=== PATIENT | male | born 1945 | race Caucasian/White ===

== ENCOUNTER 2016-11-05 07:56 | Day surgery (SDC) | payer MEDICARE ==
[2016-11-05] VITALS (7 sets, daily range): BP systolic 91–148; BP diastolic 51–68; PULSE 62–74; RESP 16–20; TEMP 98.4; O2SAT 93–96
[~2016-11-05] VITALS: Ht 172.7 cm; Wt 94.0 kg
[~2016-11-05 07:56] MED LIST: ASPI1TAB7; ATOR40TA49 PO; BUME1TAB PO; CLEAPOW6 PO; CLOP75 PO; METR0.7533 TOP; NITR.4 SL; POTA1TAB17 PO; SOTA120T17 PO; SPIRCAP INH; TAB-TAB PO; TAMS0.4C67 PO; TRIA.1%T TOP
[2016-11-05] MEDS ORDERED: PLAV75TA29 PO (08:36)
[2016-11-05] MEDS ORDERED: SOTA120T PO (08:36)
[2016-11-05] MEDS ORDERED: BUME1TAB26 PO (08:36)
[2016-11-05] MEDS ORDERED: EQUALIQ7 (08:36)
[2016-11-05] MEDS ORDERED: ASPI81TA81 (08:36)
[2016-11-05] MEDS ORDERED: TRIA0.022 TOPICAL (08:36)
[2016-11-05] MEDS ORDERED: POTA-163 PO (08:36)
[2016-11-05] MEDS ORDERED: NITR0.4S SL (08:36)
[2016-11-05] MEDS ORDERED: MULT1TAB78 (08:36)
[2016-11-05] MEDS ORDERED: TAMS0.4C4 PO (08:36)
[2016-11-05] MEDS ORDERED: METR0.756 TOPICAL (08:36)
[2016-11-05] MEDS ORDERED: ATOR40TA16 PO (08:36)
[2016-11-05 08:39] LABS: AUTOMATED NEUTROPHIL # 4.7 TH/MM3 (1.8-7.7); BASOPHIL # 0.1 TH/MM3 (0-0.2); BASOPHIL % 1.1 % (0.0-2.0); EOSINOPHIL # 0.2 TH/MM3 (0-0.4); HEMATOCRIT 39.8 % (39.0-51.0); HEMO FLAGS DIFF FINAL; LYMPH % 23.1 % (9.0-44.0); LYMPHOCYTE # 1.7 TH/MM3 (1.0-4.8); MEAN CELL VOLUME 94.2 FL (80.0-100.0); MEAN CORPUSCULAR HEMOGLOBIN 32.7 PG (27.0-34.0); MEAN CORPUSCULAR HGB CONC 34.7 % (32.0-36.0); MONO % 8.7 % (0.0-8.0); NEUT % 64.1 % (16.0-70.0); PLATELET COUNT 194 TH/MM3 (150-450); RED BLOOD COUNT 4.22 MIL/MM3 (4.50-5.90); RED CELL DISTRIBUTION WIDTH 14.2 % (11.6-17.2); WHITE BLOOD COUNT 7.3 TH/MM3 (4.0-11.0)
[2016-11-05 08:51] LABS: APTT (PATIENT) 26.4 SEC (24.3-30.1); PROTHROMBIN TIME - PATIENT 10.8 SEC (9.8-11.6)
[2016-11-05] MEDS ORDERED: SODIUM CHLOR 0.9% 1000 ML IV SCH (09:00)
[2016-11-05] MEDS ORDERED: LIDOCAINE 1%/EPINEPHrine 1:100,000 SOLN 20 ML VIAL ONE (11:45)
[2016-11-05] MEDS ORDERED: fentaNYL CITRATE 250 MCG/5 ML AMP ONE (12:01)
[2016-11-05] MEDS ORDERED: MIDAZOLAM HCL 5 MG/5 ML VIAL ONE (12:01)
[2016-11-05] MEDS ORDERED: oxyCODONE/ACETAMINOPHEN 5 MG/325 MG TAB PO PRN (13:15)
--- NOTE | 2016-11-05 14:23 | RADRPT ---
EXAM DATE/TIME: 11/05/2016 12:11 [facility] COMPARISON: No previous studies available for comparison. INDICATIONS : Right lung mass. SEDATION TIME: 30 minutes BIOPSY SITE: Right MEDICATION(S): 1.) 2 mg midazolam (Versed) IV 2.) 100 mcg fentanyl (Sublimaze) IV DEVICE(S): 1.) 20 gauge Temno core biopsy needle MEDICAL HISTORY : Cardiovascular disease. SURGICAL HISTORY : Pacemaker. ENCOUNTER: Initial ACUITY: 1 day PAIN SCORE: 0/10 LOCATION: Right chest A total of two core specimen(s) were obtained and sent to the laboratory for pathologic evaluation. PROCEDURE: 1. CT guided lung biopsy. 2. Conscious sedation with continuous EKG and oximetry monitoring. 3. EKG and oximetry remained stable throughout the procedure. Prior to the procedure informed consent was obtained. Any appropriate prior imaging studies were rev iewed. The site was prepped in a sterile fashion. Full sterile technique was used, including cap, mask, patricia rile gloves and gown and a large sterile sheet. Hand hygiene and 2% chlorhexidine and/or betadine/al cohol prep was utilized per protocol for cutaneous antisepsis. The skin and subcutaneous tissues wer e infiltrated with local anesthetic solution. Patient was placed prone. An 18 gauge bradycardia was placed down to the subcarinal region from righ t paravertebral approach. 2 cores were obtained. Follow-up CT scan reveals no pneumothorax. Conscious sedation was performed with the prescribed dosages and duration as above. The patient tracey ated the procedure well and there were no complications. EKG and oximetry remained stable throughout the procedure. The patient was sent to Radiology Outpatient Unit in stable condition. CONCLUSION: Uncomplicated CT guided biopsy. Preliminary pathology is markedly atypical cells. Dayton Ladd MD FACR on November 05, 2016 at 14:21 Board Certified Radiologist. This report was verified electronically.
--- NOTE | 2016-11-05 15:12 | RADRPT ---
EXAM DATE/TIME: 11/05/2016 14:23 [facility] COMPARISON: CHEST SINGLE AP, March 15, 2016, 9:59. CT NEEDLE BIOPSY LUNG, RIGHT, November 05, 2016, 12:11. INDICATIONS : Post lung biopsy MEDICAL HISTORY : None. SURGICAL HISTORY : Pacemaker. ENCOUNTER: Subsequent ACUITY: 1 day PAIN SCORE: 0/10 LOCATION: Bilateral chest FINDINGS: A single frontal expiratory view of the chest was performed. The right lung remains well inflated fo llowing percutaneous lung biopsy. Slight increased density is identified in the right infrahilar ranjan on. Lungs are hypoaerated. Pacemaker is in stable position. CONCLUSION: No evidence of pneumothorax following lung biopsy. Crow Bowman MD on November 05, 2016 at 15:02 Board Certified Radiologist. This report was verified electronically.
[2017-01-25] MEDS ORDERED: TAMS5CAP PO (14:50)
[2017-01-25] MEDS ORDERED: LEVA750T PO (14:57)
[2017-01-25] MEDS ORDERED: AZIT500T2 PO (16:52)
[2017-03-06] MEDS ORDERED: SOTA80 PO (07:18)
[2017-03-26] MEDS ORDERED: PLAV75TA29 PO (14:52)
== END 2016-11-05 15:30 | disposition home or self-care (01) ==
LOC: HRAD 07:56 → HRIP 07:57 → EDSTATUS 08:00 → HRAD 15:30
PROVIDERS: ATTEND Internal Medicine
DX: C34.91 Malignant neoplasm of unspecified part of right bronchus or lung (principal); I50.9 Heart failure, unspecified; I25.10 Atherosclerotic heart disease of native coronary artery without angina pectoris; Z95.0 Presence of cardiac pacemaker; Z79.01 Long term (current) use of anticoagulants; Z87.891 Personal history of nicotine dependence
CPT/HCPCS: 32405; 71010; 77012; 85025; 85610; 85730; 88305; 88333; J2250; J3010

== ENCOUNTER 2016-11-22 06:07 | Day surgery (SDC) | payer MEDICARE ==
[~2016-11-22] VITALS: Ht 172.7 cm; Wt 95.0 kg
[~2016-11-22 06:07] MED LIST changes: +ASPI81TA81; +ATOR40TA16 PO; +BUME1TAB26 PO; +EQUALIQ7; +METR0.756 TOPICAL; +MULT1TAB78; +NITR0.4S SL; +PLAV75TA29 PO; +POTA-163 PO; +SOTA120T PO; +TAMS0.4C4 PO; +TRIA0.022 TOPICAL
[2016-11-22 06:44] VITALS: BP 150/68; PULSE 65; RESP 20; TEMP 98.4; O2SAT 95
[2016-11-22] MEDS ORDERED: SODIUM CHLORIDE 0.9% 1000 ML IV SCH (06:45)
[2016-11-22] MEDS ORDERED: VANCOMYCIN 1000 MG/NS 250 ML - implanted port/tunneled catheter IV SCH ×2 (06:45)
[2016-11-22] MEDS ORDERED: POVIDONE IODINE 5% (ANTISEPSIS KIT) 4 APPLICATIONS EACH NARE SCH (06:45)
[2016-11-22] MEDS ORDERED: CHLORHEXIDINE GLUCONATE 2 % 1 PACK (2 CLOTHS) TOPICAL SCH (06:45)
[2016-11-22] MEDS ORDERED: STOO100C PO (06:48)
[2016-11-22] MEDS ORDERED: SPIRCAP INH (06:48)
[2016-11-22] MEDS ORDERED: PERC5TAB12 PO (06:48)
[2016-11-22 07:23] LABS: APTT (PATIENT) 26.6 SEC (24.3-30.1); PROTHROMBIN TIME - PATIENT 10.7 SEC (9.8-11.6)
[2016-11-22] MEDS ORDERED: diphenhydrAMINE HCL 50 MG/ML VIAL ONE (08:42)
[2016-11-22] MEDS ORDERED: MIDAZOLAM HCL 5 MG/5 ML VIAL ONE (09:07)
[2016-11-22] MEDS ORDERED: LEVOFLOXACIN 500 MG PREMIX INJ 100 ML IV ONE ×2 (09:07→09:30)
[2016-11-22] MEDS ORDERED: fentaNYL CITRATE 250 MCG/5 ML AMP ONE (09:07)
[2016-11-22] MEDS ORDERED: LIDOCAINE 1%/EPINEPHrine 1:100,000 SOLN 20 ML VIAL ONE (09:20)
--- NOTE | 2016-11-22 09:54 | PD.RAD ---
Post Procedure Progress Note Pre Procedure Diagnosis: (1) COPD (chronic obstructive pulmonary disease) (2) Lung cancer Post Procedure Diagnosis: (1) COPD (chronic obstructive pulmonary disease) (2) Lung cancer Procedure Date: Nov 22, 2016 Supervising Radiologist: Oz Pulido Proceduralist/Assist: Noelle Gayle, RT(R)(), Nikki Mahmood RT(R)(CV) Anesthesia: Local, Analgesia, Conscious Sedation Plan of Activity Patient to Unit: ROPU Patient Condition: Good See PACS Report for procedural detail/treatment Central Venous Access Device Procedure 1 Right Internal Jugular Infusaport Placement single lumen Maltese: 8 Oz Pulido MD Nov 22, 2016 09:54
[2016-11-22 10:00] VITALS: BP 143/83; PULSE 64; RESP 16; TEMP 97.6; O2SAT 94
[2016-11-22] MEDS ORDERED: SODIUM CHLORIDE 0.9% FLUSH 5 ML FLUSH IVF PRN (10:00)
[2016-11-22 10:15] VITALS: BP 114/80; PULSE 60; RESP 20; O2SAT 94
[2016-11-22 10:45] VITALS: BP 97/57; PULSE 60; RESP 20; O2SAT 94
[2016-11-22 11:15] VITALS: BP 108/84; PULSE 60; RESP 20; O2SAT 92
--- NOTE | 2016-11-27 14:59 | RADRPT ---
EXAM DATE/TIME: 11/22/2016 09:13 [facility] COMPARISON: No previous studies available for comparison. INDICATIONS : Lung cancer. MEDICAL HISTORY : 1. Lung cancer 2.CHF 3.A fib 4.CAD 5.Kidney stones SURGICAL HISTORY : 1. Pacemaker 2. coronary stents 3. Fem pop graft 4.CEA 5. Iliac bypass 6. TURP ENCOUNTER: Initial ACUITY: 2 months PAIN SCORE: FLUORO TIME: 0.9 minutes SEDATION TIME: 30 minutes ACCESS: Right internal jugular vein SEDATION: 1.) 1.5 mg midazolam (Versed) IV 2.) 100 mcg fentanyl (Sublimaze) IV 3.) 500mg levofloxacin (Levaquin) IV Intra-procedural antibiotics were given as prescribed above. DEVICE: 1. 8 [place]e single lumen Bard Power Port PROCEDURE : 1. Continuous pulse oximetry and EKG monitoring. 2. Intravenous conscious sedation. 3. Ultrasound guidance for venous access. 4. Fluoroscopic guided implantable central venous port placement. The patient was placed supine. The neck was prepped in sterile fashion. Full sterile technique was u sed, including cap, mask, sterile gloves and gown, and a large sterile sheet. Hand hygiene and 2% ch lorhexidine Betadine was utilized per protocol for cutaneous antisepsis with appropriate dry time for site. The skin and subcutaneous tissues were infiltrated with local anesthetic solution. Under direct ultrasound guidance, central venous access was accomplished in the targeted vessel. The ultrasound images depicting access guidance were stored and saved to PACS for permanent record. A s ubcutaneous pocket was created using blunt dissection. The port was introduced to the pocket. The c atheter tubing was fed through a subcutaneous tunnel to the venotomy site. The catheter tubing was c ut to a suitable length and then was introduced through a valved Peel-Away sheath and positioned with catheter tubing tip at the cavo-atrial junction level. The pocket incision was closed with subcutic ular Vicryl suture. Steri-Strips were applied. The port was flushed and locked with heparin solutio n per protocol. Sterile dressing was applied to the site. The patient tolerated the procedure well. Conscious sedation was performed with the prescribed dosages and duration as above. The patient tracey ated the procedure well and there were no complications. EKG and oximetry remained stable throughout the procedure. The patient was sent to post anesthesia recovery in stable condition. CONCLUSION: Uncomplicated ultrasound and fluoroscopic guided implanted central venous port catheter placement as described in detail above. An 8 Surinamese Power port was placed. Oz Pulido MD on November 27, 2016 at 14:57 Board Certified Radiologist. This report was verified electronically.
[2017-01-25] MEDS ORDERED: TAMS5CAP PO (14:50)
[2017-01-25] MEDS ORDERED: LEVA750T PO (14:57)
[2017-01-25] MEDS ORDERED: AZIT500T2 PO (16:52)
[2017-03-06] MEDS ORDERED: SOTA80 PO (07:18)
[2017-03-26] MEDS ORDERED: PLAV75TA29 PO (14:52)
== END 2016-11-22 12:05 | disposition home or self-care (01) ==
LOC: HROP 06:07 → HRIP 06:07 → HROP 12:05
PROVIDERS: ATTEND Internal Medicine
DX: Z45.2 Encounter for adjustment and management of vascular access device (principal); C34.90 Malignant neoplasm of unspecified part of unspecified bronchus or lung
CPT/HCPCS: 36561; 76937; 77001; 85610; 85730; 99152; 99153; C1788; J1200; J1642; J2250; J3010; J3370; J7030; J7050; J1956

== ENCOUNTER 2017-01-31 05:25 | Inpatient (IN) | payer MEDICARE ==
[~2017-01-31] VITALS: Ht 172.7 cm; Wt 91.0 kg
[2017-01-31] VITALS (15 sets, daily range): BP systolic 98–151; BP diastolic 50–67; PULSE 80–95; RESP 16–25; TEMP 96.8–99.7; O2SAT 93–99
[~2017-01-31 05:25] MED LIST changes: +AZIT500T2 PO; -CLEAPOW6 PO; +PERC5TAB12 PO; -SOTA120T17 PO; +STOO100C PO; -TAMS0.4C4 PO; -TAMS0.4C67 PO; +TAMS5CAP PO
[2017-01-31] MEDS ORDERED: ONDANSETRON HCL 4 MG/2 ML VIAL IV PUSH ONE (06:00)
[2017-01-31] MEDS ORDERED: SODIUM CHLORID 0.9% 500 ML INJ 500 ML IV ONE (06:00)
--- NOTE | 2017-01-31 06:16 | PD ---
HPI Chief Complaint: GI Complaint Time Seen by Provider: 05:49 Travel History International Travel<30 days: No Contact w/Intl Traveler<30days: No Traveled to known affect area: No History of Present Illness HPI Patient is a 71-year-old male with history of lung cancer currently receiving chemotherapy, who comes in by EMS after he passed out tonight. She had 3 rounds of chemotherapy that finished Saturday, and says he has been feeling unwell since then. He generally has nausea and vomiting after chemotherapy, and says that that is the same. However tonight he passed out and hit his head on the wall. He is currently on doxycycline for congestion. He has not had any fever or chills. He says he has pain in his esophagus from the chemotherapy. He is on blood thinners. PFSH Past Medical History Hx Anticoagulant Therapy: Yes (PLAVIX) Atrial Fibrillation: Yes Heart Rhythm Problems: Yes (AFIB) Cancer: Yes (LUNG CANCER) Cardiac Catheterization: Yes (STENT) Cardiovascular Problems: Yes (STENT) High Cholesterol: No Chemotherapy: Yes Congestive Heart Failure: Yes Diabetes: No Diminished Hearing: No Hepatitis: No Respiratory: Yes (SLEEP APNEA,COPD) Immunizations Current: Yes Past Surgical History Cardiac Surgery: Yes (PACEMAKER) Coronary Artery Bypass Graft: No Pacemaker: Yes Other Surgery: Yes (LUNG BIOPSY, FEMPOP BYPASS) Social History Alcohol Use: No Tobacco Use: No Substance Use: No Allergies-Medications (Allergen,Severity, Reaction): Coded Allergies: Adhesives (Verified Allergy, Severe, Irritation, 01/31/17) pt. sts from the adhesive in cardiac pads and to use pediatric pads only Morphine (Verified Allergy, Intermediate, Bradycardia, 01/31/17) Penicillin (Verified Allergy, Intermediate, respiratory , 01/31/17) Reported Meds & Prescriptions Reported Meds & Active Scripts Active Azithromycin 500 Mg Tab 500 Mg PO DAILY Flomax (Tamsulosin HCl) 0.4 Mg Cap 0.8 Mg PO HS Plavix (Clopidogrel Bisulfate) 75 Mg Tab 75 Mg PO DAILY Spiriva Handihaler (Tiotropium [place]) 18 Mcg Cap 1 Puff INH DAILY DO NOT SWALLOW CAPSULES Aristocort (Triamcinolone Acetonide) 0.1 % Cre 1 Applic TOP ONCE APPLY TO: [place] (Metronidazole) 0.75 % Gel 1 Applic TOP DAILY APPLY TO: Lipitor 40 Mg Tab (Atorvastatin Calcium) 40 Mg Tab 40 Mg PO DAILY Reported Spiriva Handihaler (Tiotropium Inh) 18 Mcg Cap 18 Mcg INH DAILY 1 capsule = 18 mcg Percocet (Oxycodone-Acetaminophen) 5-325 mg Tab 1 Tab PO Q4H PRN Stool Softener (Docusate Sodium) 100 Mg Cap 1 Cap PO DAILY Equate (Nutritional Supplements) 1 Liq Liq Multivitamin Adults 50+ (Multiple Vitamins W/ Minerals) 1 Tab Tab Aspir-81 (Aspirin) 81 Mg Tabdr Nitrostat SL (Nitroglycerin) 0.4 Mg Subl 0.4 Mg SL DIRECTED PRN 1 tablet under the tongue as needed for chest pain. Repeat every 5 minutes for a total of 3 DOSES or call 911 if NO relief. Triamcinolone Topical 0.025 % Oint 1 Applic TOPICAL BID Metrocream Topical (Metronidazole Topical) 0.75 % Cream 1 Applic TOPICAL BID Sotalol (Sotalol HCl) 120 Mg Tab 120 Mg PO BID Plavix (Clopidogrel Bisulfate) 75 Mg Tab 75 Mg PO DAILY Bumex (Bumetanide) 1 Mg Tab 1 Mg PO DAILY Potassium Chloride ER (Potassium Chloride) 20 Meq Tab 20 Meq PO DAILY Atorvastatin (Atorvastatin Calcium) 40 Mg Tab 40 Mg PO HS Multivitamin (Multivitamins) 1 Tab Tab 1 Tab PO DAILY Potassium Chloride Er (Potassium Chloride) 20 Meq Tab 20 Meq PO DAILY Aspirin 81 mg Tab (Aspirin) 81 Mg Tab 81 Mg DAILY Nitroglycerin Tab 0.4 Mg Sl (Nitroglycerin) 0.4 Mg Subl 0.4 Mg SL DIRECTED to be used as needed for chest pain every 15 minutes x 3 or until chest pain resolved Bumex (Bumetanide) 1 Mg Tab 1 Mg PO DAILY Review of Systems Except as stated in HPI: all other systems reviewed are Neg General / Constitutional: No: Fever, Chills Eyes: No: Blurred Vision HENT: Positive: Headaches Cardiovascular: No: Chest Pain or Discomfort Respiratory: No: Shortness of Breath Gastrointestinal: Positive: Nausea, Vomiting, Diarrhea Musculoskeletal: No: Edema Skin: No Change in Pigmentation Neurologic: Positive: Weakness Physical Exam Narrative GENERAL: Awake and alert, in mild distress. SKIN: Focused skin assessment warm/dry. HEAD: Atraumatic. Normocephalic. No obvious hematoma EYES: Pupils equal and round. No scleral icterus. Extraocular movements intact. ENT: Mucous membranes pink and moist. NECK: Trachea midline. No JVD. No cervical spine tenderness. CARDIOVASCULAR: Regular rate and rhythm. No murmur appreciated. RESPIRATORY: No accessory muscle use. Clear to auscultation. Breath sounds equal bilaterally. GASTROINTESTINAL: Abdomen soft, non-tender, nondistended. MUSCULOSKELETAL: No obvious deformities. No clubbing. No cyanosis. No edema. Large hematoma to the left hand. NEUROLOGICAL: Awake and alert. No obvious cranial nerve deficits. Motor grossly within normal limits. Normal speech. PSYCHIATRIC: Appropriate mood and affect; insight and judgment normal. Data Data Last Documented VS Vital Signs Date Time Temp Pulse Resp B/P Pulse Ox O2 Delivery O2 Flow Rate FiO2 01/31/17 07:01 84 16 120/56 96 Room Air 01/31/17 05:43 98.6 Orders Complete Blood Count With Diff (01/31/17 05:49) Basic Metabolic Panel (Bmp) (01/31/17 05:49) Act Partial Throm Time (Ptt) (01/31/17 05:49) Prothrombin Time / Inr (Pt) (01/31/17 05:49) Ct Brain W/O Iv Contrast(Rout) (01/31/17 ) Chest, Single Ap (01/31/17 ) Ondansetron Inj (Zofran Inj) (01/31/17 06:00) Sodium Chlorid 0.9% 500 Ml Inj (Ns 500 M (01/31/17 06:00) Hand, Complete (Xeh2heb) (01/31/17 ) Electrocardiogram (01/31/17 ) Troponin I (01/31/17 06:16) Cefepime Inj (Maxipime Inj) (01/31/17 06:45) Vancomycin Inj (Vancomycin Inj) (01/31/17 06:45) Blood Culture (01/31/17 06:40) Type And Screen (01/31/17 06:40) Red Blood Cells (Rbc) (01/31/17 06:40) Platelet Pheresis (01/31/17 06:40) Blood Product Administration .UPON TRANSFUSION (01/31/17 06:40) Sodium Chlor 0.9% 250 Ml Inj (Ns 250 Ml (01/31/17 06:45) Labs Laboratory Tests Test 01/31/17 06:00 White Blood Count 0.5 TH/MM3 Red Blood Count 2.39 MIL/MM3 Hemoglobin 7.7 GM/DL Hematocrit 21.5 % Mean Corpuscular Volume 89.9 FL Mean Corpuscular Hemoglobin 32.3 PG Mean Corpuscular Hemoglobin 36.0 % Concent Red Cell Distribution Width 19.6 % Platelet Count 5 TH/MM3 Mean Platelet Volume 10.5 FL Neutrophils (%) (Auto) % Lymphocytes (%) (Auto) % Monocytes (%) (Auto) % Eosinophils (%) (Auto) % Basophils (%) (Auto) % Neutrophils # (Auto) TH/MM3 Lymphocytes # (Auto) TH/MM3 Monocytes # (Auto) TH/MM3 Eosinophils # (Auto) TH/MM3 Basophils # (Auto) TH/MM3 CBC Comment AUTO DIFF Differential Total Cells 50 Counted Lymphocytes % 88 % Monocytes % 2 % Eosinophils % 8 % Basophils % 2 % Differential Comment FINAL DIFF MANUAL Atypical Lymphocytes % Platelet Estimate RARE Platelet Morphology Comment NORMAL Ovalocytes 1+ Keratocytes OCC Prothrombin Time 11.4 SEC Prothromb Time International 1.0 RATIO Ratio Activated Partial 24.4 SEC Thromboplast Time Sodium Level 137 MEQ/L Potassium Level 3.0 MEQ/L Chloride Level 104 MEQ/L Carbon Dioxide Level 21.7 MEQ/L Anion Gap 11 MEQ/L Blood Urea Nitrogen 20 MG/DL Creatinine 0.92 MG/DL Estimat Glomerular Filtration 81 ML/MIN Rate Random Glucose 139 MG/DL Calcium Level 8.4 MG/DL [facility] Medical Decision Making Medical Screen Exam Complete: Yes Emergency Medical Condition: Yes Medical Record Reviewed: Yes Interpretation(s) ECG is paced Differential Diagnosis Nausea and vomiting secondary to chemotherapy versus neutropenia versus ICH versus arrhythmia Narrative Course Patient is a 71-year-old male with history of lung cancer, on chemotherapy who comes in after syncopal episode tonight. Patient is a large hematoma to his left hand. IV established, labs sent. Labs show a white blood cell count of 0.5. Platelets are 5. Hemoglobin is 7.7. CT head performed shows no acute abnormalities. X-ray of his hand just shows soft tissue swelling. I spoke with Dr. Hays from oncology who suggests transfusion of red blood cells as well as platelets. This was ordered. Blood culture sent. Given cefepime and vancomycin. Will be admitted for further management. Given Zofran and fluids with improvement of his symptoms. Diagnosis Primary Impression: Pancytopenia Additional Impressions: Neutropenia Qualified Code: D70.1 - Chemotherapy-induced neutropenia Syncope Qualified Code: R55 - Syncope, unspecified syncope type Admitting Information Admitting Physician Requests: it Jennifer Cruz MD Jan 31, 2017 06:16
[2017-01-31 06:18] LABS: APTT (PATIENT) 24.4 SEC (24.3-30.1); PROTHROMBIN TIME - PATIENT 11.4 SEC (9.8-11.6)
--- NOTE | 2017-01-31 06:18 | RADRPT ---
EXAM DATE/TIME: 01/31/2017 05:47 [facility] COMPARISON: CHEST SINGLE AP, March 15, 2016, 9:59. INDICATIONS : Cough. MEDICAL HISTORY : Carcinoma, lung. Congestive heart failure. Renal calculi. A-Fib CAD SURGICAL HISTORY : Pacemaker. Coronary artery stent. ENCOUNTER: Initial ACUITY: 1 day PAIN SCORE: 0/10 LOCATION: Bilateral chest FINDINGS: A single view of the chest demonstrates the lungs to be symmetrically aerated without evidence of mas s, infiltrate or effusion. The cardiomediastinal contours are unremarkable. Osseous structures are intact. Chronic elevation of the left hemidiaphragm. Dual-lead pacing device on the left side. Power port on the right side. CONCLUSION: No acute disease. Thomas Díaz Jr., MD on January 31, 2017 at 6:16 Board Certified Radiologist. This report was verified electronically.
[2017-01-31 06:19] LABS: HEMATOCRIT 21.5 % (39.0-51.0); MEAN CELL VOLUME 89.9 FL (80.0-100.0); MEAN CORPUSCULAR HEMOGLOBIN 32.3 PG (27.0-34.0); RED BLOOD COUNT 2.39 MIL/MM3 (4.50-5.90); RED CELL DISTRIBUTION WIDTH 19.6 % (11.6-17.2); WHITE BLOOD COUNT 0.5 TH/MM3 (4.0-11.0)
[2017-01-31 06:24] LABS: BICARBONATE 21.7 MEQ/L (21.0-32.0)
--- NOTE | 2017-01-31 06:26 | RADRPT ---
EXAM DATE/TIME: 01/31/2017 06:07 [facility] COMPARISON: No previous studies available for comparison. INDICATIONS : Fell forward and hit head on wall. Patient on chemotherapy and Plavix. RADIATION DOSE: 49.85 CTDIvol (mGy) MEDICAL HISTORY : Carcinoma, lung. Cardiovascular disease SURGICAL HISTORY : Cardiac stent, pacemaker ENCOUNTER: Initial ACUITY: 1 day PAIN SCALE: 3/10 LOCATION: Bilateral cranial TECHNIQUE: Multiple contiguous axial images were obtained of the head. Using automated exposure control and adj ustment of the mA and/or kV according to patient size, radiation dose was kept as low as reasonably a chievable to obtain optimal diagnostic quality images. FINDINGS: CEREBRUM: The ventricles are normal for age. No evidence of midline shift, mass lesion, hemorrhage or acute in farction. No extra-axial fluid collections are seen. POSTERIOR FOSSA: The cerebellum and brainstem are intact. The 4th ventricle is midline. The cerebellopontine angle i s unremarkable. EXTRACRANIAL: The visualized portion of the orbits is intact. Complete opacification of the ethmoid air cells bilat erally. Minimal mucosal thickening of the maxillary sinuses bilaterally. SKULL: The calvaria is intact. No evidence of skull fracture. CONCLUSION: 1. No acute intracranial abnormality. 2. 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 Thomas Díaz Jr., MD on January 31, 2017 at 6:23 Board Certified Radiologist. This report was verified electronically.
[2017-01-31 06:30] LABS: HEMO FLAGS AUTO DIFF
[2017-01-31 06:31] LABS: PLATELET COUNT 5 TH/MM3 (150-450)
[2017-01-31] MEDS ORDERED: VANCOMYCIN INJ 1,000 MG in SODIUM CHLOR 0.9% 250 ML INJ 250 ML IV ONE (06:45)
[2017-01-31] MEDS ORDERED: SODIUM CHLOR 0.9% 250 ML INJ 250 ML IV ONE (06:45)
[2017-01-31] MEDS ORDERED: CEFEPIME INJ 2,000 MG in SODIUM CHLORIDE 0.9% INJ 100 ML IV ONE (06:45)
--- NOTE | 2017-01-31 06:54 | RADRPT ---
EXAM DATE/TIME: 01/31/2017 06:18 [facility] COMPARISON: No previous studies available for comparison. INDICATIONS : Left hand hematoma post fall. MEDICAL HISTORY : Carcinoma, lung. Congestive heart failure. Renal calculi. A-fib CAD SURGICAL HISTORY : Pacemaker. Coronary artery stent. ENCOUNTER: Subsequent ACUITY: 1 day PAIN SCORE: 5/10 LOCATION: Left hand FINDINGS: Three view examination of the left hand demonstrates no dislocation or fracture. Dorsal soft tissue s welling. The carpal bones appear intact. The interphalangeal and metacarpophalangeal joints are int act. Bony mineralization is normal. CONCLUSION: 1. Dorsal soft tissue swelling. Thomas Díaz Jr., MD on January 31, 2017 at 6:51 Board Certified Radiologist. This report was verified electronically.
[2017-01-31 07:13] LABS: BASOPHILS 2 % (0-2); EOSINOPHILS 8 % (0-4); WBC DIFF SAMPLE 50
[2017-01-31 07:14] LABS: KERATOCYTES OCC (NORMAL); OVALOCYTES 1+ (NORMAL); PLATELET ESTIMATE SMEAR RARE (NORMAL); PLATELET MORPHOLOGY NORMAL (NORMAL); SCAN/DIFF FINAL DIFF MANUAL
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
[2017-01-31] MEDS ORDERED: SODIUM CHLORIDE 0.9% FLUSH 10 ML FLUSH IV FLUSH PRN (08:15)
[2017-01-31] MEDS ORDERED: MORPHINE SULFATE 4 MG/ML INJ IV PRN (08:15)
[2017-01-31] MEDS ORDERED: oxyCODONE/ACETAMINOPHEN 5 MG/325 MG TAB PO PRN (08:15)
[2017-01-31] MEDS ORDERED: oxyCODONE/ACETAMINOPHEN 10 MG/325 MG TAB PO PRN (08:15)
[2017-01-31] MEDS ORDERED: ZOLPIDEM TARTRATE 5 MG TAB PO PRN (08:15)
[2017-01-31] MEDS ORDERED: NITROGLYCERIN 0.4 MG SL 25 TABS/BTL SL PRN (08:15)
[2017-01-31] MEDS: BUMETANIDE 1 MG TAB PO SCH (09:00)
[2017-01-31] MEDS: DOCUSATE SODIUM 100 MG CAP PO SCH (09:00)
[2017-01-31] MEDS: SODIUM CHLORIDE 0.9% FLUSH 10 ML FLUSH IV FLUSH SCH ×2 (09:00→19:50)
[2017-01-31] MEDS ORDERED: PILL SPLITTER OTHER PRN (09:30)
[2017-01-31] MEDS: FLUOCINOLONE ACETONIDE 0.01% CR 15 GM TUBE TOPICAL SCH ×2 (10:00→19:56)
[2017-01-31] MEDS ORDERED: POTASSIUM CHLORIDE 20 MEQ CONTROLLED RELEASE TAB PO SCH (10:00)
[2017-01-31] MEDS: TIOTROPIUM BROMIDE 18 MCG INH INH SCH (11:35)
[2017-01-31] MEDS: SOTALOL HCL 80 MG TAB PO SCH ×2 (11:35→19:55)
--- NOTE | 2017-01-31 12:48 | EKG ---
Date Performed: 01/31/2017 Time Performed: 07:07:12 PTAGE: 71 years EKG: ELECTRONIC ATRIAL PACEMAKER ABNORMAL RHYTHM ECG PREVIOUS TRACING : 03/16/2016 08.04 Compared to prior tracing no significant change DOCTOR: Cesar Bhat Interpretating Date/Time 01/31/2017 12:46:55
[2017-01-31] MEDS: SODIUM CHLOR 0.9% 1000 ML INJ 1,000 ML IV SCH (17:29)
[2017-01-31 17:41] LABS: MEAN CELL VOLUME 85.1 FL (80.0-100.0); MEAN CORPUSCULAR HEMOGLOBIN 29.9 PG (27.0-34.0); MEAN CORPUSCULAR HGB CONC 35.2 % (32.0-36.0); RED BLOOD COUNT 2.39 MIL/MM3 (4.50-5.90); RED CELL DISTRIBUTION WIDTH 22.6 % (11.6-17.2); WHITE BLOOD COUNT 0.3 TH/MM3 (4.0-11.0)
[2017-01-31 18:11] LABS: HEMO FLAGS AUTO DIFF
[2017-01-31 18:15] LABS: HEMATOCRIT 20.3 % (39.0-51.0); PLATELET COUNT 18 TH/MM3 (150-450)
[2017-01-31 19:23] LABS: BASOPHILS 1 % (0-2); EOSINOPHILS 8 % (0-4); WBC DIFF SAMPLE 100
[2017-01-31 19:24] LABS: OVALOCYTES 1+ (NORMAL)
[2017-01-31 19:25] LABS: PLATELET ESTIMATE SMEAR RARE (NORMAL); PLATELET MORPHOLOGY NORMAL (NORMAL); SCAN/DIFF FINAL DIFF MANUAL; TEARDROP RBCS 1+ (NORMAL)
[2017-01-31] MEDS: TAMSULOSIN HCL 0.4 MG CAP PO SCH (19:54)
[2017-01-31] MEDS: ATORVASTATIN 40 MG TAB PO SCH (19:54)
[2017-01-31] MEDS ORDERED: POTASSIUM CHLORIDE 20 MEQ CONTROLLED RELEASE TAB PO ONE (20:00)
[2017-01-31 21:03] LABS: MEAN CORPUSCULAR HGB CONC 36.1 % (32.0-36.0)
--- NOTE | 2017-01-31 23:15 | PD.ONC.PN ---
Subjective Subjective Remarks Patient seen earlier in AM Full consult dictated patient with Limited stage small cell carcinoma--presents with Pancytopenia and syncopal episode due to severe anemia Transfuse 1 unit of pRBC and platelets Keep Hb > [address] > 10 Start IV cefepime follow blood cultures Will follow patient along Objective Data Date Time Temp Pulse Resp B/P Pulse Ox O2 Delivery O2 Flow Rate FiO2 01/31/17 20:00 96.8 80 17 111/56 93 01/31/17 16:00 99.7 85 18 98/50 95 01/31/17 14:50 95 01/31/17 12:40 97.3 80 18 108/50 95 01/31/17 11:50 88 17 122/59 96 Nasal Cannula 01/31/17 11:00 86 17 113/52 97 Nasal Cannula 2 01/31/17 10:37 98.2 82 25 99/53 95 Room Air 01/31/17 10:09 98.6 90 19 112/56 96 Room Air 01/31/17 09:17 98.2 89 21 116/58 98 Room Air 01/31/17 08:43 98.1 90 24 115/55 97 Room Air 01/31/17 08:20 98.6 80 21 111/57 95 Room Air 01/31/17 07:01 84 16 120/56 96 Room Air 01/31/17 05:43 98.6 82 20 151/67 99 Room Air 01/31/17 05:42 20 01/31/17 05:39 98.6 82 20 151/67 99 01/31/17 01/31/17 01/31/17 07:00 15:00 23:00 Intake Total 480 ml 240 ml Output Total 400 ml 400 ml Balance 80 ml -160 ml Result Diagram: 01/31/17 1729 01/31/17 0600 Laboratory Results Laboratory Tests Test 01/31/17 01/31/17 01/31/17 01/31/17 06:00 07:10 17:29 19:27 White Blood Count 0.5 TH/MM3 0.3 TH/MM3 Red Blood Count 2.39 MIL/MM3 2.39 MIL/MM3 Hemoglobin 7.7 GM/DL 7.1 GM/DL Hematocrit 21.5 % 20.3 % Mean Corpuscular Volume 89.9 FL 85.1 FL Mean Corpuscular Hemoglobin 32.3 PG 29.9 PG Mean Corpuscular Hemoglobin 36.0 % 35.2 % Concent Red Cell Distribution Width 19.6 % 22.6 % Platelet Count 5 TH/MM3 18 TH/MM3 Mean Platelet Volume 10.5 FL 7.3 FL Neutrophils (%) (Auto) % % Lymphocytes (%) (Auto) % % Monocytes (%) (Auto) % % Eosinophils (%) (Auto) % % Basophils (%) (Auto) % % Neutrophils # (Auto) TH/MM3 TH/MM3 Lymphocytes # (Auto) TH/MM3 TH/MM3 Monocytes # (Auto) TH/MM3 TH/MM3 Eosinophils # (Auto) TH/MM3 TH/MM3 Basophils # (Auto) TH/MM3 TH/MM3 CBC Comment AUTO DIFF AUTO DIFF Differential Total Cells 50 100 Counted Lymphocytes % 88 % 82 % Monocytes % 2 % 9 % Eosinophils % 8 % 8 % Basophils % 2 % 1 % Differential Comment FINAL DIFF FINAL DIFF MANUAL MANUAL Atypical Lymphocytes % Platelet Estimate RARE RARE Platelet Morphology Comment NORMAL NORMAL Ovalocytes 1+ 1+ Keratocytes OCC Prothrombin Time 11.4 SEC Prothromb Time International 1.0 RATIO Ratio Activated Partial 24.4 SEC Thromboplast Time Sodium Level 137 MEQ/L Potassium Level 3.0 MEQ/L Chloride Level 104 MEQ/L Carbon Dioxide Level 21.7 MEQ/L Anion Gap 11 MEQ/L Blood Urea Nitrogen 20 MG/DL Creatinine 0.92 MG/DL Estimat Glomerular Filtration 81 ML/MIN Rate Random Glucose 139 MG/DL Calcium Level 8.4 MG/DL Troponin I LESS THAN 0.02 NG/ML Blood Type A POSITIVE A POSITIVE Antibody Screen NEGATIVE Crossmatch Leukocyte-Reduced Leukocyte-Reduced Red Blood Red Blood Cells Cells Blood Bank Comment Neutrophils # (Manual) 0.0 TH/MM3 Tear Drop Cells 1+ Culture Results Microbiology Date/Time Procedure Status Source Growth 01/31/17 07:05 Aerobic Blood Culture Received Blood Peripheral Pending 01/31/17 07:05 Anaerobic Blood Culture Received Blood Peripheral Pending 01/31/17 07:10 Aerobic Blood Culture Received Blood Peripheral Pending 01/31/17 07:10 Anaerobic Blood Culture Received Blood Peripheral Pending Imaging Studies Last [address] 01/31/17 0000 Signed Impressions: Service Date/Time: January 06:07 - CONCLUSION: 1. No acute intracranial abnormality. 2. 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 Thomas Díaz Jr., MD Hand X-Ray 01/31/17 0000 Signed Impressions: Service Date/Time: January 06:18 - CONCLUSION: 1. Dorsal soft tissue swelling. Thomas Díaz Jr., MD Chest X-Ray 01/31/17 0000 Signed Impressions: Service Date/Time: January 05:47 - CONCLUSION: No acute disease. Thomas Díaz Jr., MD Administered Medications Medications (Trade) Dose Ordered Sig/Arron Route PRN Reason Start Time Stop Time Status Last Admin Dose Admin Sodium Chloride (NS 250 ml Inj) 250 ml @ 15 mls/hr ONCE ONCE IV 01/31/17 06:45 01/31/17 23:24 01/31/17 10:40 Atorvastatin Calcium (Lipitor) 40 mg HS PO 01/31/17 21:00 01/31/17 19:54 Tamsulosin HCl (Flomax) 0.8 mg HS PO 01/31/17 21:00 01/31/17 19:54 Tiotropium [place] (Spiriva Inh) 18 mcg DAILY INH 01/31/17 10:00 01/31/17 11:35 Sotalol HCl 120 mg 120 mg BID PO 01/31/17 10:00 01/31/17 19:55 Sodium Chloride (NS 1000 ml Inj) 1,000 ml @ 70 mls/hr [id number] IV 01/31/17 17:00 01/31/17 17:29 Danilo Michelle MD Jan 31, 2017 23:15
[2017-01-31] MEDS ORDERED: POTASSIUM CHLORIDE 25 MEQ EFFERVESCENT TAB PO ONE (23:45)
[2017-01-31] MEDS: CEFEPIME INJ 2,000 MG in SODIUM CHLORIDE 0.9% INJ 100 ML IV SCH (23:48)
[2017-02-01] VITALS (9 sets, daily range): BP systolic 102–118; BP diastolic 53–57; PULSE 71–82; RESP 16–18; TEMP 96.7–98.2; O2SAT 94–100
[2017-02-01] MEDS ORDERED: POTASSIUM CHLORIDE 10 MEQ CONTROLLED RELEASE TAB PO ONE (00:15)
[2017-02-01 05:22] LABS: HEMATOCRIT 23.5 % (39.0-51.0); MEAN CELL VOLUME 83.1 FL (80.0-100.0); RED BLOOD COUNT 2.82 MIL/MM3 (4.50-5.90); RED CELL DISTRIBUTION WIDTH 22.4 % (11.6-17.2); WHITE BLOOD COUNT 0.4 TH/MM3 (4.0-11.0)
[2017-02-01 05:32] LABS: HEMO FLAGS AUTO DIFF
[2017-02-01 05:33] LABS: PLATELET COUNT 13 TH/MM3 (150-450)
[2017-02-01 05:46] LABS: BICARBONATE 24.4 MEQ/L (21.0-32.0); POTASSIUM 3.4 MEQ/L (3.5-5.1)
[2017-02-01 06:42] LABS: BASOPHILS 2 % (0-2); EOSINOPHILS 4 % (0-4); WBC DIFF SAMPLE 50
[2017-02-01 06:43] LABS: OVALOCYTES 1+ (NORMAL); PLATELET ESTIMATE SMEAR RARE (NORMAL); PLATELET MORPHOLOGY NORMAL (NORMAL); SCAN/DIFF FINAL DIFF MANUAL
[2017-02-01] MEDS: TIOTROPIUM BROMIDE 18 MCG INH INH SCH (08:09)
[2017-02-01] MEDS: SODIUM CHLOR 0.9% 1000 ML INJ 1,000 ML IV SCH ×2 (08:10→19:29)
[2017-02-01] MEDS: SOTALOL HCL 80 MG TAB PO SCH ×2 (08:10→20:17)
[2017-02-01] MEDS: CEFEPIME INJ 2,000 MG in SODIUM CHLORIDE 0.9% INJ 100 ML IV SCH ×4 (08:10→23:39)
[2017-02-01] MEDS: FLUOCINOLONE ACETONIDE 0.01% CR 15 GM TUBE TOPICAL SCH ×2 (08:11→20:11)
[2017-02-01] MEDS: SODIUM CHLORIDE 0.9% FLUSH 10 ML FLUSH IV FLUSH SCH ×2 (08:11→20:17)
[2017-02-01] MEDS: POTASSIUM CHLORIDE 10 MEQ CONTROLLED RELEASE TAB PO SCH (08:11)
[2017-02-01] MEDS: BUMETANIDE 1 MG TAB PO SCH (08:11)
[2017-02-01] MEDS: DOCUSATE SODIUM 100 MG CAP PO SCH (08:11)
[2017-02-01] MEDS ORDERED: POTASSIUM CHLORIDE 25 MEQ EFFERVESCENT TAB PO SCH (09:00)
--- NOTE | 2017-02-01 09:01 | MB ---
cc: KYREE WARREN DATE OF CONSULTATION 01/31/2017 DATE OF 1945 REASON FOR CONSULTATION Patient with a history of stage III small-cell lung cancer who presents with an episode of syncope. CHIEF COMPLAINT Lightheadedness, weakness. HISTORY OF PRESENT ILLNESS Mr. Charles Venegas is a 71-year-old male who has a diagnosis of stage III, T2, N2, M0 limited stage small-cell lung cancer who is currently getting concurrent chemotherapy and radiation treatments. He is being treated with cisplatin and Etoposide. He recently completed cycle #3 of his treatments. His last treatment was completed on January 24. The patient presented to the emergency department after he experienced an episode of syncope. He states that he was sitting on the toilet when he felt lightheaded and he fell down. He was unresponsive for two to three minutes, but then he became awake and alert and responded to conversations. He was brought to the emergency department. The patient was found to have a white blood cell count of 0.5 with undetectable neutrophils, a hemoglobin of 7.7 and platelet count of 5. Serum chemistries show potassium of 3, chloride of 104, CO2 of 21.7, creatinine was 0.92, GFR was 81, calcium was 8.4. Hematology was called and the patient is being given one unit of packed red blood cells and one unit of platelets. At the time of the this encounter, the patient was awake and alert. He felt cold. He has not had any fevers. He denies any headaches, no blurry vision. No cough or congestion. No chest pain or abdominal pain. He does not have any lower extremity edema. His ECOG performance status is zero. REVIEW OF SYSTEMS A comprehensive 14-point review of system was completed which is negative except as described in the HPI. PAST MEDICAL HISTORY 1. Stage III small-cell lung cancer and currently getting concurrent chemotherapy and radiation. 2. History of BPH status post TURP. 3. History of carotid artery stenosis status post CEA. 4. Peripheral artery disease status post multiple stents and Bypasses. 5. Bilateral subclavian stenosis. 6. Hypertension 7. Paroxysmal a. fib status post ablation. PAST SURGICAL HISTORY 1. History of lung biopsy. 2. Right carotid artery endarterectomy 3. Aortoiliac bypass bilateral 4. Bilateral femoropopliteal bypass with grafts 5. Pacemaker in 2010 6. Ablation for A. Fib in 2011 7. Tonsillectomy and adenoidectomy as a child 8. Cataracts 9. Cardiac cath with stent placement in 2016. ALLERGIES HE IS ALLERGIC TO ADHESIVES, MORPHINE AND PENICILLIN. FAMILY HISTORY A family history significant for stroke, congestive heart failure and liver cancer. SOCIAL HISTORY He is . He drinks two glass of wine per week. He has a 150 pack-year smoking history, quit in 2006. No history of illicit drug use. PHYSICAL EXAMINATION VITAL SIGNS: Blood pressure is 108/50, pulse is 80, temperature is 97.3, O2 sats are 95% on room air. GENERAL: Acutely ill patient appears weak, pale having shivers. HEENT: Pupils are equal, round, reactive to light. EOMI. No oral thrush. No oral lesions. NECK: Supple. No JVD, no bruits or lymphadenopathy. CHESTS: Clear to auscultation bilaterally. CARDIAC: S1-S2, soft systolic murmur. ABDOMEN: Soft, nontender, nondistended. EXTREMITIES: No edema, erythema or cyanosis. SKIN: Without any petechiae, lesion or bruises. NEUROLOGIC: No focal deficits. PSYCHIATRIC: Mood and affect is appropriate. LABORATORY DATA WBC 0.5, hemoglobin 7.7, MCV 89.9. Sodium is 137, potassium 3, chloride 104, CO2 21.7, BUN 20, creatinine 0.92, GFR is 81, calcium 8.4. Coags show an INR of one. PT of 11.4, PTT 24.4. IMAGING STUDIES Chest x-ray was reviewed. No acute pulmonary disease. Hand x-ray, dorsal soft tissue swelling. CT of the head does not show any acute intracranial abnormality, chronic ethmoid and maxillary sinus disease. ASSESSMENT/PLAN This is a 71-year-old male with a diagnosis of stage III small-cell lung cancer. He has limited stage disease. He is being treated with concurrent chemotherapy and radiation. He just received cycle #3 of cisplatin and Etoposide. He presents to the emergency department with an episode of syncope and a fall. 1. Syncope. This is secondary to acute anemia and intravascular volume loss. His hemoglobin was 7.7, I agree with transfusing him one unit of packed red blood cells. We may have to transfuse him additional units of packed red blood cells. CT of the head was negative for any acute abnormalities. Troponins are negative. I do not believe The syncope is related to any cardiac or neurologic abnormality. 2. Acute anemia due to chemotherapy. Packed red blood cell transfusion as stated above. 3. Severe neutropenia 2/2 to chemotherapy. He has not had any fever. He does have chills. I would start him on IV cefepime. Blood cultures are pending. The patient has received Neulasta injection at this point there will not be any benefit of placing this patient on Neupogen injections. 4. Acute thrombocytopenia. This is severe, platelet count of five. We will transfuse him one unit of platelets, monitor daily CBC and CMP. 5. Hypokalemia. Replace potassium. 6. Intravascular volume loss and dehydration, IV fluids. 7. Limited stage small-cell lung cancer. Further treatment will be given outpatient. Thank you for allowing me to participate in the care of this patient. I will continue to follow this patient along. MD GONZALEZ Sexton/RADHA /5:12 PM /8:33 AM JOHN
--- NOTE | 2017-02-01 13:04 | PD.ONC.PN ---
Subjective Subjective Remarks Afebrile overnight. Patient still feeling weak, but better than yesterday. Had nosebleed last night. at bedside. Objective Data Date Time Temp Pulse Resp B/P Pulse Ox O2 Delivery O2 Flow Rate FiO2 02/01/17 08:07 97.2 73 16 113/57 95 02/01/17 08:03 71 02/01/17 04:00 98.2 75 16 111/56 94 02/01/17 00:53 96.7 75 17 107/53 96 02/01/17 00:00 97.9 75 16 104/55 95 01/31/17 21:04 82 18 102/51 96 01/31/17 20:00 96.8 80 17 111/56 93 01/31/17 16:00 99.7 85 18 98/50 95 01/31/17 14:50 95 Result Diagram: 02/01/17 0430 02/01/17 0430 Laboratory Results Laboratory Tests Test 01/31/17 01/31/17 02/01/17 17:29 19:27 04:30 White Blood Count 0.3 TH/MM3 0.4 TH/MM3 Red Blood Count 2.39 MIL/MM3 2.82 MIL/MM3 Hemoglobin 7.1 GM/DL 8.5 GM/DL Hematocrit 20.3 % 23.5 % Mean Corpuscular Volume 85.1 FL 83.1 FL Mean Corpuscular Hemoglobin 29.9 PG 30.0 PG Mean Corpuscular Hemoglobin 35.2 % 36.1 % Concent Red Cell Distribution Width 22.6 % 22.4 % Platelet Count 18 TH/MM3 13 TH/MM3 Mean Platelet Volume 7.3 FL 8.6 FL Neutrophils (%) (Auto) % % Lymphocytes (%) (Auto) % % Monocytes (%) (Auto) % % Eosinophils (%) (Auto) % % Basophils (%) (Auto) % % Neutrophils # (Auto) TH/MM3 TH/MM3 Lymphocytes # (Auto) TH/MM3 TH/MM3 Monocytes # (Auto) TH/MM3 TH/MM3 Eosinophils # (Auto) TH/MM3 TH/MM3 Basophils # (Auto) TH/MM3 TH/MM3 CBC Comment AUTO DIFF AUTO DIFF Differential Total Cells 100 50 Counted Lymphocytes % 82 % 92 % Monocytes % 9 % 2 % Eosinophils % 8 % 4 % Basophils % 1 % 2 % Neutrophils # (Manual) 0.0 TH/MM3 0.0 TH/MM3 Differential Comment FINAL DIFF FINAL DIFF MANUAL MANUAL Platelet Estimate RARE RARE Platelet Morphology Comment NORMAL NORMAL Tear Drop Cells 1+ Ovalocytes 1+ 1+ Blood Type A POSITIVE Crossmatch Leukocyte-Reduced Red Blood Cells Blood Bank Comment Sodium Level 141 MEQ/L Potassium Level 3.4 MEQ/L Chloride Level 107 MEQ/L Carbon Dioxide Level 24.4 MEQ/L Anion Gap 10 MEQ/L Blood Urea Nitrogen 15 MG/DL Creatinine 0.68 MG/DL Estimat Glomerular Filtration 115 ML/MIN Rate Random Glucose 101 MG/DL Calcium Level 8.2 MG/DL Culture Results Microbiology Date/Time Procedure Status Source Growth 01/31/17 07:05 Aerobic Blood Culture - Preliminary Resulted Blood Peripheral NO GROWTH IN 1 DAY 01/31/17 07:05 Anaerobic Blood Culture - Preliminary Resulted Blood Peripheral NO GROWTH IN 1 DAY 01/31/17 07:10 Aerobic Blood Culture - Preliminary Resulted Blood Peripheral NO GROWTH IN 1 DAY 01/31/17 07:10 Anaerobic Blood Culture - Preliminary Resulted Blood Peripheral NO GROWTH IN 1 DAY Imaging Studies Last Impressions Head CT 01/31/17 0000 Signed Impressions: Service Date/Time: January 06:07 - CONCLUSION: 1. No acute intracranial abnormality. 2. 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 Thomas Díaz Jr., MD Hand X-Ray 01/31/17 0000 Signed Impressions: Service Date/Time: January 06:18 - CONCLUSION: 1. Dorsal soft tissue swelling. Thomas Díaz Jr., MD Chest X-Ray 01/31/17 0000 Signed Impressions: Service Date/Time: January 05:47 - CONCLUSION: No acute disease. Thomas Díaz Jr., MD Administered Medications Medications (Trade) Dose Ordered Sig/Arron Route PRN Reason Start Time Stop Time Status Last Admin Dose Admin Atorvastatin Calcium (Lipitor) 40 mg HS PO 01/31/17 21:00 01/31/17 19:54 Tamsulosin HCl (Flomax) 0.8 mg HS PO 01/31/17 21:00 01/31/17 19:54 Tiotropium [place] (Spiriva Inh) 18 mcg DAILY INH 01/31/17 10:00 02/01/17 08:09 Sotalol HCl 120 mg 120 mg BID PO 01/31/17 10:00 02/01/17 08:10 Sodium Chloride 1,000 ml @ 70 mls/hr [id number] IV 01/31/17 17:00 02/01/17 08:10 Cefepime HCl/ Sodium Chloride (Maxipime Inj/NS Inj) 100 ml @ 200 mls/hr Q8H IV 02/01/17 00:00 02/01/17 08:10 Potassium Chloride (KCl) 20 meq DAILY PO 02/01/17 09:00 02/01/17 08:11 Objective Remarks GENERAL: Elderly male, sitting upright in bed, weak appearing. SKIN: Warm and dry. HEAD: Normocephalic. EYES: No scleral icterus. No injection or drainage. NECK: Supple, trachea midline. CARDIOVASCULAR: Regular rate and rhythm RESPIRATORY: Breath sounds equal bilaterally. No accessory muscle use. GASTROINTESTINAL: Abdomen soft, non-tender, nondistended. EXTREMITIES: No cyanosis, or edema. NEUROLOGICAL: No obvious focal deficit. Awake, alert, and oriented x3. Assessment/Plan Problem List: (1) Lung cancer Status: Acute Plan: --further treatment will be outpatient -- currently getting concurrent chemotherapy (cisplatin and Etoposide) and radiation treatments. --01/24-->completed cycle #3 (2) Pancytopenia Status: Acute Plan: --transfuse pRBC as needed to keep hgb>7 --transfuse platelets as needed to keep platelets>10 --Severe neutropenia: no fever. -->started on IV cefepime b/c of chills --Blood cultures show no growth --s/p Neulasta so no benefit of Neupogen (3) Syncope Status: Acute Plan: --receiving IVF-->on NS @70cc/hr, monitor electrolytes --secondary to acute anemia and intravascular volume loss. --s/p transfusion pRBC --CT brain negative --troponins negative --do not believe the syncope is related to any cardiac or neurologic abnormality. Assessment 71y/o male with history of stage III small-cell lung cancer who presented with an episode of syncope. --presented to the emergency department after he experienced an episode of syncope-->was sitting on the toilet when he felt lightheaded and he fell down. unresponsive for two to three minutes, but then he became awake and alert and responded to conversations. History of BPH status post TURP. History of carotid artery stenosis status post CEA. Peripheral artery disease status post multiple stents and Bypasses. Bilateral subclavian stenosis. Hypertension Paroxysmal a. fib status post ablation Plan 1. continue IVF 2. monitor CBC, CMP 3. transfuse as needed 4. continue Cefepime until counts recover Attending Statement The exam, history, and the medical decision-making described in the above note were completed with the assistance of the mid-level provider. I reviewed and agree with the findings presented. I attest that I had a [id number] encounter with the patient on the same day, and personally performed and documented my assessment and findings in the medical record. Feels more lethargic today. Light headed and dizzy when stands up Transfuse 1 unit of pRBC since symptomatic continue cefepime until ANC > 500. Blood cultures no growth no benefit of giving Neupogen since already received Neulasta check LFTs/bili in am. Check Mag and Phosph in am and replete as necessary check LDH and Haptoglobin d/w patient and his d/w rn time spent with patient 30 minutes Problem Qualifiers (1) Syncope: Qualified Code: R55 - Syncope, unspecified syncope type Shamika May Feb 01, 2017 13:04 Danilo Michelle MD Feb 01, 2017 22:13
--- NOTE | 2017-02-01 13:53 | HHI.FPPN ---
Subjective Remarks Overnight repeat Hgb was 7.1, down from 7.7 after 1 unit. Received transfusion of 2 more units PRBC, Hgb now 8.5. Tolerated transfusion well. Still feels weak but overall better than yesterday. Still somewhat lightheaded when he first stands up. No CP/SOB, abdominal pain. Swelling of left hand improved from yesterday. (Bandar Treadwell MD R1) Objective Vitals Vital Signs Date Time Temp Pulse Resp B/P Pulse Ox O2 Delivery O2 Flow Rate FiO2 02/01/17 08:07 97.2 73 16 113/57 95 02/01/17 08:03 71 02/01/17 04:00 98.2 75 16 111/56 94 02/01/17 00:53 96.7 75 17 107/53 96 02/01/17 00:00 97.9 75 16 104/55 95 01/31/17 21:04 82 18 102/51 96 01/31/17 20:00 96.8 80 17 111/56 93 01/31/17 16:00 99.7 85 18 98/50 95 01/31/17 14:50 95 I/O 01/31/17 01/31/17 01/31/17 02/01/17 02/01/17 02/01/17 07:00 15:00 23:00 07:00 15:00 23:00 Intake Total 480 ml 240 ml 540 ml Output Total 400 ml 400 ml 750 ml Balance 80 ml -160 ml -210 ml Intake Oral 480 ml 240 ml 240 ml Packed Cells 300 ml Output Urine Total 400 ml 400 ml 750 ml # Bowel Movements 1 (Bandar Treadwell MD R1) Result Diagram: 02/01/17 0430 02/01/17 0430 Imaging Last Impressions Head CT 01/31/17 0000 Signed Impressions: Service Date/Time: January 06:07 - CONCLUSION: 1. No acute intracranial abnormality. 2. 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 Thomas Díaz Jr., MD Hand X-Ray 01/31/17 0000 Signed Impressions: Service Date/Time: January 06:18 - CONCLUSION: 1. Dorsal soft tissue swelling. Thomas Díaz Jr., MD Chest X-Ray 01/31/17 0000 Signed Impressions: Service Date/Time: January 05:47 - CONCLUSION: No acute disease. Thomas Díaz Jr., MD Objective Remarks GEN: WDWN adult white male sitting up in chair in NAD SKIN: Edema of left hand dorsal aspect improved from previously, less purple discoloration. RESP: CTAB, no crackles or wheezes CV: NRRR, no murmur Extremity: Left hand as above. No other peripheral edema. No cyanosis or clubbing. Medications and IVs Current Medications Medications (Trade) Dose Ordered Sig/Arron Route Start Time Stop Time Status Last Admin (NS Flush) 2 ml UNSCH PRN IV FLUSH 01/31/17 08:15 (NS Flush) 2 ml BID IV FLUSH 01/31/17 09:00 (Zofran Inj) 4 mg Q6H PRN IVP 01/31/17 08:15 (Ambien) 5 mg HS PRN PO 01/31/17 08:15 (Tylenol) 650 mg Q6H PRN PO 01/31/17 08:15 (Percocet 5-325 Mg) 1 tab Q6H PRN PO 01/31/17 08:15 (Percocet 10-325 Mg) 1 tab Q6H PRN PO 01/31/17 08:15 (Morphine Inj) 4 mg Q3H PRN IV 01/31/17 08:15 (Lipitor) 40 mg HS PO 01/31/17 21:00 01/31/17 19:54 (Bumetanide) 1 mg DAILY PO 01/31/17 09:00 (Nitrostat Sl) 0.4 mg Q4H PRN SL 01/31/17 08:15 (Flomax) 0.8 mg HS PO 01/31/17 21:00 01/31/17 19:54 (Spiriva Inh) 18 mcg DAILY INH 01/31/17 10:00 02/01/17 08:09 (Synalar 0.01% Cream) 1 applic BID TOPICAL 01/31/17 10:00 (Betapace) 120 mg BID PO 01/31/17 10:00 02/01/17 08:10 (Colace) 100 mg DAILY PO 01/31/17 09:00 Miscellaneous 1 ea 1 ea UNSCH PRN OTHER 01/31/17 09:30 (NS 1000 ml Inj) 1,000 ml @ 70 mls/hr [id number] IV 01/31/17 17:00 02/01/17 08:10 (KCl) 20 meq DAILY PO 02/01/17 09:00 02/01/17 08:11 (Bandar Treadwell MD R1) A/P Assessment and Plan 71-year-old male with past medical history of stage III small cell lung cancer currently receiving chemotherapy, extensive vascular disease presenting with: ( Bandar Treadwell MD R1) Attending Attestation Patient seen, examined, and discussed with resident team. I agree with assessment and management as documented and discussed with me. Pt ambulated with 's assistance to void in restroom. He feels better, but still feels weak. Check PM CBC and transfuse if needed per hem recs. (Lia Gamez MD) Problem List: (1) Syncope Status: Acute Plan: By history unlikely to be cardiogenic, could be orthostatic given lightheadedness on attempting to stand, could be related solely to pancytopenia (see below). As mentioned, cardiogenic causes less likely given un-suggestive history, exam, and EKG with normal Echo < 1 year ago. Unlikely to be psychogenic. May be vasovagal given he was bearing down to pass BM when event occurred. Single troponin negative * Telemetry to monitor for arrhythmia; can be discontinued if no abnormalities at 24 hours after admission * Manage pancytopenia as below (2) Pancytopenia Status: Acute Plan: All cell lines depressed (WBC including neutrophils, Hgb/Hct, Plt). Likely this is due to cisplatin therapy Hgb 7.7 --> 7.1 --> 8.5 Plt 5 --> 18 --> 13 - Heme/onc consulted, appreciate recommendations - S/p 3 unit PRBC and 1 unit Plt - Added cefepime for antibiotic prophylaxis - Keep Hgb > 7, Plt > 10 - Monitor CBC twice daily - Had been receiving Neulasta outpatient, continue if recommended by Heme/onc - Neutropenic precautions (3) Traumatic hematoma of left wrist Status: Acute Plan: Due to fall, low platelets; XR negative for Fx * Hold antiplatelet therapy * Manage pancytopenia as noted (4) Lung cancer Status: Acute Plan: Currently managed with chemotherapy and radiation * Management per Heme/onc (5) Peripheral artery disease Status: Chronic Plan: Symptoms stable - Hold ASA/Plavix given active hematoma L hand - Continue home statin (6) COPD (chronic obstructive pulmonary disease) Status: Chronic Plan: Continue home tiotropium Albuterol PRN (7) Hypertension Status: Chronic Plan: Continue home sotalol (8) Atrial fibrillation, currently in sinus rhythm Status: Acute Plan: AFib unlikely to have contributed to syncope given NSR at time of admission - Telemetry as above - Continue home sotalol (9) Coronary artery disease Status: Acute Plan: Stable - Hold ASA/Plavix - Continue home statin (10) FEN/PPX Status: Acute Plan: Fluids: PO at this time Elecs: Monitor and replete as needed Diet: Regular basic DVT: Pharmacologic ppx contraindicated; SCDs sdw Dr. Gamez (Bandar Treadwell MD R1) Problem Qualifiers (1) Syncope: Qualified Code: R55 - Syncope, unspecified syncope type (2) Traumatic hematoma of left wrist: Qualified Code: S60.212A - Traumatic hematoma of left wrist, initial encounter (3) COPD (chronic obstructive pulmonary disease): Qualified Code: J44.9 - Chronic obstructive pulmonary disease, unspecified COPD type (4) Hypertension: Qualified Code: I10 - Essential hypertension (5) Coronary artery disease: Qualified Code: I25.118 - Coronary artery disease of [place] artery of [place] heart with stable angina pectoris Bandar Treadwell MD R1 Feb 01, 2017 13:53 Lia Gamez MD Feb 01, 2017 20:30
[2017-02-01 14:50] LABS: HEMATOCRIT 23.6 % (39.0-51.0); MEAN CELL VOLUME 82.7 FL (80.0-100.0); MEAN CORPUSCULAR HEMOGLOBIN 29.6 PG (27.0-34.0); MEAN CORPUSCULAR HGB CONC 35.8 % (32.0-36.0); RED BLOOD COUNT 2.86 MIL/MM3 (4.50-5.90); RED CELL DISTRIBUTION WIDTH 21.6 % (11.6-17.2); WHITE BLOOD COUNT 0.4 TH/MM3 (4.0-11.0)
[2017-02-01 15:32] LABS: BASOPHILS 1 % (0-2); EOSINOPHILS 1 % (0-4); POLYS (SEG NEUTROPHILS) 1 % (16-70); WBC DIFF SAMPLE 100
[2017-02-01 15:33] LABS: OVALOCYTES 1+ (NORMAL); PLATELET ESTIMATE SMEAR RARE (NORMAL)
[2017-02-01 15:34] LABS: SCAN/DIFF FINAL DIFF MANUAL
[2017-02-01 15:35] LABS: HEMO FLAGS AUTO DIFF
[2017-02-01 15:44] LABS: PLATELET COUNT 12 TH/MM3 (150-450)
[2017-02-01] MEDS: ATORVASTATIN 40 MG TAB PO SCH (20:15)
[2017-02-01] MEDS: TAMSULOSIN HCL 0.4 MG CAP PO SCH (20:16)
[2017-02-01] MEDS: ONDANSETRON HCL 4 MG/2 ML VIAL IVP PRN (22:18)
[2017-02-01] MEDS ORDERED: diphenhydrAMINE HCL 25 MG CAP PO ONE (23:45)
[2017-02-01] MEDS ORDERED: ACETAMINOPHEN 325 MG TAB PO ONE (23:45)
[2017-02-02] VITALS (13 sets, daily range): BP systolic 87–127; BP diastolic 46–60; PULSE 66–80; RESP 15–20; TEMP 96.7–99.2; O2SAT 91–97
[2017-02-02] MEDS: BUMETANIDE 1 MG TAB PO SCH (09:27)
[2017-02-02] MEDS: DOCUSATE SODIUM 100 MG CAP PO SCH (09:27)
[2017-02-02] MEDS: SOTALOL HCL 80 MG TAB PO SCH ×2 (09:27→21:00)
[2017-02-02] MEDS: CEFEPIME INJ 2,000 MG in SODIUM CHLORIDE 0.9% INJ 100 ML IV SCH ×2 (09:27→17:47)
[2017-02-02] MEDS: POTASSIUM CHLORIDE 10 MEQ CONTROLLED RELEASE TAB PO SCH (09:27)
[2017-02-02] MEDS: FLUOCINOLONE ACETONIDE 0.01% CR 15 GM TUBE TOPICAL SCH ×2 (09:28→20:10)
[2017-02-02] MEDS: TIOTROPIUM BROMIDE 18 MCG INH INH SCH (09:28)
[2017-02-02 09:30] LABS: HEMATOCRIT 26.5 % (39.0-51.0); MEAN CORPUSCULAR HEMOGLOBIN 29.7 PG (27.0-34.0); MEAN CORPUSCULAR HGB CONC 35.4 % (32.0-36.0); RED BLOOD COUNT 3.15 MIL/MM3 (4.50-5.90); RED CELL DISTRIBUTION WIDTH 20.7 % (11.6-17.2); WHITE BLOOD COUNT 0.5 TH/MM3 (4.0-11.0)
[2017-02-02] MEDS: SODIUM CHLORIDE 0.9% FLUSH 10 ML FLUSH IV FLUSH SCH ×2 (09:31→20:09)
[2017-02-02 09:40] LABS: PLATELET COUNT 11 TH/MM3 (150-450)
[2017-02-02 09:41] LABS: REVIEW FLAG FINAL
[2017-02-02 09:58] LABS: INDIRECT BILIRUBIN 3.5 MG/DL (0.0-0.8); MAGNESIUM 1.2 MG/DL (1.5-2.5); POTASSIUM 3.1 MEQ/L (3.5-5.1); TOTAL BILIRUBIN ADULT 3.8 MG/DL (0.2-1.0)
[2017-02-02] MEDS ORDERED: SODIUM CHLOR 0.9% 250 ML INJ 250 ML IV ONE (10:00)
--- NOTE | 2017-02-02 10:16 | PD.ONC.PN ---
Subjective Subjective Remarks Afebrile overnight. Pt sitting up in chair at bedside. He tells me he feels much better today. No nausea. No SOB. He is asking about his blood counts. Objective Data Date Time Temp Pulse Resp B/P Pulse Ox O2 Delivery O2 Flow Rate FiO2 02/02/17 07:50 96.7 73 20 127/60 94 02/02/17 05:00 107/49 96/52 101/55 02/02/17 04:11 97.1 66 17 107/49 91 02/02/17 04:00 96.9 67 15 109/51 94 02/02/17 00:27 98.2 74 18 108/50 95 02/02/17 00:05 97.5 72 16 99/55 97 02/02/17 00:00 97.5 72 16 99/55 97 02/01/17 20:01 80 02/01/17 20:00 97.0 80 17 118/55 96 02/01/17 16:00 96.8 76 18 110/57 100 02/01/17 12:00 96.7 82 18 102/55 100 Result Diagram: 02/02/1718 02/02/17617 Laboratory Results Laboratory Tests Test 02/01/17 02/01/17 02/02/17 14:20 22:15 06:18 White Blood Count 0.4 TH/MM3 0.5 TH/MM3 Red Blood Count 2.86 MIL/MM3 3.15 MIL/MM3 Hemoglobin 8.4 GM/DL 9.4 GM/DL Hematocrit 23.6 % 26.5 % Mean Corpuscular Volume 82.7 FL 84.0 FL Mean Corpuscular Hemoglobin 29.6 PG 29.7 PG Mean Corpuscular Hemoglobin 35.8 % 35.4 % Concent Red Cell Distribution Width 21.6 % 20.7 % Platelet Count 12 TH/MM3 11 TH/MM3 Mean Platelet Volume 8.5 FL 9.1 FL Neutrophils (%) (Auto) % Lymphocytes (%) (Auto) % Monocytes (%) (Auto) % Eosinophils (%) (Auto) % Basophils (%) (Auto) % Neutrophils # (Auto) TH/MM3 Lymphocytes # (Auto) TH/MM3 Monocytes # (Auto) TH/MM3 Eosinophils # (Auto) TH/MM3 Basophils # (Auto) TH/MM3 CBC Comment AUTO DIFF Differential Total Cells 100 Counted Neutrophils % (Manual) 1 % Lymphocytes % 94 % Monocytes % 3 % Eosinophils % 1 % Basophils % 1 % Neutrophils # (Manual) 0.0 TH/MM3 Differential Comment FINAL DIFF MANUAL Platelet Estimate RARE Ovalocytes 1+ Blood Type A POSITIVE Crossmatch Leukocyte-Reduced Red Blood Cells Blood Bank Comment Potassium Level 3.1 MEQ/L Phosphorus Level 3.3 MG/DL Magnesium Level 1.2 MG/DL Total Bilirubin 3.8 MG/DL Direct Bilirubin 0.3 MG/DL Indirect Bilirubin 3.5 MG/DL Aspartate Amino Transf 11 U/L (AST/SGOT) Alanine Aminotransferase 16 U/L (ALT/SGPT) Alkaline Phosphatase 56 U/L Lactate Dehydrogenase 175 U/L Total Protein 5.4 GM/DL Albumin 3.0 GM/DL Culture Results Microbiology Date/Time Procedure Status Source Growth 01/31/17 07:05 Aerobic Blood Culture - Preliminary Resulted Blood Peripheral NO GROWTH IN 1 DAY 01/31/17 07:05 Anaerobic Blood Culture - Preliminary Resulted Blood Peripheral NO GROWTH IN 1 DAY 01/31/17 07:10 Aerobic Blood Culture - Preliminary Resulted Blood Peripheral NO GROWTH IN 1 DAY 01/31/17 07:10 Anaerobic Blood Culture - Preliminary Resulted Blood Peripheral NO GROWTH IN 1 DAY Administered Medications Medications (Trade) Dose Ordered Sig/Arron Route PRN Reason Start Time Stop Time Status Last Admin Dose Admin Sodium Chloride (NS Flush) 2 ml BID IV FLUSH 01/31/17 09:00 02/02/17 09:31 Ondansetron HCl (Zofran Inj) 4 mg Q6H PRN IVP NAUSEA OR VOMITING 01/31/17 08:15 02/01/17 22:18 Oxycodone/ Acetaminophen (Percocet 5-325 Mg) 1 tab Q6H PRN PO PAIN SCALE 6 TO 8 01/31/17 08:15 02/01/17 20:20 Atorvastatin Calcium (Lipitor) 40 mg HS PO 01/31/17 21:00 02/01/17 20:15 Bumetanide (Bumetanide) 1 mg DAILY PO 01/31/17 09:00 02/02/17 09:27 Tamsulosin HCl (Flomax) 0.8 mg HS PO 01/31/17 21:00 02/01/17 20:16 Tiotropium [place] (Spiriva Inh) 18 mcg DAILY INH 01/31/17 10:00 02/02/17 09:28 Sotalol HCl (Betapace) 120 mg BID PO 01/31/17 10:00 02/02/17 09:27 Docusate Sodium 100 mg 100 mg DAILY PO 01/31/17 09:00 02/02/17 09:27 Sodium Chloride (NS 1000 ml Inj) 1,000 ml @ 70 mls/hr [id number] IV 01/31/17 17:00 02/01/17 19:29 Potassium Chloride 20 meq 20 meq DAILY PO 02/01/17 09:00 02/02/17 09:27 Cefepime HCl/ Sodium Chloride (Maxipime Inj/NS Inj) 100 ml @ 200 mls/hr Q8H IV 02/01/17 17:00 02/02/17 09:27 Objective Remarks GENERAL: Elderly male, sitting up in chair at bedside. SKIN: Warm and dry. HEAD: Normocephalic. EYES: No scleral icterus. No injection or drainage. NECK: Supple, trachea midline. CARDIOVASCULAR: Regular rate and rhythm. RESPIRATORY: Lungs clear posteriorly. GASTROINTESTINAL: Abdomen soft, non-tender, nondistended. EXTREMITIES: No cyanosis, or edema. NEUROLOGICAL: No obvious focal deficit. Awake, alert, and oriented x3. Assessment/Plan Problem List: (1) Lung cancer Status: Acute Plan: --further treatment will be outpatient -- currently getting concurrent chemotherapy (cisplatin and Etoposide) and radiation treatments. --01/24-->completed cycle #3 (2) Pancytopenia Status: Acute Plan: --transfuse pRBC as needed to keep hgb>7 --transfuse platelets as needed to keep platelets>10 --Severe neutropenia: no fever. -->started on IV cefepime b/c of chills --Blood cultures show no growth --s/p Neulasta so no benefit of Neupogen (3) Syncope Status: Acute Plan: --receiving IVF-->on NS @70cc/hr, monitor electrolytes --secondary to acute anemia and intravascular volume loss. --s/p transfusion pRBC --CT brain negative --troponins negative --do not believe the syncope is related to any cardiac or neurologic abnormality. Assessment 71y/o male with history of stage III small-cell lung cancer who presented with an episode of syncope. --presented to the emergency department after he experienced an episode of syncope-->was sitting on the toilet when he felt lightheaded and he fell down. unresponsive for two to three minutes, but then he became awake and alert and responded to conversations. History of BPH status post TURP. History of carotid artery stenosis status post CEA. Peripheral artery disease status post multiple stents and Bypasses. Bilateral subclavian stenosis. Hypertension Paroxysmal a. fib status post ablation Plan 1. Will transfuse 1 unit platelets today for count of 11K. 2. Replace electrolytes today 3. Continue IV Cefepime until ANC is greater than 500. 4. Supportive care. Attending Statement The exam, history, and the medical decision-making described in the above note were completed with the assistance of the mid-level provider. I reviewed and agree with the findings presented. I attest that I had a [id number] encounter with the patient on the same day, and personally performed and documented my assessment and findings in the medical record. Pt seen and examined. Pancytopenia after last chemo w/ cis/etoposide. Pt feeling better still neutropenic and thrombocytopenic. Anemia persist. Continue supportive transfusion. Monitor for fever. Problem Qualifiers (1) Syncope: Qualified Code: R55 - Syncope, unspecified syncope type Marielos Hull Feb 02, 2017 10:16 Angela Ren MD Feb 02, 2017 13:31
[2017-02-02] MEDS ORDERED: POTASSIUM CHLOR 40 MEQ PREMIX 100 ML IV ONE (10:30)
[2017-02-02] MEDS ORDERED: MAGNESIUM OXIDE 400 MG TAB PO ONE (11:00)
--- NOTE | 2017-02-02 11:54 | HHI.FPPN ---
Subjective Remarks Patient is sitting up in chair. He looks a lot better than before. He reports feeling much better. No lightheadedness at this point. No further syncopal episodes. He reports no bowel movement but does not feel constipated. Hand swelling is improving on the left hand from his fall. No complaints about breathing, chest pain, abdominal pain, calf tenderness. (Adithya Reina MD R2) Objective Vitals Vital Signs Date Time Temp Pulse Resp B/P Pulse Ox O2 Delivery O2 Flow Rate FiO2 02/02/17 07:50 96.7 73 20 127/60 94 02/02/17 05:00 107/49 96/52 101/55 02/02/17 04:11 97.1 66 17 107/49 91 02/02/17 04:00 96.9 67 15 109/51 94 02/02/17 00:27 98.2 74 18 108/50 95 02/02/17 00:05 97.5 72 16 99/55 97 02/02/17 00:00 97.5 72 16 99/55 97 02/01/17 20:01 80 02/01/17 20:00 97.0 80 17 118/55 96 02/01/17 16:00 96.8 76 18 110/57 100 02/01/17 12:00 96.7 82 18 102/55 100 I/O 02/01/17 02/01/17 02/01/17 02/02/17 02/02/17 02/02/17 07:00 15:00 23:00 07:00 15:00 23:00 Intake Total 540 ml 600 ml 4020 ml 750 ml Output Total 750 ml 550 ml 850 ml Balance -210 ml 50 ml 3170 ml 750 ml Intake Oral 240 ml 600 ml 120 ml IV Total 3900 ml 750 ml Packed Cells 300 ml Output Urine Total 750 ml 550 ml 850 ml (Adithya Reina MD R2) Result Diagram: 02/02/1718 02/02/1718 Imaging Last [address] 01/31/17 0000 Signed Impressions: Service Date/Time: January 06:07 - CONCLUSION: 1. No acute intracranial abnormality. 2. 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 Thomas Díaz Jr., MD Hand X-Ray 01/31/17 0000 Signed Impressions: Service Date/Time: January 06:18 - CONCLUSION: 1. Dorsal soft tissue swelling. Thomas Díaz Jr., MD Chest X-Ray 01/31/17 0000 Signed Impressions: Service Date/Time: January 05:47 - CONCLUSION: No acute disease. Thomas Díaz Jr., MD Objective Remarks GEN: Sitting up in chair, appears comfortable SKIN: Edema of left hand dorsal aspect improved from previously HEENT: hair loss from chemo, no conjunctivitis, normal pharynx, no nasal discharge. Neck: No trauma RESP: CTAB, no crackles or wheezes CV: NRRR, no murmur Extremity: Left hand as above. No other peripheral edema. No cyanosis or clubbing. (Adithya Reina MD R2) A/P Assessment and Plan 71-year-old male with past medical history of stage III small cell lung cancer currently receiving chemotherapy, presented to emergency department after syncope, found to have severe pancytopenia Discharge Planning Pending improvement in blood counts (Adithya Reina MD R2) Attending Attestation Patient seen and examined, discussed with resident team. I agree with assessment and management as documented and discussed with me. Pt reports he is feeling stronger. He is able to ambulate to restroom without any lightheadedness/imbalance. (Lia Gamez MD) Problem List: (1) Pancytopenia Status: Acute Plan: On chemotherapy and presenting with severe pancytopenia with severe neutropenia. - Neutropenic precautions. - Cefepime for prophylactic management, also had some chills but no fevers or other evidence of infection. - Received 4 units PRBC - Received 1 unit platelets, receiving another today - Threshold per oncology: keep hemoglobin above 7, platelets above 10 - Watch for active bleeding, none currently - Heme-onc is on board. (2) Lung cancer Status: Acute Plan: Currently managed with chemotherapy and radiation - Management per Heme/onc as an outpatient (3) Traumatic hematoma of left wrist Status: Acute Plan: Improving, no acute fracture on x-ray (4) Peripheral artery disease Status: Chronic Plan: Symptoms stable - Hold ASA/Plavix given active hematoma L hand and low platelets and hgb - Continue home statin (5) COPD (chronic obstructive pulmonary disease) Status: Chronic Plan: Continue home tiotropium Albuterol PRN (6) Hypertension Status: Chronic Plan: Continue home sotalol (7) Atrial fibrillation, currently in sinus rhythm Status: Chronic Plan: History of atrial fibrillation - Continue home sotalol (8) Coronary artery disease Status: Chronic Plan: Stable - Hold ASA/Plavix for low platelets/hemoglobin and hematoma of wrist - Continue home statin (9) FEN/PPX Status: Acute Plan: Fluids: PO at this time Elecs: Replacing potassium and magnesium Diet: Regular basic DVT: Pharmacologic ppx contraindicated; SCDs dw Dr. Gamez (Adithya Reina MD R2) Problem Qualifiers (1) Traumatic hematoma of left wrist: Qualified Code: S60.212A - Traumatic hematoma of left wrist, initial encounter (2) COPD (chronic obstructive pulmonary disease): Qualified Code: J44.9 - Chronic obstructive pulmonary disease, unspecified COPD type (3) Hypertension: Qualified Code: I10 - Essential hypertension (4) Coronary artery disease: Qualified Code: I25.118 - Coronary artery disease of [place] artery of [place] heart with stable angina pectoris Adithya Reina MD R2 Feb 02, 2017 11:54 Lia Gamez MD Feb 02, 2017 19:28
[2017-02-02] MEDS ORDERED: MAGNESIUM SULFATE 1 GM PREMIX 100 ML IV ONE (13:00)
[2017-02-02] MEDS ORDERED: ACETAMINOPHEN 325 MG TAB PO PRN (15:00)
[2017-02-02] MEDS ORDERED: diphenhydrAMINE HCL 25 MG CAP PO PRN (15:00)
[2017-02-02] MEDS: TAMSULOSIN HCL 0.4 MG CAP PO SCH (20:08)
[2017-02-02] MEDS: ATORVASTATIN 40 MG TAB PO SCH (20:08)
[2017-02-02] MEDS: SODIUM CHLOR 0.9% 1000 ML INJ 1,000 ML IV SCH (20:09)
[2017-02-02 21:02] LABS: MEAN CORPUSCULAR HGB CONC 36.4 % (32.0-36.0)
[2017-02-03] VITALS: BP 115/54; PULSE 74; RESP 19; TEMP 96.7; O2SAT 95
[2017-02-03] MEDS: CEFEPIME INJ 2,000 MG in SODIUM CHLORIDE 0.9% INJ 100 ML IV SCH ×3 (00:29→16:36)
[2017-02-03] MEDS: ONDANSETRON HCL 4 MG/2 ML VIAL IVP PRN (00:33)
[2017-02-03 04:00] VITALS: BP 107/63; PULSE 76; RESP 19; TEMP 97.6; O2SAT 93
[2017-02-03 05:17] LABS: EOSINOPHIL % 3.5 % (0.0-4.0); LYMPHOCYTE # 0.4 TH/MM3 (1.0-4.8); MEAN CELL VOLUME 82.7 FL (80.0-100.0); MEAN CORPUSCULAR HEMOGLOBIN 30.1 PG (27.0-34.0); MONO % 3.3 % (0.0-8.0); NEUT % 3.2 % (16.0-70.0); PLATELET COUNT 29 TH/MM3 (150-450); RED BLOOD COUNT 2.91 MIL/MM3 (4.50-5.90); RED CELL DISTRIBUTION WIDTH 19.7 % (11.6-17.2); WHITE BLOOD COUNT 0.4 TH/MM3 (4.0-11.0)
[2017-02-03 05:18] LABS: BICARBONATE 27.5 MEQ/L (21.0-32.0); MAGNESIUM 1.1 MG/DL (1.5-2.5); POTASSIUM 3.3 MEQ/L (3.5-5.1)
[2017-02-03 05:48] LABS: HEMO FLAGS AUTO DIFF
[2017-02-03] MEDS ORDERED: POTASSIUM CHLORIDE 10 MEQ CONTROLLED RELEASE TAB PO ONE (06:15)
[2017-02-03] MEDS ORDERED: MAGNESIUM OXIDE 400 MG TAB PO ONE (06:15)
[2017-02-03] MEDS: NS + KCL 20 MEQ INJ 1,000 ML IV SCH ×2 (07:04→16:38)
[2017-02-03 07:50] VITALS: BP 101/58; PULSE 73; RESP 20; TEMP 97.7; O2SAT 97
[2017-02-03 08:56] LABS: BANDS 3 % (0-6); EOSINOPHILS 7 % (0-4); PLATELET ESTIMATE SMEAR LOW (NORMAL); PLATELET MORPHOLOGY NORMAL (NORMAL); POLYS (SEG NEUTROPHILS) 1 % (16-70); SCAN/DIFF FINAL DIFF MANUAL; WBC DIFF SAMPLE 100
[2017-02-03 08:57] LABS: OVALOCYTES 1+ (NORMAL); ROULEAUX PRESENT (NORMAL)
[2017-02-03] MEDS: FLUOCINOLONE ACETONIDE 0.01% CR 15 GM TUBE TOPICAL SCH ×2 (09:36→21:00)
[2017-02-03] MEDS: POTASSIUM CHLORIDE 10 MEQ CONTROLLED RELEASE TAB PO SCH (09:36)
[2017-02-03] MEDS: TIOTROPIUM BROMIDE 18 MCG INH INH SCH (09:36)
[2017-02-03] MEDS: SODIUM CHLORIDE 0.9% FLUSH 10 ML FLUSH IV FLUSH SCH ×2 (09:36→22:23)
[2017-02-03] MEDS: DOCUSATE SODIUM 100 MG CAP PO SCH (09:36)
[2017-02-03] MEDS: BUMETANIDE 1 MG TAB PO SCH (09:38)
--- NOTE | 2017-02-03 10:04 | HHI.FPPN ---
Subjective Remarks No acute events overnight. Required potassium and magnesium supplementation, had high urine output after Bumex. States he has not been taking bumex at home lately due to fluid losses from vomiting/diarrhea due to chemotherapy. No CP/ SOB. Some runny nose today. (Bandar Treadwell MD R1) Objective Vitals Vital Signs Date Time Temp Pulse Resp B/P Pulse Ox O2 Delivery O2 Flow Rate FiO2 02/03/17 07:50 97.7 73 20 101/58 97 02/03/17 04:00 97.6 76 19 107/63 93 02/03/17 00:00 96.7 74 19 115/54 95 02/02/17 20:29 98.6 80 16 103/55 96 02/02/17 17:05 99.2 80 20 95/47 96 Automatic Cuff 02/02/17 16:36 98.6 76 20 87/46 96 02/02/17 16:11 99.0 77 20 95/50 97 02/02/17 15:30 99.0 77 20 95/50 97 02/02/17 11:50 97.8 75 20 99/53 97 I/O 02/02/17 02/02/17 02/02/17 02/03/17 02/03/17 02/03/17 07:00 15:00 23:00 07:00 15:00 23:00 Intake Total 750 ml 1560 ml 489 ml 1200 ml Output Total 1150 ml 1900 ml Balance 750 ml 410 ml 489 ml -700 ml Intake Oral 910 ml 240 ml 240 ml IV Total 750 ml 650 ml 960 ml Platelets 249 ml Output Urine Total 1150 ml 1900 ml # Bowel Movements 0 (Bandar Treadwell MD R1) Result Diagram: 02/03/1740402/03/17404 Objective Remarks GEN: Sitting up in chair, appears comfortable SKIN: No rashes or lesions. Edema of left hand essentially resolved (trace). HEENT: hair loss from chemo, no conjunctivitis, normal pharynx, no nasal discharge. RESP: CTAB, no crackles or wheezes CV: NRRR, no murmur Extremity: Left hand as above. No other peripheral edema. No cyanosis or clubbing. (Bandar Treadwell MD R1) A/P Assessment and Plan 71-year-old male with past medical history of stage III small cell lung cancer currently receiving chemotherapy, presented to emergency department after syncope, found to have severe pancytopenia Discharge Planning Pending improvement in blood counts (Bandar Treadwell MD R1) Attending Attestation Patient seen and examined, discussed with Dr Treadwell. I agree with assessment and management as documented and discussed with me. Pt reports he is feeling better. Blood counts reviewed with him today. Pt with significant urination and electrolyte abnormalities - will stop bumex and monitor. Also with some hypotension; decrease sotalol dose. (Lia Gamez MD) Problem List: (1) Pancytopenia Status: Acute Plan: On chemotherapy and presenting with severe pancytopenia with severe neutropenia. - Oncology consulted, appreciate recommendations - Neutropenic precautions until ANC > 500 - Cefepime for prophylactic management due to subjective chills; afebrile. Continue until ANC > 500 - Keep hemoglobin above 7, platelets above 10 - Received 4 units PRBC - Received 1 unit platelets, receiving another today - Watch for active bleeding, none currently (2) Lung cancer Status: Acute Plan: Currently managed with chemotherapy and radiation - Management per Heme/onc as an outpatient (3) Traumatic hematoma of left wrist Status: Resolved Plan: Improving, no acute fracture on x-ray (4) Peripheral artery disease Status: Chronic Plan: Symptoms stable - Hold ASA/Plavix given low platelets and hgb - Continue home statin (5) COPD (chronic obstructive pulmonary disease) Status: Chronic Plan: Continue home tiotropium Albuterol PRN (6) Hypertension Status: Chronic Plan: BP running 120s/50s-60s - Decrease sotalol to 80 mg PO BID (7) Atrial fibrillation, currently in sinus rhythm Status: Chronic Plan: History of atrial fibrillation - Due to slightly low BPs and HR in good control, will decrease dose of sotalol to 80 mg BID (8) Coronary artery disease Status: Chronic Plan: Stable - Hold ASA/Plavix for low platelets/hemoglobin - Continue home statin (9) FEN/PPX Status: Acute Plan: Fluids: PO at this time Elecs: Replacing potassium and magnesium PRN Diet: Regular basic DVT: Pharmacologic ppx contraindicated; SCDs dw Dr. Gamez (Bandar Treadwell MD R1) Problem Qualifiers (1) Traumatic hematoma of left wrist: Qualified Code: S60.212A - Traumatic hematoma of left wrist, initial encounter (2) COPD (chronic obstructive pulmonary disease): Qualified Code: J44.9 - Chronic obstructive pulmonary disease, unspecified COPD type (3) Hypertension: Qualified Code: I10 - Essential hypertension (4) Coronary artery disease: Qualified Code: I25.118 - Coronary artery disease of [place] artery of [place] heart with stable angina pectoris Bandar Treadwell MD R1 Feb 03, 2017 10:04 Lia Gamez MD Feb 03, 2017 20:36
[2017-02-03 11:50] VITALS: BP 112/56; PULSE 76; RESP 20; TEMP 98.4; O2SAT 96
[2017-02-03 15:50] VITALS: BP 126/58; PULSE 76; RESP 20; TEMP 97.9; O2SAT 98
[2017-02-03 20:00] VITALS: BP 116/56; PULSE 69; RESP 17; TEMP 97.3; O2SAT 96
[2017-02-03 21:01] LABS: MEAN CORPUSCULAR HGB CONC 36.3 % (32.0-36.0)
[2017-02-03] MEDS: SOTALOL HCL 80 MG TAB PO SCH (22:22)
[2017-02-03] MEDS: TAMSULOSIN HCL 0.4 MG CAP PO SCH (22:22)
[2017-02-03] MEDS: ATORVASTATIN 40 MG TAB PO SCH (22:22)
[2017-02-04] VITALS: BP 130/62; PULSE 72; RESP 18; TEMP 97.5; O2SAT 99
[2017-02-04] MEDS: NS + KCL 20 MEQ INJ 1,000 ML IV SCH ×3 (00:54→22:15)
[2017-02-04] MEDS: CEFEPIME INJ 2,000 MG in SODIUM CHLORIDE 0.9% INJ 100 ML IV SCH ×3 (00:55→16:09)
[2017-02-04 03:48] VITALS: BP 100/55; PULSE 75; RESP 16; TEMP 97.8; O2SAT 97
[2017-02-04 04:06] LABS: MEAN CELL VOLUME 82.3 FL (80.0-100.0); MEAN CORPUSCULAR HEMOGLOBIN 29.9 PG (27.0-34.0); RED BLOOD COUNT 2.79 MIL/MM3 (4.50-5.90); RED CELL DISTRIBUTION WIDTH 19.1 % (11.6-17.2); WHITE BLOOD COUNT 0.4 TH/MM3 (4.0-11.0)
[2017-02-04 04:09] LABS: HEMO FLAGS AUTO DIFF
[2017-02-04 04:12] LABS: PLATELET COUNT 18 TH/MM3 (150-450)
[2017-02-04 04:18] LABS: MAGNESIUM 1.1 MG/DL (1.5-2.5); POTASSIUM 3.8 MEQ/L (3.5-5.1)
[2017-02-04 05:31] LABS: BANDS 1 % (0-6); PLATELET ESTIMATE SMEAR RARE (NORMAL); PLATELET MORPHOLOGY NORMAL (NORMAL); POLYS (SEG NEUTROPHILS) 3 % (16-70); SCAN/DIFF FINAL DIFF MANUAL; WBC DIFF SAMPLE 100
[2017-02-04 08:00] VITALS: BP 107/51; PULSE 73; RESP 16; TEMP 97.5; O2SAT 97
[2017-02-04] MEDS ORDERED: MAGNESIUM SULFATE 1 GM PREMIX 100 ML IV ONE (08:15)
--- NOTE | 2017-02-04 08:26 | HHI.FPPN ---
Subjective Remarks No acute events overnight. BP on low normal side. No lightheadedness, CP, SOB, N /V. Feeling much less weak than on admission. (Bandar Treadwell MD R1) Objective Vitals Vital Signs Date Time Temp Pulse Resp B/P Pulse Ox O2 Delivery O2 Flow Rate FiO2 02/04/17 03:48 97.8 75 16 100/55 97 02/04/17 00:00 97.5 72 18 130/62 99 02/03/17 20:00 97.3 69 17 116/56 96 02/03/17 15:50 97.9 76 20 126/58 98 02/03/17 11:50 98.4 76 20 112/56 96 I/O 02/03/17 02/03/17 02/03/17 02/04/17 02/04/17 02/04/17 07:00 15:00 23:00 07:00 15:00 23:00 Intake Total 1200 ml 2109 ml 705 ml 785 ml Output Total 1900 ml 900 ml 3200 ml Balance -700 ml 1209 ml 705 ml -2415 ml Intake Oral 240 ml 1320 ml 60 ml IV Total 960 ml 789 ml 705 ml 725 ml Output Urine Total 1900 ml 900 ml 3200 ml # Bowel Movements 0 0 (Bandar Treadwell MD R1) Result Diagram: 02/04/1734402/04/17344 Imaging Last Impressions Head CT 01/31/17 0000 Signed Impressions: Service Date/Time: January 06:07 - CONCLUSION: 1. No acute intracranial abnormality. 2. 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 Thomas Díaz Jr., MD Hand X-Ray 01/31/17 0000 Signed Impressions: Service Date/Time: January 06:18 - CONCLUSION: 1. Dorsal soft tissue swelling. Thomas Díaz Jr., MD Chest X-Ray 01/31/17 0000 Signed Impressions: Service Date/Time: January 05:47 - CONCLUSION: No acute disease. Thomas Díaz Jr., MD Objective Remarks GEN: Lying in bed, appears comfortable SKIN: No rashes or lesions. Edema of left hand essentially resolved (trace). HEENT: hair loss from chemo, no conjunctivitis, no nasal discharge. RESP: CTAB, no crackles or wheezes CV: NRRR, no murmur Extremity: Left hand as above. No other peripheral edema. No cyanosis or clubbing. Medications and IVs Current Medications Medications (Trade) Dose Ordered Sig/Arron Route Start Time Stop Time Status Last Admin (NS Flush) 2 ml UNSCH PRN IV FLUSH 01/31/17 08:15 02/04/17 03:40 (NS Flush) 2 ml BID IV FLUSH 01/31/17 09:00 02/03/17 22:23 (Zofran Inj) 4 mg Q6H PRN IVP 01/31/17 08:15 02/03/17 00:33 (Ambien) 5 mg HS PRN PO 01/31/17 08:15 02/03/17 22:25 (Tylenol) 650 mg Q6H PRN PO 01/31/17 08:15 (Percocet 5-325 Mg) 1 tab Q6H PRN PO 01/31/17 08:15 02/01/17 20:20 (Percocet 10-325 Mg) 1 tab Q6H PRN PO 01/31/17 08:15 (Morphine Inj) 4 mg Q3H PRN IV 01/31/17 08:15 (Lipitor) 40 mg HS PO 01/31/17 21:00 02/03/17 22:22 (Bumetanide) 1 mg DAILY PO 01/31/17 09:00 Hold 02/02/17 09:27 (Nitrostat Sl) 0.4 mg Q4H PRN SL 01/31/17 08:15 (Flomax) 0.8 mg HS PO 01/31/17 21:00 02/03/17 22:22 (Spiriva Inh) 18 mcg DAILY INH 01/31/17 10:00 02/03/17 09:36 (Synalar 0.01% Cream) 1 applic BID TOPICAL 01/31/17 10:00 (Colace) 100 mg DAILY PO 01/31/17 09:00 02/03/17 09:36 (Pill Splitter) 1 ea UNSCH PRN OTHER 01/31/17 09:30 Potassium Chloride 20 meq 20 meq DAILY PO 02/01/17 09:00 02/03/17 09:36 Cefepime HCl 2000 mg/Sodium Chloride 100 ml @ 200 mls/hr Q8H IV 02/01/17 17:00 02/04/17 00:55 (NS + KCl 20 Meq Inj) 1,000 ml @ 100 mls/hr Q10H IV 02/03/17 06:30 02/04/17 00:54 Sotalol HCl 80 mg 80 mg BID PO 02/03/17 21:00 02/03/17 22:22 (Magnesium Sulfate 1 Gm Premix) 100 ml @ 100 mls/hr ONCE ONCE IV 02/04/17 08:15 02/04/17 09:14 (Bandar Treadwell MD R1) A/P Assessment and Plan 71-year-old male with past medical history of stage III small cell lung cancer currently receiving chemotherapy, presented to emergency department after syncope, found to have severe pancytopenia Discharge Planning Pending improvement in blood counts (Bandar Treadwell MD R1) Attending Attestation Patient seen and examined, discussed with resident team. I agree with assessment and management as documented and discussed with me. No new concerns. Pt resting comfortably in bed. Monitor ANC. (Lia Gamez MD) Problem List: (1) Pancytopenia Status: Acute Plan: On chemotherapy and presenting with severe pancytopenia with severe neutropenia. - Oncology consulted, appreciate recommendations - Neutropenic precautions until ANC > 500 - Cefepime for prophylactic management due to subjective chills; afebrile. Continue until ANC > 500 - Keep hemoglobin above 7, platelets above 10 - Received 4 units PRBC - Received 1 unit platelets - Watch for active bleeding, none currently (2) Lung cancer Status: Chronic Plan: Currently managed with chemotherapy and radiation - Management per Heme/onc as an outpatient (3) Traumatic hematoma of left wrist Status: Resolved Plan: Improving, no acute fracture on x-ray (4) Peripheral artery disease Status: Chronic Plan: Symptoms stable - Hold ASA/Plavix given low platelets and hgb - Continue home statin (5) COPD (chronic obstructive pulmonary disease) Status: Chronic Plan: Continue home tiotropium Albuterol PRN (6) Hypertension Status: Chronic Plan: BP running 100-120s/50s-60s - Continue sotalol 80 mg PO BID (7) Atrial fibrillation, currently in sinus rhythm Status: Chronic Plan: History of atrial fibrillation - Due to slightly low BPs and HR in good control, will decrease dose of sotalol to 80 mg BID (8) Coronary artery disease Status: Chronic Plan: Stable - Hold ASA/Plavix for low platelets/hemoglobin - Continue home statin (9) FEN/PPX Status: Acute Plan: Fluids: PO at this time Elecs: Monitor and replete PRN Diet: Regular basic DVT: Pharmacologic ppx contraindicated; SCDs dw Dr. Gamez (Bandar Treadwell MD R1) Problem Qualifiers (1) Traumatic hematoma of left wrist: Qualified Code: S60.212A - Traumatic hematoma of left wrist, initial encounter (2) COPD (chronic obstructive pulmonary disease): Qualified Code: J44.9 - Chronic obstructive pulmonary disease, unspecified COPD type (3) Hypertension: Qualified Code: I10 - Essential hypertension (4) Coronary artery disease: Qualified Code: I25.118 - Coronary artery disease of [place] artery of [place] heart with stable angina pectoris Bandar Treadwell MD R1 Feb 04, 2017 08:26 Lia Gamez MD Feb 04, 2017 12:21
[2017-02-04] MEDS: TIOTROPIUM BROMIDE 18 MCG INH INH SCH (08:28)
[2017-02-04] MEDS: SOTALOL HCL 80 MG TAB PO SCH ×2 (08:29→22:15)
[2017-02-04] MEDS: SODIUM CHLORIDE 0.9% FLUSH 10 ML FLUSH IV FLUSH SCH ×2 (08:30→21:00)
[2017-02-04] MEDS: POTASSIUM CHLORIDE 10 MEQ CONTROLLED RELEASE TAB PO SCH (08:30)
[2017-02-04] MEDS: DOCUSATE SODIUM 100 MG CAP PO SCH (08:30)
[2017-02-04] MEDS: FLUOCINOLONE ACETONIDE 0.01% CR 15 GM TUBE TOPICAL SCH ×2 (08:30→21:00)
[2017-02-04] MEDS: MAGNESIUM SULFATE 1 GM PREMIX 100 ML IV SCH ×2 (09:45→11:22)
[2017-02-04] MEDS: LORATADINE 10 MG TAB PO SCH (09:45)
[2017-02-04 12:00] VITALS: BP 112/55; PULSE 76; RESP 18; TEMP 97; O2SAT 94
--- NOTE | 2017-02-04 15:14 | PD.ONC.PN ---
Subjective Subjective Remarks Afebrile overnight. patient resting comfortably. he is feeling stronger everyday. still has no taste when he eats food, no appetite, but has been trying to eat to regain his strength. Objective Data Date Time Temp Pulse Resp B/P Pulse Ox O2 Delivery O2 Flow Rate FiO2 02/04/17 12:00 97.0 76 18 112/55 94 02/04/17 08:00 97.5 73 16 107/51 97 Manual Cuff/Auscultation 02/04/17 03:48 97.8 75 16 100/55 97 02/04/17 00:00 97.5 72 18 130/62 99 02/03/17 20:00 97.3 69 17 116/56 96 02/03/17 15:50 97.9 76 20 126/58 98 Result Diagram: 02/04/17 0345 02/04/17 0345 Laboratory Results Laboratory Tests Test 02/04/17 03:45 White Blood Count 0.4 TH/MM3 Red Blood Count 2.79 MIL/MM3 Hemoglobin 8.3 GM/DL Hematocrit 23.0 % Mean Corpuscular Volume 82.3 FL Mean Corpuscular Hemoglobin 29.9 PG Mean Corpuscular Hemoglobin 36.3 % Concent Red Cell Distribution Width 19.1 % Platelet Count 18 TH/MM3 Mean Platelet Volume 8.1 FL Neutrophils (%) (Auto) % Lymphocytes (%) (Auto) % Monocytes (%) (Auto) % Eosinophils (%) (Auto) % Basophils (%) (Auto) % Neutrophils # (Auto) TH/MM3 Lymphocytes # (Auto) TH/MM3 Monocytes # (Auto) TH/MM3 Eosinophils # (Auto) TH/MM3 Basophils # (Auto) TH/MM3 CBC Comment AUTO DIFF Differential Total Cells 100 Counted Neutrophils % (Manual) 3 % Band Neutrophils % 1 % Lymphocytes % 94 % Monocytes % 2 % Neutrophils # (Manual) 0.0 TH/MM3 Differential Comment FINAL DIFF MANUAL Platelet Estimate RARE Platelet Morphology Comment NORMAL Potassium Level 3.8 MEQ/L Phosphorus Level 3.3 MG/DL Magnesium Level 1.1 MG/DL Administered Medications Medications (Trade) Dose Ordered Sig/Arron Route PRN Reason Start Time Stop Time Status Last Admin Dose Admin Sodium Chloride (NS Flush) 2 ml UNSCH PRN IV FLUSH FLUSH AFTER USING IV ACCESS 01/31/17 08:15 02/04/17 03:40 Sodium Chloride (NS Flush) 2 ml BID IV FLUSH 01/31/17 09:00 02/03/17 22:23 Ondansetron HCl (Zofran Inj) 4 mg Q6H PRN IVP NAUSEA OR VOMITING 01/31/17 08:15 02/03/17 00:33 Zolpidem Tartrate (Ambien) 5 mg HS PRN PO INSOMNIA 01/31/17 08:15 02/03/17 22:25 Oxycodone/ Acetaminophen (Percocet 5-325 Mg) 1 tab Q6H PRN PO PAIN SCALE 6 TO 8 01/31/17 08:15 02/01/17 20:20 Atorvastatin Calcium (Lipitor) 40 mg HS PO 01/31/17 21:00 02/03/17 22:22 Bumetanide (Bumetanide) 1 mg DAILY PO 01/31/17 09:00 Hold 02/02/17 09:27 Tamsulosin HCl (Flomax) 0.8 mg HS PO 01/31/17 21:00 02/03/17 22:22 Tiotropium [place] (Spiriva Inh) 18 mcg DAILY INH 01/31/17 10:00 02/04/17 08:28 Docusate Sodium (Colace) 100 mg DAILY PO 01/31/17 09:00 02/04/17 08:30 Potassium Chloride 20 meq 20 meq DAILY PO 02/01/17 09:00 02/04/17 08:30 Cefepime HCl 2000 mg/Sodium Chloride 100 ml @ 200 mls/hr Q8H IV 02/01/17 17:00 02/04/17 08:29 Potassium Chloride/Sodium Chloride (NS + KCl 20 Meq Inj) 1,000 ml @ 100 mls/hr Q10H IV 02/03/17 06:30 02/04/17 00:54 Sotalol HCl (Betapace) 80 mg BID PO 02/03/17 21:00 02/04/17 08:29 Loratadine (Claritin) 10 mg DAILY PO 02/04/17 09:00 02/04/17 09:45 Objective Remarks GENERAL: Elderly male, sitting up in chair next to bed in [facility]. SKIN: Warm and dry. HEAD: Normocephalic. EYES: No injection or drainage. NECK: Supple, trachea midline. CARDIOVASCULAR: Regular rate and rhythm RESPIRATORY: Breath sounds equal bilaterally. No accessory muscle use. GASTROINTESTINAL: Abdomen soft, non-tender, nondistended. EXTREMITIES: No cyanosis, or edema. NEUROLOGICAL: awake and alert, normal speech. moving all extremities. Assessment/Plan Problem List: (1) Lung cancer Status: Chronic Plan: --further treatment will be outpatient -- currently getting concurrent chemotherapy (cisplatin and Etoposide) and radiation treatments. --01/24-->completed cycle #3 (2) Pancytopenia Status: Acute Plan: --transfuse pRBC as needed to keep hgb>7 --transfuse platelets as needed to keep platelets>10 --Severe neutropenia: no fever. -->started on IV cefepime b/c of chills --Blood cultures show no growth --s/p Neulasta so no benefit of Neupogen (3) Syncope Status: Acute Plan: --receiving IVF, monitor electrolytes --secondary to acute anemia and intravascular volume loss. --s/p transfusion pRBC --CT brain negative --troponins negative --do not believe the syncope is related to any cardiac or neurologic abnormality. Assessment 71y/o male with history of stage III small-cell lung cancer who presented with an episode of syncope. --presented to the emergency department after he experienced an episode of syncope-->was sitting on the toilet when he felt lightheaded and he fell down. unresponsive for two to three minutes, but then he became awake and alert and responded to conversations. History of BPH status post TURP. History of carotid artery stenosis status post CEA. Peripheral artery disease status post multiple stents and Bypasses. Bilateral subclavian stenosis. Hypertension Paroxysmal a. fib status post ablation Plan 1. continue IV Cefepime until ANC>500 2. continue supportive care 3. transfuse as needed Attending Statement The exam, history, and the medical decision-making described in the above note were completed with the assistance of the mid-level provider. I reviewed and agree with the findings presented. I attest that I had a [id number] encounter with the patient on the same day, and personally performed and documented my assessment and findings in the medical record. Remains severely neutropenic no fevers. Blood cultures negative trial of Neupogen continue supportive care anemia studies Replace magnesium d/w rn Problem Qualifiers (1) Syncope: Qualified Code: R55 - Syncope, unspecified syncope type Shamika May Feb 04, 2017 15:14 Danilo Michelle MD Feb 04, 2017 23:44
[2017-02-04 16:00] VITALS: BP 116/53; PULSE 76; RESP 16; TEMP 96.8; O2SAT 98
[2017-02-04] MEDS: ONDANSETRON HCL 4 MG/2 ML VIAL IVP PRN (16:10)
[2017-02-04 20:00] VITALS: BP 124/58; PULSE 75; RESP 17; TEMP 96.3; O2SAT 96
[2017-02-04] MEDS: TAMSULOSIN HCL 0.4 MG CAP PO SCH (22:14)
[2017-02-04] MEDS: ATORVASTATIN 40 MG TAB PO SCH (22:14)
[2017-02-05] VITALS (9 sets, daily range): BP systolic 105–129; BP diastolic 50–61; PULSE 70–82; RESP 16–17; TEMP 96.4–99.1; O2SAT 94–98
[2017-02-05] MEDS: CEFEPIME INJ 2,000 MG in SODIUM CHLORIDE 0.9% INJ 100 ML IV SCH ×3 (01:18→16:39)
[2017-02-05 05:39] LABS: MEAN CELL VOLUME 83.7 FL (80.0-100.0); MEAN CORPUSCULAR HEMOGLOBIN 28.9 PG (27.0-34.0); MEAN CORPUSCULAR HGB CONC 34.5 % (32.0-36.0); RED BLOOD COUNT 2.74 MIL/MM3 (4.50-5.90); RED CELL DISTRIBUTION WIDTH 19.5 % (11.6-17.2); WHITE BLOOD COUNT 0.5 TH/MM3 (4.0-11.0)
[2017-02-05 06:06] LABS: MAGNESIUM 1.3 MG/DL (1.5-2.5); TRANSFERRIN IRON PROFILE 133 MG/DL (200-360)
[2017-02-05 06:09] LABS: HEMO FLAGS AUTO DIFF
[2017-02-05 06:11] LABS: PLATELET COUNT 12 TH/MM3 (150-450)
[2017-02-05 06:58] LABS: BANDS 8 % (0-6); EOSINOPHILS 4 % (0-4); OVALOCYTES 1+ (NORMAL); WBC DIFF SAMPLE 25
[2017-02-05 06:59] LABS: PLATELET ESTIMATE SMEAR RARE (NORMAL); PLATELET MORPHOLOGY NORMAL (NORMAL); SCAN/DIFF FINAL DIFF MANUAL
[2017-02-05] MEDS: MAGNESIUM SULFATE 1 GM PREMIX 100 ML IV SCH ×2 (07:18→08:27)
[2017-02-05] MEDS: MAGNESIUM OXIDE 400 MG TAB PO SCH ×2 (08:23→21:31)
[2017-02-05] MEDS: TIOTROPIUM BROMIDE 18 MCG INH INH SCH (08:23)
[2017-02-05] MEDS: DOCUSATE SODIUM 100 MG CAP PO SCH (08:23)
[2017-02-05] MEDS: POTASSIUM CHLORIDE 10 MEQ CONTROLLED RELEASE TAB PO SCH (08:23)
[2017-02-05] MEDS: SOTALOL HCL 80 MG TAB PO SCH ×2 (08:24→21:31)
[2017-02-05] MEDS: LORATADINE 10 MG TAB PO SCH (08:24)
[2017-02-05] MEDS: ONDANSETRON HCL 4 MG/2 ML VIAL IVP PRN ×2 (08:25→16:41)
[2017-02-05] MEDS: FLUOCINOLONE ACETONIDE 0.01% CR 15 GM TUBE TOPICAL SCH ×2 (08:26→21:00)
[2017-02-05] MEDS: SODIUM CHLORIDE 0.9% FLUSH 10 ML FLUSH IV FLUSH SCH ×2 (09:00→21:00)
[2017-02-05] MEDS: FILGRASTIM INJ 480 MCG in DEXTROSE 5% IN WATER INJ 48.4 ML IV SCH ×2 (13:38)
[2017-02-05] MEDS ORDERED: diphenhydrAMINE HCL 25 MG CAP PO PRN ×2 (14:00→21:45)
[2017-02-05] MEDS ORDERED: SODIUM CHLOR 0.9% 250 ML INJ 250 ML IV ONE (14:00)
[2017-02-05] MEDS ORDERED: ACETAMINOPHEN 325 MG TAB PO PRN (14:00)
--- NOTE | 2017-02-05 14:00 | PD.ONC.PN ---
Subjective Subjective Remarks Afebrile overnight. Patient frustrated that he is still in the hospital. He is frustrated about his counts not recovering yet. Objective Data Date Time Temp Pulse Resp B/P Pulse Ox O2 Delivery O2 Flow Rate FiO2 02/05/17 12:00 96.4 71 16 116/53 97 02/05/17 08:00 97.2 71 16 106/53 97 02/05/17 04:00 99.1 72 16 127/57 95 02/05/17 00:00 97.8 78 17 105/50 97 02/04/17 20:00 96.3 75 17 124/58 96 02/04/17 16:00 96.8 76 16 116/53 98 02/05/17 02/05/17 02/05/17 07:00 15:00 23:00 Intake Total 240 ml Output Total 3075 ml Balance -2835 ml Result Diagram: 02/05/17 0450 02/05/17 0450 Laboratory Results Laboratory Tests Test 02/05/17 04:50 White Blood Count 0.5 TH/MM3 Red Blood Count 2.74 MIL/MM3 Hemoglobin 7.9 GM/DL Hematocrit 23.0 % Mean Corpuscular Volume 83.7 FL Mean Corpuscular Hemoglobin 28.9 PG Mean Corpuscular Hemoglobin 34.5 % Concent Red Cell Distribution Width 19.5 % Platelet Count 12 TH/MM3 Mean Platelet Volume 9.0 FL Neutrophils (%) (Auto) % Lymphocytes (%) (Auto) % Monocytes (%) (Auto) % Eosinophils (%) (Auto) % Basophils (%) (Auto) % Neutrophils # (Auto) TH/MM3 Lymphocytes # (Auto) TH/MM3 Monocytes # (Auto) TH/MM3 Eosinophils # (Auto) TH/MM3 Basophils # (Auto) TH/MM3 CBC Comment AUTO DIFF Differential Total Cells 25 Counted Band Neutrophils % 8 % Lymphocytes % 88 % Eosinophils % 4 % Neutrophils # (Manual) 0.0 TH/MM3 Differential Comment FINAL DIFF MANUAL Platelet Estimate RARE Platelet Morphology Comment NORMAL Ovalocytes 1+ Potassium Level 4.0 MEQ/L Phosphorus Level 3.4 MG/DL Magnesium Level 1.3 MG/DL Iron Level 176 MCG/DL Total Iron Binding Capacity 186 MCG/DL Percent Iron Saturation 94.5 % Transferrin 133 MG/DL Vitamin B12 Level 647 PG/ML Administered Medications Medications (Trade) Dose Ordered Sig/Arron Route PRN Reason Start Time Stop Time Status Last Admin Dose Admin Sodium Chloride (NS Flush) 2 ml UNSCH PRN IV FLUSH FLUSH AFTER USING IV ACCESS 01/31/17 08:15 02/04/17 03:40 Sodium Chloride (NS Flush) 2 ml BID IV FLUSH 01/31/17 09:00 02/03/17 22:23 Ondansetron HCl (Zofran Inj) 4 mg Q6H PRN IVP NAUSEA OR VOMITING 01/31/17 08:15 02/05/17 08:25 Zolpidem Tartrate (Ambien) 5 mg HS PRN PO INSOMNIA 01/31/17 08:15 02/03/17 22:25 Oxycodone/ Acetaminophen (Percocet 5-325 Mg) 1 tab Q6H PRN PO PAIN SCALE 6 TO 8 01/31/17 08:15 02/01/17 20:20 Atorvastatin Calcium (Lipitor) 40 mg HS PO 01/31/17 21:00 02/04/17 22:14 Bumetanide (Bumetanide) 1 mg DAILY PO 01/31/17 09:00 Hold 02/02/17 09:27 Tamsulosin HCl (Flomax) 0.8 mg HS PO 01/31/17 21:00 02/04/17 22:14 Tiotropium [place] (Spiriva Inh) 18 mcg DAILY INH 01/31/17 10:00 02/05/17 08:23 Docusate Sodium (Colace) 100 mg DAILY PO 01/31/17 09:00 02/05/17 08:23 Potassium Chloride 20 meq 20 meq DAILY PO 02/01/17 09:00 02/05/17 08:23 Cefepime HCl 2000 mg/Sodium Chloride 100 ml @ 200 mls/hr Q8H IV 02/01/17 17:00 02/05/17 08:24 Potassium Chloride/Sodium Chloride (NS + KCl 20 Meq Inj) 1,000 ml @ 100 mls/hr Q10H IV 02/03/17 06:30 02/04/17 22:15 Sotalol HCl (Betapace) 80 mg BID PO 02/03/17 21:00 02/05/17 08:24 Loratadine 10 mg 10 mg DAILY PO 02/04/17 09:00 02/05/17 08:24 Filgrastim/ Dextrose (Neupogen Inj/ D5W Inj) 50 ml @ 100 mls/hr DAILY@14 IV 02/05/17 14:00 02/05/17 13:38 Magnesium Oxide (Mag-Ox) 400 mg Q12HR PO 02/05/17 09:00 02/05/17 08:23 Objective Remarks GENERAL: Elderly male, sitting up in bed in nad. at bedside. SKIN: Warm and dry. HEAD: Normocephalic. EYES: No injection or drainage. NECK: Supple, trachea midline. CARDIOVASCULAR: Regular rate and rhythm RESPIRATORY: Breath sounds equal bilaterally. No accessory muscle use. GASTROINTESTINAL: Abdomen soft, non-tender, nondistended. EXTREMITIES: No cyanosis, or edema. NEUROLOGICAL: aox3. normal speech. moving all extremities. Assessment/Plan Problem List: (1) Lung cancer Status: Chronic Plan: --further treatment will be outpatient -- currently getting concurrent chemotherapy (cisplatin and Etoposide) and radiation treatments. --01/24-->completed cycle #3 (2) Pancytopenia Status: Acute Plan: --transfuse pRBC as needed to keep hgb>7 --transfuse platelets as needed to keep platelets>10 --Severe neutropenia: no fever. -->started on IV cefepime b/c of chills --Blood cultures show no growth --s/p Neulasta and started on Neupogen on 02/05/17 (3) Syncope Status: Acute Plan: --receiving IVF, monitor electrolytes --secondary to acute anemia and intravascular volume loss. --s/p transfusion pRBC --CT brain negative --troponins negative --do not believe the syncope is related to any cardiac or neurologic abnormality. Assessment 71y/o male with history of stage III small-cell lung cancer who presented with an episode of syncope. --presented to the emergency department after he experienced an episode of syncope-->was sitting on the toilet when he felt lightheaded and he fell down. unresponsive for two to three minutes, but then he became awake and alert and responded to conversations. History of BPH status post TURP. History of carotid artery stenosis status post CEA. Peripheral artery disease status post multiple stents and Bypasses. Bilateral subclavian stenosis. Hypertension Paroxysmal a. fib status post ablation Plan 1. continue IV Cefepime until ANC>500 2. continue supportive care 3. transfuse 1 unit platelets, 1 unit pRBC today Attending Statement The exam, history, and the medical decision-making described in the above note were completed with the assistance of the mid-level provider. I reviewed and agree with the findings presented. I attest that I had a [id number] encounter with the patient on the same day, and personally performed and documented my assessment and findings in the medical record. remains severely neutropenic. No fevers/no evidence of infection continue IV cefepime on daily Neupogen Transfuse 1 unit of platelets and 1 unit of pRBC Long discussion with patient. some frustration about long hospital stay but understands the situation. d/w rn Problem Qualifiers (1) Syncope: Qualified Code: R55 - Syncope, unspecified syncope type Shamika May Feb 05, 2017 14:00 Danilo Michelle MD Feb 05, 2017 22:34
--- NOTE | 2017-02-05 14:42 | HHI.FPPN ---
Subjective Remarks Sitting up in chair, no acute distress. Frustrated with having to stay in the hospital and with his low blood counts. No chest pain, no shortness of breath. Feeling fatigued this morning. Does not have the energy to walk around. No pain currently. No lightheadedness. (Adithya Reina MD R2) Objective Vitals Vital Signs Date Time Temp Pulse Resp B/P Pulse Ox O2 Delivery O2 Flow Rate FiO2 02/05/17 12:00 96.4 71 16 116/53 97 02/05/17 08:00 97.2 71 16 106/53 97 02/05/17 04:00 99.1 72 16 127/57 95 02/05/17 00:00 97.8 78 17 105/50 97 02/04/17 20:00 96.3 75 17 124/58 96 02/04/17 16:00 96.8 76 16 116/53 98 I/O 02/04/17 02/04/17 02/04/17 02/05/17 02/05/17 02/05/17 07:00 15:00 23:00 07:00 15:00 23:00 Intake Total 785 ml 720 ml 240 ml 780 ml Output Total 3200 ml 800 ml 400 ml 3075 ml Balance -2415 ml -80 ml -400 ml -2835 ml 780 ml Intake Oral 60 ml 720 ml 240 ml 780 ml IV Total 725 ml Output Urine Total 3200 ml 800 ml 400 ml 3075 ml # Voids 3 # Bowel Movements 0 0 0 (Adithya Reina MD R2) Result Diagram: 02/05/17 0450 02/05/17 0450 Objective Remarks GEN: Sitting up in chair, no distress. SKIN: No rashes or lesions. Edema of left hand minimal. HEENT: hair loss from chemo, no conjunctivitis, no nasal discharge. RESP: CTAB, no crackles or wheezes CV: NRRR, no murmur Extremity: Left hand as above. No other peripheral edema. No cyanosis or clubbing. (Adithya Reina MD R2) A/P Assessment and Plan 71-year-old male with past medical history of stage III small cell lung cancer currently receiving chemotherapy, presented to emergency department after syncope, found to have severe pancytopenia Discharge Planning Pending improvement in blood counts (Adithya Reina MD R2) Attending Attestation Patient seen, examined, and discussed with resident team. I agree with assessment and management as documented and discussed with me. Pt is frustrated at his low blood counts, but understands the importance of remaining in the hospital for safety. Monitor CBC; transfuse as indicated. (Lia Gamez MD) Problem List: (1) Pancytopenia Status: Acute Plan: On chemotherapy and presenting with severe pancytopenia with severe neutropenia. Likely myelosuppression from chemotherapy. ANC currently 40. - Oncology consulted, appreciate recommendations - Neutropenic precautions until ANC > 500 - Cefepime for prophylactic management due to subjective chills; afebrile. Continue until ANC > 500 - Keep hemoglobin above 7, platelets above 10. Will defer transfusion decisions to heme-oncology. - Received 4 units PRBC, receiving another unit today. - Received 2 units platelets, receiving another unit today. - Watch for active bleeding, none currently (2) Lung cancer Status: Chronic Plan: Currently managed with chemotherapy and radiation - Management per Heme/onc as an outpatient (3) Peripheral artery disease Status: Chronic Plan: Symptoms stable - Hold ASA/Plavix given low platelets and hgb - Continue home statin (4) COPD (chronic obstructive pulmonary disease) Status: Chronic Plan: Continue home tiotropium Albuterol PRN (5) Hypertension Status: Chronic Plan: BP normal currently - Continue sotalol 80 mg PO BID (6) Atrial fibrillation, currently in sinus rhythm Status: Chronic Plan: History of atrial fibrillation - Due to slightly low BPs and HR in good control, will decrease dose of sotalol to 80 mg BID (7) Coronary artery disease Status: Chronic Plan: Stable - Hold ASA/Plavix for low platelets/hemoglobin - Continue home statin (8) FEN/PPX Status: Acute Plan: Fluids: PO Elecs: Monitor and replete PRN Diet: Regular basic DVT: Pharmacologic ppx contraindicated; SCDs sdw Dr. Gamez, Dr. Treadwell (Adithya Reina MD R2) Problem Qualifiers (1) COPD (chronic obstructive pulmonary disease): Qualified Code: J44.9 - Chronic obstructive pulmonary disease, unspecified COPD type (2) Hypertension: Qualified Code: I10 - Essential hypertension (3) Coronary artery disease: Qualified Code: I25.118 - Coronary artery disease of [place] artery of [place] heart with stable angina pectoris Adithya Reina MD R2 Feb 05, 2017 14:42 Lia Gamez MD Feb 05, 2017 20:15
[2017-02-05 15:04] LABS: HEMATOCRIT 22.7 % (39.0-51.0); MEAN CELL VOLUME 83.9 FL (80.0-100.0); MEAN CORPUSCULAR HEMOGLOBIN 28.6 PG (27.0-34.0); MEAN CORPUSCULAR HGB CONC 34.1 % (32.0-36.0); RED CELL DISTRIBUTION WIDTH 19.2 % (11.6-17.2); WHITE BLOOD COUNT 0.5 TH/MM3 (4.0-11.0)
[2017-02-05 15:07] LABS: REVIEW FLAG FINAL
[2017-02-05 15:08] LABS: PLATELET COUNT 11 TH/MM3 (150-450)
[2017-02-05] MEDS: ACETAMINOPHEN 325 MG TAB PO PRN ×2 (16:42→21:34)
[2017-02-05] MEDS: NS + KCL 20 MEQ INJ 1,000 ML IV SCH ×2 (17:00→18:30)
[2017-02-05 21:01] LABS: MEAN CORPUSCULAR HGB CONC 36.2 % (32.0-36.0)
[2017-02-05] MEDS: ATORVASTATIN 40 MG TAB PO SCH (21:32)
[2017-02-05] MEDS: TAMSULOSIN HCL 0.4 MG CAP PO SCH (21:32)
[2017-02-06 00:45] VITALS: BP 120/56; PULSE 84; RESP 16; TEMP 97; O2SAT 95
[2017-02-06] MEDS: CEFEPIME INJ 2,000 MG in SODIUM CHLORIDE 0.9% INJ 100 ML IV SCH ×3 (01:47→17:12)
[2017-02-06 05:24] VITALS: BP 112/52; PULSE 74; RESP 16; TEMP 97; O2SAT 91
[2017-02-06 06:25] LABS: HEMATOCRIT 23.7 % (39.0-51.0); MEAN CELL VOLUME 82.2 FL (80.0-100.0); MEAN CORPUSCULAR HEMOGLOBIN 29.8 PG (27.0-34.0); PLATELET COUNT 26 TH/MM3 (150-450); RED BLOOD COUNT 2.88 MIL/MM3 (4.50-5.90); RED CELL DISTRIBUTION WIDTH 19.1 % (11.6-17.2); WHITE BLOOD COUNT 0.5 TH/MM3 (4.0-11.0)
[2017-02-06 06:29] LABS: HEMO FLAGS AUTO DIFF
[2017-02-06 06:41] LABS: MAGNESIUM 1.3 MG/DL (1.5-2.5); POTASSIUM 4.1 MEQ/L (3.5-5.1)
[2017-02-06 08:00] VITALS: BP 114/55; PULSE 83; RESP 18; TEMP 97.3; O2SAT 96
[2017-02-06 08:09] LABS: BANDS 16 % (0-6); EOSINOPHILS 3 % (0-4); NEUTROPHIL # MANUAL DIFF 0.1 TH/MM3 (1.8-7.7); OVALOCYTES 2+ (NORMAL); POLYS (SEG NEUTROPHILS) 5 % (16-70); PROMYELOCYTES 1 % (0-0); WBC DIFF SAMPLE 100
[2017-02-06 08:10] LABS: ACANTHOCYTES OCC (NORMAL); PLATELET ESTIMATE SMEAR LOW (NORMAL); PLATELET MORPHOLOGY NORMAL (NORMAL); SCAN/DIFF FINAL DIFF MANUAL; TEARDROP RBCS 1+ (NORMAL)
[2017-02-06] MEDS: FLUOCINOLONE ACETONIDE 0.01% CR 15 GM TUBE TOPICAL SCH ×2 (09:00→20:21)
[2017-02-06] MEDS: LORATADINE 10 MG TAB PO SCH (09:04)
[2017-02-06] MEDS: SOTALOL HCL 80 MG TAB PO SCH ×2 (09:04→20:20)
[2017-02-06] MEDS: DOCUSATE SODIUM 100 MG CAP PO SCH (09:04)
[2017-02-06] MEDS: MAGNESIUM OXIDE 400 MG TAB PO SCH ×2 (09:04→20:20)
[2017-02-06] MEDS: POTASSIUM CHLORIDE 10 MEQ CONTROLLED RELEASE TAB PO SCH (09:04)
[2017-02-06] MEDS: NS + KCL 20 MEQ INJ 1,000 ML IV SCH ×3 (09:07→20:22)
[2017-02-06] MEDS: SODIUM CHLORIDE 0.9% FLUSH 10 ML FLUSH IV FLUSH SCH ×2 (09:07→20:20)
[2017-02-06] MEDS: TIOTROPIUM BROMIDE 18 MCG INH INH SCH (10:43)
--- NOTE | 2017-02-06 11:00 | HHI.FPPN ---
Subjective Remarks No acute events overnight. Feels a little less weak today. Didn't sleep well last night due to blood products arriving in middle of night. Otherwise doing well. No CP/SOB (Bandar Treadwell MD R1) Objective Vitals Vital Signs Date Time Temp Pulse Resp B/P Pulse Ox O2 Delivery O2 Flow Rate FiO2 02/06/17 05:24 97.0 74 16 112/52 91 02/06/17 00:45 97.0 84 16 120/56 95 02/05/17 22:25 97.2 70 16 105/52 94 02/05/17 22:10 96.4 82 16 114/54 94 02/05/17 17:35 98.5 71 121/59 96 02/05/17 17:18 97.5 73 16 112/53 95 02/05/17 16:00 96.7 74 16 129/61 98 02/05/17 12:00 96.4 71 16 116/53 97 I/O 02/05/17 02/05/17 02/05/17 02/06/17 02/06/17 02/06/17 07:00 15:00 23:00 07:00 15:00 23:00 Intake Total 240 ml 780 ml 400 ml 360 ml Output Total 3075 ml 2700 ml Balance -2835 ml 780 ml 400 ml -2340 ml Intake Oral 240 ml 780 ml 400 ml 360 ml Output Urine Total 3075 ml 2700 ml # Voids 3 1 # Bowel Movements 0 0 0 (Bandar Treadwell MD R1) Result Diagram: 02/06/17 0600 02/06/17 0600 Objective Remarks GEN: Sitting up in chair, no distress. SKIN: No rashes or lesions. Edema of left hand resolved. HEENT: hair loss from chemo, no conjunctivitis, no nasal discharge. RESP: CTAB, no crackles or wheezes CV: NRRR, no murmur Extremity: No peripheral cyanosis or edema. Moves all extremities without difficulty. (Bandar Treadwell MD R1) A/P Assessment and Plan 71-year-old male with past medical history of stage III small cell lung cancer currently receiving chemotherapy, presented to emergency department after syncope, found to have severe pancytopenia Discharge Planning Pending improvement in blood counts (Bandar Treadwell MD R1) Attending Attestation Patient seen and examined, discussed with resident team. I agree with assessment and management as documented and discussed with me. Pt without complaints. He is happy to hear that counts are a little better. Rhinorrhea has resolved. Continue current treatment. (Lia Gamez MD) Problem List: (1) Pancytopenia Status: Acute Plan: On chemotherapy and presenting with severe pancytopenia with severe neutropenia. Likely myelosuppression from chemotherapy. Overnight received 1 unit PRBC and Plt Plt 26 today AM ANC ~100 today AM - Oncology consulted, appreciate recommendations - Neutropenic precautions until ANC > 500 - Cefepime for prophylactic management due to subjective chills; afebrile. Continue until ANC > 500 - Keep hemoglobin above 7, platelets above 10. Will defer transfusion decisions to heme-oncology. - Watch for active bleeding, none currently (2) Lung cancer Status: Chronic Plan: Currently managed with chemotherapy and radiation - Management per Heme/onc as an outpatient (3) Peripheral artery disease Status: Chronic Plan: Symptoms stable - Hold ASA/Plavix given low platelets and hgb - Continue home statin (4) COPD (chronic obstructive pulmonary disease) Status: Chronic Plan: Continue home tiotropium Albuterol PRN (5) Hypertension Status: Chronic Plan: BP normal currently - Continue sotalol 80 mg PO BID (6) Atrial fibrillation, currently in sinus rhythm Status: Chronic Plan: History of atrial fibrillation - Due to slightly low BPs and HR in good control, will decrease dose of sotalol to 80 mg BID (7) Coronary artery disease Status: Chronic Plan: Stable - Hold ASA/Plavix for low platelets/hemoglobin - Continue home statin (8) FEN/PPX Status: Acute Plan: Fluids: PO Elecs: Repleting magnesium daily based on level (low at 1.3), continue to monitor Diet: Regular basic DVT: Pharmacologic ppx contraindicated; SCDs sdw Dr. Nuno Gamez (Bandar Treadwell MD R1) Problem Qualifiers (1) COPD (chronic obstructive pulmonary disease): Qualified Code: J44.9 - Chronic obstructive pulmonary disease, unspecified COPD type (2) Hypertension: Qualified Code: I10 - Essential hypertension (3) Coronary artery disease: Qualified Code: I25.118 - Coronary artery disease of [place] artery of [place] heart with stable angina pectoris Bandar Treadwell MD R1 Feb 06, 2017 11:00 Lia Gamez MD Feb 06, 2017 20:19
[2017-02-06] MEDS: MAGNESIUM SULFATE 1 GM PREMIX 100 ML IV SCH ×2 (11:23→12:54)
--- NOTE | 2017-02-06 11:31 | PD.ONC.PN ---
Subjective Subjective Remarks Afebrile overnight. Pt sitting up in chair looking out the window. He states he did not sleep too well last night. He is encouraged that his ANC is up today by 100. Objective Data Date Time Temp Pulse Resp B/P Pulse Ox O2 Delivery O2 Flow Rate FiO2 02/06/17 05:24 97.0 74 16 112/52 91 02/06/17 00:45 97.0 84 16 120/56 95 02/05/17 22:25 97.2 70 16 105/52 94 02/05/17 22:10 96.4 82 16 114/54 94 02/05/17 17:35 98.5 71 121/59 96 02/05/17 17:18 97.5 73 16 112/53 95 02/05/17 16:00 96.7 74 16 129/61 98 02/05/17 12:00 96.4 71 16 116/53 97 02/06/17 02/06/17 02/06/17 07:00 15:00 23:00 Intake Total 360 ml Output Total 2700 ml Balance -2340 ml Result Diagram: 02/06/17 0600 02/06/17 0600 Laboratory Results Laboratory Tests Test 02/05/17 02/06/17 14:40 06:00 White Blood Count 0.5 TH/MM3 0.5 TH/MM3 Red Blood Count 2.70 MIL/MM3 2.88 MIL/MM3 Hemoglobin 7.7 GM/DL 8.6 GM/DL Hematocrit 22.7 % 23.7 % Mean Corpuscular Volume 83.9 FL 82.2 FL Mean Corpuscular Hemoglobin 28.6 PG 29.8 PG Mean Corpuscular Hemoglobin 34.1 % 36.2 % Concent Red Cell Distribution Width 19.2 % 19.1 % Platelet Count 11 TH/MM3 26 TH/MM3 Mean Platelet Volume 8.4 FL 8.1 FL Blood Type A POSITIVE Antibody Screen NEGATIVE Crossmatch Leukocyte-Reduced Red Blood Cells Blood Bank Comment Neutrophils (%) (Auto) % Lymphocytes (%) (Auto) % Monocytes (%) (Auto) % Eosinophils (%) (Auto) % Basophils (%) (Auto) % Neutrophils # (Auto) TH/MM3 Lymphocytes # (Auto) TH/MM3 Monocytes # (Auto) TH/MM3 Eosinophils # (Auto) TH/MM3 Basophils # (Auto) TH/MM3 CBC Comment AUTO DIFF Differential Total Cells 100 Counted Neutrophils % (Manual) 5 % Band Neutrophils % 16 % Lymphocytes % 72 % Monocytes % 3 % Eosinophils % 3 % Neutrophils # (Manual) 0.1 TH/MM3 Promyelocytes 1 % Differential Comment FINAL DIFF MANUAL Platelet Estimate LOW Platelet Morphology Comment NORMAL Tear Drop Cells 1+ Ovalocytes 2+ Acanthocytes OCC Potassium Level 4.1 MEQ/L Phosphorus Level 3.3 MG/DL Magnesium Level 1.3 MG/DL Administered Medications Medications (Trade) Dose Ordered Sig/Arron Route PRN Reason Start Time Stop Time Status Last Admin Dose Admin Sodium Chloride (NS Flush) 2 ml UNSCH PRN IV FLUSH FLUSH AFTER USING IV ACCESS 01/31/17 08:15 02/04/17 03:40 Sodium Chloride (NS Flush) 2 ml BID IV FLUSH 01/31/17 09:00 02/06/17 09:07 Ondansetron HCl (Zofran Inj) 4 mg Q6H PRN IVP NAUSEA OR VOMITING 01/31/17 08:15 02/05/17 16:41 Zolpidem Tartrate (Ambien) 5 mg HS PRN PO INSOMNIA 01/31/17 08:15 02/03/17 22:25 Acetaminophen (Tylenol) 650 mg Q6H PRN PO PAIN SCALE 3 TO 5 01/31/17 08:15 02/05/17 21:34 Oxycodone/ Acetaminophen (Percocet 5-325 Mg) 1 tab Q6H PRN PO PAIN SCALE 6 TO 8 01/31/17 08:15 02/01/17 20:20 Atorvastatin Calcium (Lipitor) 40 mg HS PO 01/31/17 21:00 02/05/17 21:32 Bumetanide (Bumetanide) 1 mg DAILY PO 01/31/17 09:00 Hold 02/02/17 09:27 Tamsulosin HCl (Flomax) 0.8 mg HS PO 01/31/17 21:00 02/05/17 21:32 Tiotropium [place] (Spiriva Inh) 18 mcg DAILY INH 01/31/17 10:00 02/06/17 10:43 Docusate Sodium (Colace) 100 mg DAILY PO 01/31/17 09:00 02/06/17 09:04 Potassium Chloride 20 meq 20 meq DAILY PO 02/01/17 09:00 02/06/17 09:04 Cefepime HCl 2000 mg/Sodium Chloride 100 ml @ 200 mls/hr Q8H IV 02/01/17 17:00 02/06/17 09:03 Potassium Chloride/Sodium Chloride (NS + KCl 20 Meq Inj) 1,000 ml @ 100 mls/hr Q10H IV 02/03/17 06:30 02/06/17 09:07 Sotalol HCl (Betapace) 80 mg BID PO 02/03/17 21:00 02/06/17 09:04 Loratadine 10 mg 10 mg DAILY PO 02/04/17 09:00 02/06/17 09:04 Filgrastim/ Dextrose (Neupogen Inj/ D5W Inj) 50 ml @ 100 mls/hr DAILY@14 IV 02/05/17 14:00 02/05/17 13:38 Magnesium Oxide 400 mg 400 mg Q12HR PO 02/05/17 09:00 02/06/17 09:04 Magnesium Sulfate/ Dextrose (Magnesium Sulfate 1 Gm Premix) 100 ml @ 100 mls/hr Q1H IV 02/06/17 11:00 02/06/17 12:59 02/06/17 11:23 Objective Remarks GENERAL: Elderly male, sitting up in chair at bedside. SKIN: Warm and dry. HEAD: Normocephalic. EYES: No injection or drainage. NECK: Supple, trachea midline. CARDIOVASCULAR: Regular rate and rhythm RESPIRATORY: Breath sounds equal bilaterally. No accessory muscle use. GASTROINTESTINAL: Abdomen soft, non-tender, nondistended. EXTREMITIES: No cyanosis, or edema. NEUROLOGICAL: aox3. normal speech. moving all extremities. Assessment/Plan Problem List: (1) Lung cancer Status: Chronic Plan: --further treatment will be outpatient -- currently getting concurrent chemotherapy (cisplatin and Etoposide) and radiation treatments. --01/24-->completed cycle #3 (2) Pancytopenia Status: Acute Plan: --transfuse pRBC as needed to keep hgb>7 --transfuse platelets as needed to keep platelets>10 --Severe neutropenia: no fever. -->started on IV cefepime b/c of chills --Blood cultures show no growth --s/p Neulasta and started on Neupogen on 02/05/17 (3) Syncope Status: Acute Plan: --receiving IVF, monitor electrolytes --secondary to acute anemia and intravascular volume loss. --s/p transfusion pRBC --CT brain negative --troponins negative --do not believe the syncope is related to any cardiac or neurologic abnormality. Assessment 71y/o male with history of stage III small-cell lung cancer who presented with an episode of syncope. --presented to the emergency department after he experienced an episode of syncope-->was sitting on the toilet when he felt lightheaded and he fell down. unresponsive for two to three minutes, but then he became awake and alert and responded to conversations. History of BPH status post TURP. History of carotid artery stenosis status post CEA. Peripheral artery disease status post multiple stents and Bypasses. Bilateral subclavian stenosis. Hypertension Paroxysmal a. fib status post ablation Plan 1. No transfusion today 2. Continue Neupogen to improve counts. 3. Cefepime to continue until ANC >500. Attending Statement The exam, history, and the medical decision-making described in the above note were completed with the assistance of the mid-level provider. I reviewed and agree with the findings presented. I attest that I had a [id number] encounter with the patient on the same day, and personally performed and documented my assessment and findings in the medical record. Problem Qualifiers (1) Syncope: Qualified Code: R55 - Syncope, unspecified syncope type Marielos Hull Feb 06, 2017 11:31 Danilo Michelle MD Feb 06, 2017 20:33
[2017-02-06] MEDS ORDERED: MAGNESIUM HYDROXIDE SUSP 30 ML CUP PO PRN (11:45)
[2017-02-06 12:00] VITALS: BP 107/55; PULSE 77; RESP 18; TEMP 97.6; O2SAT 98
[2017-02-06] MEDS: FILGRASTIM INJ 480 MCG in DEXTROSE 5% IN WATER INJ 48.4 ML IV SCH ×2 (14:00)
[2017-02-06 16:00] VITALS: BP 111/57; PULSE 80; RESP 18; TEMP 97.8; O2SAT 98
[2017-02-06] MEDS: ATORVASTATIN 40 MG TAB PO SCH (20:20)
[2017-02-06] MEDS: TAMSULOSIN HCL 0.4 MG CAP PO SCH (20:20)
[2017-02-06 21:24] VITALS: BP 123/74; PULSE 82; RESP 16; TEMP 96.4; O2SAT 97
[2017-02-07 00:08] VITALS: BP 106/52; PULSE 73; RESP 16; TEMP 97.2; O2SAT 98
[2017-02-07] MEDS: CEFEPIME INJ 2,000 MG in SODIUM CHLORIDE 0.9% INJ 100 ML IV SCH ×3 (00:25→16:01)
[2017-02-07 05:41] VITALS: BP 116/57; PULSE 80; RESP 16; TEMP 99; O2SAT 95
[2017-02-07 06:43] LABS: HEMATOCRIT 23.6 % (39.0-51.0); MEAN CELL VOLUME 83.7 FL (80.0-100.0); MEAN CORPUSCULAR HGB CONC 35.8 % (32.0-36.0); RED BLOOD COUNT 2.83 MIL/MM3 (4.50-5.90); RED CELL DISTRIBUTION WIDTH 18.2 % (11.6-17.2); WHITE BLOOD COUNT 0.8 TH/MM3 (4.0-11.0)
[2017-02-07 06:54] LABS: HEMO FLAGS AUTO DIFF
[2017-02-07 06:55] LABS: PLATELET COUNT 18 TH/MM3 (150-450)
[2017-02-07 07:30] LABS: BICARBONATE 26.3 MEQ/L (21.0-32.0); MAGNESIUM 1.5 MG/DL (1.5-2.5); POTASSIUM 4.4 MEQ/L (3.5-5.1)
[2017-02-07 08:00] VITALS: BP 109/54; PULSE 74; RESP 18; TEMP 97.6; O2SAT 96
[2017-02-07 08:08] LABS: BANDS 12 % (0-6); BASOPHILS 2 % (0-2); EOSINOPHILS 1 % (0-4); NEUTROPHIL # MANUAL DIFF 0.3 TH/MM3 (1.8-7.7); POLYS (SEG NEUTROPHILS) 25 % (16-70); WBC DIFF SAMPLE 100
[2017-02-07] MEDS: POTASSIUM CHLORIDE 10 MEQ CONTROLLED RELEASE TAB PO SCH (08:08)
[2017-02-07] MEDS: DOCUSATE SODIUM 100 MG CAP PO SCH (08:08)
[2017-02-07] MEDS: MAGNESIUM OXIDE 400 MG TAB PO SCH ×2 (08:08→21:41)
[2017-02-07] MEDS: LORATADINE 10 MG TAB PO SCH (08:09)
[2017-02-07] MEDS: SOTALOL HCL 80 MG TAB PO SCH ×2 (08:10→21:39)
[2017-02-07 08:15] LABS: OVALOCYTES 1+ (NORMAL); PLATELET ESTIMATE SMEAR RARE (NORMAL); PLATELET MORPHOLOGY NORMAL (NORMAL); SCAN/DIFF FINAL DIFF MANUAL
[2017-02-07] MEDS: TIOTROPIUM BROMIDE 18 MCG INH INH SCH (08:17)
[2017-02-07] MEDS: SODIUM CHLORIDE 0.9% FLUSH 10 ML FLUSH IV FLUSH SCH ×2 (08:17→21:00)
--- NOTE | 2017-02-07 11:36 | HHI.FPPN ---
Subjective Remarks No acute events overnight. AFVSS. Feeling less weak than yesterday. No CP/SOB, abdominal pain, leg pain. Swelling in L hand resolved. (Bandar Treadwell MD R1) Objective Vitals Vital Signs Date Time Temp Pulse Resp B/P Pulse Ox O2 Delivery O2 Flow Rate FiO2 02/07/17 08:00 97.6 74 18 109/54 96 02/07/17 05:41 99.0 80 16 116/57 95 02/07/17 00:08 97.2 73 16 106/52 98 02/06/17 21:24 96.4 82 16 123/74 97 02/06/17 16:00 97.8 80 18 111/57 98 02/06/17 12:00 97.6 77 18 107/55 98 I/O 02/06/17 02/06/17 02/06/17 02/07/17 02/07/17 02/07/17 07:00 15:00 23:00 07:00 15:00 23:00 Intake Total 360 ml 600 ml 350 ml 360 ml Output Total 2700 ml 900 ml 200 ml 1800 ml Balance -2340 ml -300 ml 150 ml -1440 ml Intake Oral 360 ml 600 ml 350 ml 360 ml Output Urine Total 2700 ml 900 ml 200 ml 1800 ml # Bowel Movements 0 0 0 (Bandar Treawdell MD R1) Result Diagram: 02/07/1754302/07/17543 Objective Remarks GEN: Lying comfortably in bed, no distress. SKIN: No rashes or lesions. HEENT: hair loss from chemo, no conjunctivitis, no nasal discharge. RESP: CTAB, no crackles or wheezes CV: NRRR, no murmur Extremity: No peripheral cyanosis or edema. Moves all extremities without difficulty. (Bandar Treadwell MD R1) A/P Assessment and Plan 71-year-old male with past medical history of stage III small cell lung cancer currently receiving chemotherapy, presented to emergency department after syncope, found to have severe pancytopenia Discharge Planning Pending improvement in blood counts (Bandar Treadwell MD R1) Attending Attestation Patient seen and examined, discussed with resident team. I agree with assessment and management as documented and discussed with me. Pt seen with in room. No current complaints. Feels well. Appreciate Hem-Onc. ANC improved today. (Lia Gamez MD) Problem List: (1) Pancytopenia Status: Acute Plan: On chemotherapy and presenting with severe pancytopenia with severe neutropenia. Likely myelosuppression from chemotherapy Plt 18 today AM ANC 296 today AM - Oncology consulted, appreciate recommendations - Neutropenic precautions until ANC > 500 - Cefepime for prophylactic management due to subjective chills; afebrile. Continue until ANC > 500 - Keep hemoglobin above 7, platelets above 10. Will defer transfusion decisions to heme-oncology. - Watch for active bleeding, none currently (2) Lung cancer Status: Chronic Plan: Currently managed with chemotherapy and radiation - Management per Heme/onc as an outpatient (3) Coronary artery disease Status: Chronic Plan: Stable - Hold ASA/Plavix for low platelets/hemoglobin - Continue home statin - Likely ASA/Plavix will need to be held while undergoing chemotherapy since Plt count could easily drop again; to be discussed further outpatient with PCP (4) Peripheral artery disease Status: Chronic Plan: Symptoms stable - Hold ASA/Plavix given low platelets and hgb - Continue home statin (5) COPD (chronic obstructive pulmonary disease) Status: Chronic Plan: Continue home tiotropium Albuterol PRN (6) Hypertension Status: Chronic Plan: BP normal currently - Continue sotalol 80 mg PO BID (7) Atrial fibrillation, currently in sinus rhythm Status: Chronic Plan: History of atrial fibrillation - Due to slightly low BPs and HR in good control, will decrease dose of sotalol to 80 mg BID (8) FEN/PPX Status: Acute Plan: Fluids: PO Elecs: Monitor periodically and replete as needed Diet: Regular basic DVT: Pharmacologic ppx contraindicated; SCDs sdw Dr. Nuno Gamez (Bandar Treadwell MD R1) Problem Qualifiers (1) Coronary artery disease: Qualified Code: I25.118 - Coronary artery disease of [place] artery of [place] heart with stable angina pectoris (2) COPD (chronic obstructive pulmonary disease): Qualified Code: J44.9 - Chronic obstructive pulmonary disease, unspecified COPD type (3) Hypertension: Qualified Code: I10 - Essential hypertension Bandar Treadwell MD R1 Feb 07, 2017 11:36 Lia Gamez MD Feb 07, 2017 16:40
[2017-02-07 12:00] VITALS: BP 116/57; PULSE 78; RESP 20; TEMP 97.3; O2SAT 95
[2017-02-07] MEDS: FILGRASTIM INJ 480 MCG in DEXTROSE 5% IN WATER INJ 48.4 ML IV SCH ×2 (12:34)
[2017-02-07] MEDS: NS + KCL 20 MEQ INJ 1,000 ML IV SCH ×2 (12:34→20:30)
[2017-02-07] MEDS: FLUOCINOLONE ACETONIDE 0.01% CR 15 GM TUBE TOPICAL SCH ×2 (12:38→21:41)
[2017-02-07] MEDS ORDERED: DOCUSATE SODIUM 50 MG/SENNA 8.6 MG TAB PO PRN (15:30)
[2017-02-07 16:00] VITALS: BP 107/52; PULSE 77; RESP 18; TEMP 97.9; O2SAT 98
[2017-02-07] MEDS ORDERED: SENNOSIDES 8.6 MG TAB PO PRN (16:45)
[2017-02-07 20:00] VITALS: BP 111/52; PULSE 80; RESP 16; TEMP 98.9; O2SAT 96
[2017-02-07] MEDS: TAMSULOSIN HCL 0.4 MG CAP PO SCH (21:40)
[2017-02-07] MEDS: ATORVASTATIN 40 MG TAB PO SCH (21:41)
--- NOTE | 2017-02-07 22:24 | PD.ONC.PN ---
Subjective Subjective Remarks feels better today sitting up in chair. no fever no BM for several days no fever/cough/no dyspnea no bleeding d/w rn Objective Data Date Time Temp Pulse Resp B/P Pulse Ox O2 Delivery O2 Flow Rate FiO2 02/07/17 20:00 98.9 80 16 111/52 96 02/07/17 16:00 97.9 77 18 107/52 98 02/07/17 12:00 97.3 78 20 116/57 95 02/07/17 08:00 97.6 74 18 109/54 96 02/07/17 05:41 99.0 80 16 116/57 95 02/07/17 00:08 97.2 73 16 106/52 98 02/07/17 02/07/17 02/07/17 07:00 15:00 23:00 Intake Total 360 ml 960 ml Output Total 1800 ml 900 ml Balance -1440 ml 60 ml Result Diagram: 02/07/17 0544 02/07/17 0544 Laboratory Results Laboratory Tests Test 02/07/17 05:44 White Blood Count 0.8 TH/MM3 Red Blood Count 2.83 MIL/MM3 Hemoglobin 8.5 GM/DL Hematocrit 23.6 % Mean Corpuscular Volume 83.7 FL Mean Corpuscular Hemoglobin 30.0 PG Mean Corpuscular Hemoglobin 35.8 % Concent Red Cell Distribution Width 18.2 % Platelet Count 18 TH/MM3 Mean Platelet Volume 8.5 FL Neutrophils (%) (Auto) % Lymphocytes (%) (Auto) % Monocytes (%) (Auto) % Eosinophils (%) (Auto) % Basophils (%) (Auto) % Neutrophils # (Auto) TH/MM3 Lymphocytes # (Auto) TH/MM3 Monocytes # (Auto) TH/MM3 Eosinophils # (Auto) TH/MM3 Basophils # (Auto) TH/MM3 CBC Comment AUTO DIFF Differential Total Cells 100 Counted Neutrophils % (Manual) 25 % Band Neutrophils % 12 % Lymphocytes % 59 % Monocytes % 1 % Eosinophils % 1 % Basophils % 2 % Neutrophils # (Manual) 0.3 TH/MM3 Differential Comment FINAL DIFF MANUAL Platelet Estimate RARE Platelet Morphology Comment NORMAL Ovalocytes 1+ Sodium Level 140 MEQ/L Potassium Level 4.4 MEQ/L Chloride Level 106 MEQ/L Carbon Dioxide Level 26.3 MEQ/L Anion Gap 8 MEQ/L Blood Urea Nitrogen 13 MG/DL Creatinine 0.68 MG/DL Estimat Glomerular Filtration 115 ML/MIN Rate Random Glucose 102 MG/DL Calcium Level 8.7 MG/DL Magnesium Level 1.5 MG/DL Administered Medications Medications (Trade) Dose Ordered Sig/Arron Route PRN Reason Start Time Stop Time Status Last Admin Dose Admin Sodium Chloride (NS Flush) 2 ml UNSCH PRN IV FLUSH FLUSH AFTER USING IV ACCESS 01/31/17 08:15 02/04/17 03:40 Sodium Chloride (NS Flush) 2 ml BID IV FLUSH 01/31/17 09:00 02/06/17 09:07 Ondansetron HCl (Zofran Inj) 4 mg Q6H PRN IVP NAUSEA OR VOMITING 01/31/17 08:15 02/05/17 16:41 Zolpidem Tartrate (Ambien) 5 mg HS PRN PO INSOMNIA 01/31/17 08:15 02/03/17 22:25 Acetaminophen (Tylenol) 650 mg Q6H PRN PO PAIN SCALE 3 TO 5 01/31/17 08:15 02/05/17 21:34 Oxycodone/ Acetaminophen (Percocet 5-325 Mg) 1 tab Q6H PRN PO PAIN SCALE 6 TO 8 01/31/17 08:15 02/01/17 20:20 Atorvastatin Calcium (Lipitor) 40 mg HS PO 01/31/17 21:00 02/07/17 21:41 Bumetanide (Bumetanide) 1 mg DAILY PO 01/31/17 09:00 Hold 02/02/17 09:27 Tamsulosin HCl (Flomax) 0.8 mg HS PO 01/31/17 21:00 02/07/17 21:40 Tiotropium [place] (Spiriva Inh) 18 mcg DAILY INH 01/31/17 10:00 02/07/17 08:17 Docusate Sodium (Colace) 100 mg DAILY PO 01/31/17 09:00 02/07/17 08:08 Potassium Chloride 20 meq 20 meq DAILY PO 02/01/17 09:00 02/07/17 08:08 Cefepime HCl 2000 mg/Sodium Chloride 100 ml @ 200 mls/hr Q8H IV 02/01/17 17:00 02/07/17 16:01 Potassium Chloride/Sodium Chloride (NS + KCl 20 Meq Inj) 1,000 ml @ 100 mls/hr Q10H IV 02/03/17 06:30 02/07/17 20:30 Sotalol HCl (Betapace) 80 mg BID PO 02/03/17 21:00 02/07/17 21:39 Loratadine 10 mg 10 mg DAILY PO 02/04/17 09:00 02/07/17 08:09 Filgrastim/ Dextrose (Neupogen Inj/ D5W Inj) 50 ml @ 100 mls/hr DAILY@14 IV 02/05/17 14:00 02/07/17 12:34 Magnesium Oxide (Mag-Ox) 400 mg Q12HR PO 02/05/17 09:00 02/07/17 21:41 Objective Remarks GENERAL: nad NECK: Supple, trachea midline. No JVD or lymphadenopathy. LYMPHATIC: No adenopathy. CARDIOVASCULAR: Regular rate and rhythm without murmurs. RESPIRATORY: Breath sounds equal bilaterally. No accessory muscle use. GASTROINTESTINAL: Abdomen soft, non-tender, nondistended. EXTREMITIES: No cyanosis, or edema. Assessment/Plan Problem List: (1) Lung cancer Status: Chronic Plan: --further treatment will be outpatient -- currently getting concurrent chemotherapy (cisplatin and Etoposide) and radiation treatments. --01/24-->completed cycle #3 (2) Pancytopenia Status: Acute Plan: --transfuse pRBC as needed to keep hgb>7 --transfuse platelets as needed to keep platelets>10 --Severe neutropenia: no fever. -->started on IV cefepime b/c of chills --Blood cultures show no growth --s/p Neulasta and started on Neupogen on 02/05/17 (3) Syncope Status: Acute Plan: --receiving IVF, monitor electrolytes --secondary to acute anemia and intravascular volume loss. --s/p transfusion pRBC --CT brain negative --troponins negative --do not believe the syncope is related to any cardiac or neurologic abnormality. Assessment 71y/o male with history of stage III small-cell lung cancer who presented with an episode of syncope. --presented to the emergency department after he experienced an episode of syncope-->was sitting on the toilet when he felt lightheaded and he fell down. unresponsive for two to three minutes, but then he became awake and alert and responded to conversations. History of BPH status post TURP. History of carotid artery stenosis status post CEA. Peripheral artery disease status post multiple stents and Bypasses. Bilateral subclavian stenosis. Hypertension Paroxysmal a. fib status post ablation Plan - Slight improvement in Neutrophil count. Still with severe neutropenia - continue daily Neupogen and IV cefepime - No blood products today - continue supportive care. - Decrease appetite. trial of Megace - Laxatives for constipation Problem Qualifiers (1) Syncope: Qualified Code: R55 - Syncope, unspecified syncope type Danilo Michelle MD Feb 07, 2017 22:23
[2017-02-07] MEDS: MEGESTROL ACETATE SUSP 400 MG/10 ML CUP PO SCH (22:30)
[2017-02-08] VITALS (7 sets, daily range): BP systolic 74–125; BP diastolic 37–60; PULSE 75–82; RESP 16–18; TEMP 96.8–98.5; O2SAT 94–97
[2017-02-08] MEDS: CEFEPIME INJ 2,000 MG in SODIUM CHLORIDE 0.9% INJ 100 ML IV SCH ×3 (00:06→17:00)
[2017-02-08 05:37] LABS: AUTOMATED NEUTROPHIL # 0.6 TH/MM3 (1.8-7.7); BASOPHIL % 0.2 % (0.0-2.0); EOSINOPHIL % 0.3 % (0.0-4.0); HEMATOCRIT 23.5 % (39.0-51.0); LYMPH % 36.8 % (9.0-44.0); LYMPHOCYTE # 0.4 TH/MM3 (1.0-4.8); MONO % 9.5 % (0.0-8.0); NEUT % 53.2 % (16.0-70.0); RED BLOOD COUNT 2.83 MIL/MM3 (4.50-5.90); RED CELL DISTRIBUTION WIDTH 18.3 % (11.6-17.2); WHITE BLOOD COUNT 1.2 TH/MM3 (4.0-11.0)
[2017-02-08 05:46] LABS: HEMO FLAGS AUTO DIFF
[2017-02-08 05:49] LABS: PLATELET COUNT 13 TH/MM3 (150-450)
[2017-02-08] MEDS: NS + KCL 20 MEQ INJ 1,000 ML IV SCH (05:53)
[2017-02-08 07:10] LABS: BANDS 25 % (0-6); MYELOCYTES 2 % (0-0); NEUTROPHIL # MANUAL DIFF 0.7 TH/MM3 (1.8-7.7); POLYS (SEG NEUTROPHILS) 28 % (16-70); TOXIC GRANULATION 1+ (NORMAL); WBC DIFF SAMPLE 100
[2017-02-08 07:11] LABS: OVALOCYTES 1+ (NORMAL)
[2017-02-08 07:12] LABS: PLATELET ESTIMATE SMEAR RARE (NORMAL); PLATELET MORPHOLOGY NORMAL (NORMAL); SCAN/DIFF FINAL DIFF MANUAL
[2017-02-08] MEDS: SOTALOL HCL 80 MG TAB PO SCH ×2 (09:00→20:39)
[2017-02-08] MEDS: SODIUM CHLORIDE 0.9% FLUSH 10 ML FLUSH IV FLUSH SCH ×2 (09:08→20:40)
[2017-02-08] MEDS: TIOTROPIUM BROMIDE 18 MCG INH INH SCH (09:14)
[2017-02-08] MEDS: DOCUSATE SODIUM 100 MG CAP PO SCH (09:15)
[2017-02-08] MEDS: FLUOCINOLONE ACETONIDE 0.01% CR 15 GM TUBE TOPICAL SCH ×2 (09:15→20:45)
[2017-02-08] MEDS: POTASSIUM CHLORIDE 10 MEQ CONTROLLED RELEASE TAB PO SCH (09:15)
[2017-02-08] MEDS: LORATADINE 10 MG TAB PO SCH (09:15)
[2017-02-08] MEDS: MAGNESIUM OXIDE 400 MG TAB PO SCH ×2 (09:15→20:40)
[2017-02-08] MEDS: MEGESTROL ACETATE SUSP 400 MG/10 ML CUP PO SCH (09:15)
[2017-02-08] MEDS: MAGNESIUM HYDROXIDE SUSP 30 ML CUP PO SCH (09:15)
--- NOTE | 2017-02-08 10:43 | PD.ONC.PN ---
Subjective Subjective Remarks walking in the hallways no cough/congestion/fever feeling better today d/w rn Objective Data Date Time Temp Pulse Resp B/P Pulse Ox O2 Delivery O2 Flow Rate FiO2 02/08/17 09:00 97.5 80 16 98/54 95 02/08/17 06:22 98.5 76 16 98/52 94 02/08/17 00:09 98.5 76 16 118/55 97 02/07/17 20:00 98.9 80 16 111/52 96 02/07/17 16:00 97.9 77 18 107/52 98 02/07/17 12:00 97.3 78 20 116/57 95 02/08/17 02/08/17 02/08/17 07:00 15:00 23:00 Intake Total 360 ml Output Total 1800 ml Balance -1440 ml Result Diagram: 02/08/17 0352 02/07/17 0544 Laboratory Results Laboratory Tests Test 02/08/17 02/08/17 03:52 08:08 White Blood Count 1.2 TH/MM3 Red Blood Count 2.83 MIL/MM3 Hemoglobin 8.2 GM/DL Hematocrit 23.5 % Mean Corpuscular Volume 83.0 FL Mean Corpuscular Hemoglobin 29.0 PG Mean Corpuscular Hemoglobin 35.0 % Concent Red Cell Distribution Width 18.3 % Platelet Count 13 TH/MM3 Mean Platelet Volume 8.9 FL Neutrophils (%) (Auto) 53.2 % Lymphocytes (%) (Auto) 36.8 % Monocytes (%) (Auto) 9.5 % Eosinophils (%) (Auto) 0.3 % Basophils (%) (Auto) 0.2 % Neutrophils # (Auto) 0.6 TH/MM3 Lymphocytes # (Auto) 0.4 TH/MM3 Monocytes # (Auto) 0.1 TH/MM3 Eosinophils # (Auto) 0.0 TH/MM3 Basophils # (Auto) 0.0 TH/MM3 CBC Comment AUTO DIFF Differential Total Cells 100 Counted Neutrophils % (Manual) 28 % Band Neutrophils % 25 % Lymphocytes % 43 % Monocytes % 2 % Neutrophils # (Manual) 0.7 TH/MM3 Myelocytes 2 % Differential Comment FINAL DIFF MANUAL Atypical Lymphocytes % Toxic Granulation 1+ Platelet Estimate RARE Platelet Morphology Comment NORMAL Ovalocytes 1+ Blood Bank Comment Administered Medications Medications (Trade) Dose Ordered Sig/Arron Route PRN Reason Start Time Stop Time Status Last Admin Dose Admin Sodium Chloride (NS Flush) 2 ml UNSCH PRN IV FLUSH FLUSH AFTER USING IV ACCESS 01/31/17 08:15 02/04/17 03:40 Sodium Chloride (NS Flush) 2 ml BID IV FLUSH 01/31/17 09:00 02/06/17 09:07 Ondansetron HCl (Zofran Inj) 4 mg Q6H PRN IVP NAUSEA OR VOMITING 01/31/17 08:15 02/05/17 16:41 Zolpidem Tartrate (Ambien) 5 mg HS PRN PO INSOMNIA 01/31/17 08:15 02/03/17 22:25 Acetaminophen (Tylenol) 650 mg Q6H PRN PO PAIN SCALE 3 TO 5 01/31/17 08:15 02/05/17 21:34 Oxycodone/ Acetaminophen (Percocet 5-325 Mg) 1 tab Q6H PRN PO PAIN SCALE 6 TO 8 01/31/17 08:15 02/01/17 20:20 Atorvastatin Calcium (Lipitor) 40 mg HS PO 01/31/17 21:00 02/07/17 21:41 Bumetanide (Bumetanide) 1 mg DAILY PO 01/31/17 09:00 Hold 02/02/17 09:27 Tamsulosin HCl (Flomax) 0.8 mg HS PO 01/31/17 21:00 02/07/17 21:40 Tiotropium [place] (Spiriva Inh) 18 mcg DAILY INH 01/31/17 10:00 02/08/17 09:14 Docusate Sodium (Colace) 100 mg DAILY PO 01/31/17 09:00 02/08/17 09:15 Potassium Chloride 20 meq 20 meq DAILY PO 02/01/17 09:00 02/08/17 09:15 Cefepime HCl 2000 mg/Sodium Chloride 100 ml @ 200 mls/hr Q8H IV 02/01/17 17:00 02/08/17 09:03 Potassium Chloride/Sodium Chloride (NS + KCl 20 Meq Inj) 1,000 ml @ 100 mls/hr Q10H IV 02/03/17 06:30 02/08/17 05:53 Sotalol HCl (Betapace) 80 mg BID PO 02/03/17 21:00 02/07/17 21:39 Loratadine 10 mg 10 mg DAILY PO 02/04/17 09:00 02/08/17 09:15 Filgrastim/ Dextrose (Neupogen Inj/ D5W Inj) 50 ml @ 100 mls/hr DAILY@14 IV 02/05/17 14:00 02/07/17 12:34 Magnesium Oxide (Mag-Ox) 400 mg Q12HR PO 02/05/17 09:00 02/08/17 09:15 Magnesium Hydroxide (Milk Of [place]) 30 ml DAILY PO 02/08/17 09:00 02/08/17 09:15 Objective Remarks GENERAL: nad SKIN: Warm and dry. NECK: Supple, trachea midline. No JVD or lymphadenopathy. LYMPHATIC: No adenopathy. CARDIOVASCULAR: Regular rate and rhythm without murmurs. RESPIRATORY: Breath sounds equal bilaterally. No accessory muscle use. GASTROINTESTINAL: Abdomen soft, non-tender, nondistended. EXTREMITIES: No cyanosis, or edema. Assessment/Plan Problem List: (1) Lung cancer Status: Chronic Plan: --further treatment will be outpatient -- currently getting concurrent chemotherapy (cisplatin and Etoposide) and radiation treatments. --01/24-->completed cycle #3 (2) Pancytopenia Status: Acute Plan: --transfuse pRBC as needed to keep hgb>7 --transfuse platelets as needed to keep platelets>10 --Severe neutropenia: no fever. -->started on IV cefepime b/c of chills --Blood cultures show no growth --s/p Neulasta and started on Neupogen on 02/05/17 (3) Syncope Status: Acute Plan: --receiving IVF, monitor electrolytes --secondary to acute anemia and intravascular volume loss. --s/p transfusion pRBC --CT brain negative --troponins negative --do not believe the syncope is related to any cardiac or neurologic abnormality. Assessment 71y/o male with history of stage III small-cell lung cancer who presented with an episode of syncope. --presented to the emergency department after he experienced an episode of syncope-->was sitting on the toilet when he felt lightheaded and he fell down. unresponsive for two to three minutes, but then he became awake and alert and responded to conversations. History of BPH status post TURP. History of carotid artery stenosis status post CEA. Peripheral artery disease status post multiple stents and Bypasses. Bilateral subclavian stenosis. Hypertension Paroxysmal a. fib status post ablation Plan - Transfuse 1 unit of platelets --premedicate with Tylenol and Benadryl - WBC up which is encouraging., ANC still less than 500. - On IV cefepime. - encourage ambulation. - d/w rn Problem Qualifiers (1) Syncope: Qualified Code: R55 - Syncope, unspecified syncope type Danilo Michelle MD Feb 08, 2017 10:43
[2017-02-08] MEDS: ACETAMINOPHEN 325 MG TAB PO PRN (10:49)
[2017-02-08] MEDS: diphenhydrAMINE HCL 25 MG CAP PO PRN (10:49)
[2017-02-08] MEDS: FILGRASTIM INJ 480 MCG in DEXTROSE 5% IN WATER INJ 48.4 ML IV SCH ×2 (16:07)
--- NOTE | 2017-02-08 16:10 | HHI.FPPN ---
Subjective Remarks No acute events overnight. Sitting up in chair. No complaints this morning. Has good appetite, craving a salad. Does not feel lightheaded today. No chest pain or shortness of breath. No abdominal pain, nausea, or vomiting. (Adithya Reina MD R2) Objective Vitals Vital Signs Date Time Temp Pulse Resp B/P Pulse Ox O2 Delivery O2 Flow Rate FiO2 02/08/17 11:46 97.6 75 18 118/60 97 Automatic Cuff 02/08/17 10:51 97.9 80 16 92/54 96 74/37 Automatic Cuff 02/08/17 09:00 97.5 80 16 98/54 95 02/08/17 06:22 98.5 76 16 98/52 94 02/08/17 00:09 98.5 76 16 118/55 97 02/07/17 20:00 98.9 80 16 111/52 96 02/07/17 16:00 97.9 77 18 107/52 98 I/O 02/07/17 02/07/17 02/07/17 02/08/17 02/08/17 02/08/17 07:00 15:00 23:00 07:00 15:00 23:00 Intake Total 360 ml 960 ml 250 ml 360 ml Output Total 1800 ml 900 ml 900 ml 1800 ml Balance -1440 ml 60 ml -650 ml -1440 ml Intake Oral 360 ml 960 ml 250 ml 360 ml Output Urine Total 1800 ml 900 ml 900 ml 1800 ml # Bowel Movements 0 0 0 (Adithya Reina MD R2) Result Diagram: 02/08/17 0352 02/07/17 0544 Objective Remarks GEN: Lying comfortably in bed, no distress. SKIN: No rashes or lesions. HEENT: hair loss from chemo, no conjunctivitis, no nasal discharge. RESP: CTAB, no crackles or wheezes CV: NRRR, 2/6 systolic flow murmur Extremity: No peripheral cyanosis or edema. Moves all extremities without difficulty. (Adithya Reina MD R2) A/P Assessment and Plan 71-year-old male with past medical history of stage III small cell lung cancer currently receiving chemotherapy, presented to emergency department after syncope, found to have severe pancytopenia Discharge Planning Pending improvement in blood counts (Adithya Reina MD R2) Attending Attestation Patient seen, examined, and discussed with resident team. I agree with assessment and management as documented and discussed with me. Pt happy to hear that ANC has improved. Platelets 13. Await stabilization of platelets prior to discharge. (Lia Gamez MD) Problem List: (1) Pancytopenia Status: Acute Plan: On chemotherapy and presenting with severe pancytopenia with severe neutropenia. Likely myelosuppression from chemotherapy Plt 13 today AM ANC 636 today AM - Platelet transfusion today ordered by oncology - Oncology consulted, appreciate recommendations - Cefepime for prophylactic management due to subjective chills; afebrile. - Will defer transfusion decisions to heme-oncology. - Watch for active bleeding, none currently (2) Lung cancer Status: Chronic Plan: Currently managed with chemotherapy and radiation - Management per heme-oncology as an outpatient (3) Coronary artery disease Status: Chronic Plan: Stable - Hold ASA/Plavix for low platelets/hemoglobin - Continue home statin (4) Peripheral artery disease Status: Chronic Plan: Symptoms stable - Hold ASA/Plavix given low platelets and hgb - Continue home statin (5) COPD (chronic obstructive pulmonary disease) Status: Chronic Plan: Continue home tiotropium Albuterol PRN (6) Hypertension Status: Chronic Plan: BP normal currently - Continue sotalol 80 mg PO BID (7) Atrial fibrillation, currently in sinus rhythm Status: Chronic Plan: History of atrial fibrillation - Due to slightly low BPs and HR in good control, will decrease dose of sotalol to 80 mg BID (8) FEN/PPX Status: Acute Plan: Fluids: PO Elecs: Monitor periodically and replete as needed Diet: Regular basic DVT: Pharmacologic ppx contraindicated; SCDs sdw Dr. Gamez dw Dr. Treadwell (Adithya Reina MD R2) Problem Qualifiers (1) Coronary artery disease: Qualified Code: I25.118 - Coronary artery disease of [place] artery of [place] heart with stable angina pectoris (2) COPD (chronic obstructive pulmonary disease): Qualified Code: J44.9 - Chronic obstructive pulmonary disease, unspecified COPD type (3) Hypertension: Qualified Code: I10 - Essential hypertension Adithya Reina MD R2 Feb 08, 2017 16:10 Lia Gamez MD Feb 08, 2017 21:24
[2017-02-08] MEDS: TAMSULOSIN HCL 0.4 MG CAP PO SCH (20:40)
[2017-02-08] MEDS: ATORVASTATIN 40 MG TAB PO SCH (20:40)
[2017-02-09] VITALS (8 sets, daily range): BP systolic 101–117; BP diastolic 46–57; PULSE 73–89; RESP 16–19; TEMP 96.9–98.9; O2SAT 95–98
[2017-02-09] MEDS: CEFEPIME INJ 2,000 MG in SODIUM CHLORIDE 0.9% INJ 100 ML IV SCH ×2 (00:53→09:38)
[2017-02-09 05:51] LABS: AUTOMATED NEUTROPHIL # 1.1 TH/MM3 (1.8-7.7); BASOPHIL % 0.3 % (0.0-2.0); EOSINOPHIL % 0.3 % (0.0-4.0); HEMATOCRIT 21.7 % (39.0-51.0); LYMPH % 25.5 % (9.0-44.0); LYMPHOCYTE # 0.4 TH/MM3 (1.0-4.8); MEAN CELL VOLUME 82.3 FL (80.0-100.0); MEAN CORPUSCULAR HEMOGLOBIN 29.4 PG (27.0-34.0); MEAN CORPUSCULAR HGB CONC 35.7 % (32.0-36.0); MONO % 9.2 % (0.0-8.0); NEUT % 64.7 % (16.0-70.0); PLATELET COUNT 22 TH/MM3 (150-450); RED BLOOD COUNT 2.63 MIL/MM3 (4.50-5.90); RED CELL DISTRIBUTION WIDTH 18.5 % (11.6-17.2); WHITE BLOOD COUNT 1.7 TH/MM3 (4.0-11.0)
[2017-02-09 05:56] LABS: HEMO FLAGS AUTO DIFF
[2017-02-09 06:08] LABS: BICARBONATE 25.2 MEQ/L (21.0-32.0); MAGNESIUM 1.4 MG/DL (1.5-2.5); POTASSIUM 4.4 MEQ/L (3.5-5.1)
[2017-02-09 07:28] LABS: BANDS 10 % (0-6); DOHLE BODIES PRESENT (NONE SEEN); NEUTROPHIL # MANUAL DIFF 1.2 TH/MM3 (1.8-7.7); PLATELET ESTIMATE SMEAR LOW (NORMAL); PLATELET MORPHOLOGY NORMAL (NORMAL); POLYS (SEG NEUTROPHILS) 58 % (16-70); SCAN/DIFF FINAL DIFF MANUAL; WBC DIFF SAMPLE 100
[2017-02-09 07:29] LABS: OVALOCYTES 1+ (NORMAL)
[2017-02-09] MEDS: MEGESTROL ACETATE SUSP 400 MG/10 ML CUP PO SCH (09:00)
[2017-02-09] MEDS: SOTALOL HCL 80 MG TAB PO SCH ×2 (09:00→21:38)
[2017-02-09] MEDS: MAGNESIUM HYDROXIDE SUSP 30 ML CUP PO SCH (09:37)
[2017-02-09] MEDS: MAGNESIUM OXIDE 400 MG TAB PO SCH ×2 (09:38→21:37)
[2017-02-09] MEDS: LORATADINE 10 MG TAB PO SCH (09:38)
[2017-02-09] MEDS: POTASSIUM CHLORIDE 10 MEQ CONTROLLED RELEASE TAB PO SCH (09:38)
[2017-02-09] MEDS: TIOTROPIUM BROMIDE 18 MCG INH INH SCH (09:38)
[2017-02-09] MEDS: DOCUSATE SODIUM 100 MG CAP PO SCH (09:38)
[2017-02-09] MEDS: SODIUM CHLORIDE 0.9% FLUSH 10 ML FLUSH IV FLUSH SCH ×2 (09:39→21:38)
[2017-02-09] MEDS: FLUOCINOLONE ACETONIDE 0.01% CR 15 GM TUBE TOPICAL SCH ×2 (09:39→21:38)
--- NOTE | 2017-02-09 09:47 | HHI.FPPN ---
Subjective Remarks No acute events overnight. Feeling less fatigue compared to yesterday. Disappointed his Plt counts continue to dip down but happy about the ANC. No CP/ SOB. Slight swelling of legs. (Bandar Treadwell MD R1) Objective Vitals Vital Signs Date Time Temp Pulse Resp B/P Pulse Ox O2 Delivery O2 Flow Rate FiO2 02/09/17 04:37 97.6 78 18 112/55 96 02/09/17 00:25 98.4 82 19 117/54 97 02/08/17 20:00 98.0 82 18 125/53 96 02/08/17 16:00 96.8 78 16 108/50 97 02/08/17 11:46 97.6 75 18 118/60 97 Automatic Cuff 02/08/17 10:51 97.9 80 16 92/54 96 74/37 Automatic Cuff I/O 02/08/17 02/08/17 02/08/17 02/09/17 02/09/17 02/09/17 07:00 15:00 23:00 07:00 15:00 23:00 Intake Total 360 ml 600 ml 550 ml Output Total 1800 ml 500 ml 3 ml 1260 ml Balance -1440 ml -500 ml 597 ml -710 ml Intake Oral 360 ml 600 ml 550 ml Output Urine Total 1800 ml 500 ml 3 ml 1260 ml # Voids 5 # Bowel Movements 0 3 0 (Bandar Treadwell MD R1) Result Diagram: 02/09/17 0515 02/09/17 0515 Objective Remarks GEN: Sitting up in chair, comfortable, NAD SKIN: No rashes or lesions. HEENT: hair loss from chemo, no conjunctivitis, no nasal discharge. RESP: CTAB, no crackles or wheezes CV: NRRR, 2/6 systolic flow murmur RUSB Extremity: Trace edema up to distal 2/3 of BLE. Moves all extremities without difficulty. (Bandar Treadwell MD R1) A/P Assessment and Plan 71-year-old male with past medical history of stage III small cell lung cancer currently receiving chemotherapy, presented to emergency department after syncope, found to have severe pancytopenia Discharge Planning Pending improvement in blood counts (Bandar Treadwell MD R1) Attending Attestation Patient seen, examined and discussed with resident team. I agree with assessment and management as documented and discussed with me. Pt without complaints. he is happy to hear that his ANC has improved. Appreciate hem-onc. Await stabilization of platelet count. (Lia Gamez MD) Problem List: (1) Pancytopenia Status: Acute Plan: On chemotherapy and presenting with severe pancytopenia with severe neutropenia. Likely myelosuppression from chemotherapy Plt 22 today AM ANC 1196 today AM - Oncology consulted, appreciate recommendations - Cefepime for prophylactic management due to subjective chills; afebrile, ANC > 1000, will defer to oncology on discontinuation - Transfusion criteria: Plt < 10, Hgb < 7.0 - D/C neutropenic precautions per oncology recs - Watch for active bleeding, none currently (2) Lung cancer Status: Chronic Plan: Currently managed with chemotherapy and radiation - Management per heme-oncology as an outpatient (3) Coronary artery disease Status: Chronic Plan: Stable - Hold ASA/Plavix for low platelets/hemoglobin - Continue home statin (4) Peripheral artery disease Status: Chronic Plan: Symptoms stable - Hold ASA/Plavix given low platelets and hgb - Continue home statin (5) COPD (chronic obstructive pulmonary disease) Status: Chronic Plan: Continue home tiotropium Albuterol PRN (6) Hypertension Status: Chronic Plan: BP normal currently - Continue sotalol 80 mg PO BID (7) Atrial fibrillation, currently in sinus rhythm Status: Chronic Plan: History of atrial fibrillation - Due to slightly low BPs and HR in good control, decreased dose of sotalol to 80 mg BID (8) FEN/PPX Status: Acute Plan: Fluids: PO Elecs: Monitor periodically and replete as needed Diet: Regular basic DVT: Pharmacologic ppx contraindicated; SCDs sdw Dr. Gamez (Bandar Treadwell MD R1) Problem Qualifiers (1) Coronary artery disease: Qualified Code: I25.118 - Coronary artery disease of [place] artery of [place] heart with stable angina pectoris (2) COPD (chronic obstructive pulmonary disease): Qualified Code: J44.9 - Chronic obstructive pulmonary disease, unspecified COPD type (3) Hypertension: Qualified Code: I10 - Essential hypertension Bandar Treadwell MD R1 Feb 09, 2017 09:47 Lia Gamez MD Feb 09, 2017 13:32
--- NOTE | 2017-02-09 10:26 | PD.ONC.PN ---
Objective Data Date Time Temp Pulse Resp B/P Pulse Ox O2 Delivery O2 Flow Rate FiO2 02/09/17 04:37 97.6 78 18 112/55 96 02/09/17 00:25 98.4 82 19 117/54 97 02/08/17 20:00 98.0 82 18 125/53 96 02/08/17 16:00 96.8 78 16 108/50 97 02/08/17 11:46 97.6 75 18 118/60 97 Automatic Cuff 02/08/17 10:51 97.9 80 16 92/54 96 74/37 Automatic Cuff Result Diagram: 02/09/17 0515 02/09/17 0515 Laboratory Results Laboratory Tests Test 02/08/17 02/09/17 16:22 05:15 Platelet Count 33 TH/MM3 22 TH/MM3 White Blood Count 1.7 TH/MM3 Red Blood Count 2.63 MIL/MM3 Hemoglobin 7.7 GM/DL Hematocrit 21.7 % Mean Corpuscular Volume 82.3 FL Mean Corpuscular Hemoglobin 29.4 PG Mean Corpuscular Hemoglobin 35.7 % Concent Red Cell Distribution Width 18.5 % Mean Platelet Volume 7.5 FL Neutrophils (%) (Auto) 64.7 % Lymphocytes (%) (Auto) 25.5 % Monocytes (%) (Auto) 9.2 % Eosinophils (%) (Auto) 0.3 % Basophils (%) (Auto) 0.3 % Neutrophils # (Auto) 1.1 TH/MM3 Lymphocytes # (Auto) 0.4 TH/MM3 Monocytes # (Auto) 0.2 TH/MM3 Eosinophils # (Auto) 0.0 TH/MM3 Basophils # (Auto) 0.0 TH/MM3 CBC Comment AUTO DIFF Differential Total Cells 100 Counted Neutrophils % (Manual) 58 % Band Neutrophils % 10 % Lymphocytes % 23 % Monocytes % 9 % Neutrophils # (Manual) 1.2 TH/MM3 Differential Comment FINAL DIFF MANUAL Dohle Bodies PRESENT Platelet Estimate LOW Platelet Morphology Comment NORMAL Ovalocytes 1+ Sodium Level 139 MEQ/L Potassium Level 4.4 MEQ/L Chloride Level 106 MEQ/L Carbon Dioxide Level 25.2 MEQ/L Anion Gap 8 MEQ/L Blood Urea Nitrogen 16 MG/DL Creatinine 0.63 MG/DL Estimat Glomerular Filtration 125 ML/MIN Rate Random Glucose 101 MG/DL Calcium Level 8.7 MG/DL Magnesium Level 1.4 MG/DL Administered Medications Medications (Trade) Dose Ordered Sig/Arron Route PRN Reason Start Time Stop Time Status Last Admin Dose Admin Sodium Chloride (NS Flush) 2 ml UNSCH PRN IV FLUSH FLUSH AFTER USING IV ACCESS 01/31/17 08:15 02/04/17 03:40 Sodium Chloride (NS Flush) 2 ml BID IV FLUSH 01/31/17 09:00 02/09/17 09:39 Ondansetron HCl (Zofran Inj) 4 mg Q6H PRN IVP NAUSEA OR VOMITING 01/31/17 08:15 02/05/17 16:41 Zolpidem Tartrate (Ambien) 5 mg HS PRN PO INSOMNIA 01/31/17 08:15 02/03/17 22:25 Acetaminophen (Tylenol) 650 mg Q6H PRN PO PAIN SCALE 3 TO 5 01/31/17 08:15 02/05/17 21:34 Oxycodone/ Acetaminophen (Percocet 5-325 Mg) 1 tab Q6H PRN PO PAIN SCALE 6 TO 8 01/31/17 08:15 02/01/17 20:20 Atorvastatin Calcium (Lipitor) 40 mg HS PO 01/31/17 21:00 02/08/17 20:40 Bumetanide (Bumetanide) 1 mg DAILY PO 01/31/17 09:00 Hold 02/02/17 09:27 Tamsulosin HCl (Flomax) 0.8 mg HS PO 01/31/17 21:00 02/08/17 20:40 Tiotropium [place] (Spiriva Inh) 18 mcg DAILY INH 01/31/17 10:00 02/09/17 09:38 Fluocinolone Acetonide (Synalar 0.01% Cream) 1 applic BID TOPICAL 01/31/17 10:00 02/09/17 09:39 Docusate Sodium (Colace) 100 mg DAILY PO 01/31/17 09:00 02/09/17 09:38 Potassium Chloride 20 meq 20 meq DAILY PO 02/01/17 09:00 02/09/17 09:38 Cefepime HCl/ Sodium Chloride (Maxipime Inj/NS Inj) 100 ml @ 200 mls/hr Q8H IV 02/01/17 17:00 02/09/17 09:38 Sotalol HCl (Betapace) 80 mg BID PO 02/03/17 21:00 02/08/17 20:39 Loratadine 10 mg 10 mg DAILY PO 02/04/17 09:00 02/09/17 09:38 Filgrastim/ Dextrose (Neupogen Inj/ D5W Inj) 50 ml @ 100 mls/hr DAILY@14 IV 02/05/17 14:00 02/08/17 16:07 Magnesium Oxide (Mag-Ox) 400 mg Q12HR PO 02/05/17 09:00 02/09/17 09:38 Magnesium Hydroxide (Milk Of Sybil Sutton) 30 ml DAILY PO 02/08/17 09:00 02/09/17 09:37 Acetaminophen (Tylenol) 650 mg UNSCH PRN PO PRIOR TO BLOOD PRODUCTS 02/08/17 09:15 02/08/17 10:49 Diphenhydramine HCl (Benadryl) 25 mg UNSCH PRN PO PRIOR TO BLOOD PRODUCTS 02/08/17 09:15 02/08/17 10:49 Objective Remarks GENERAL: Well-nourished, well-developed patient. SKIN: Warm and dry. HEAD: Normocephalic. EYES: No scleral icterus. No injection or drainage. NECK: Supple, trachea midline. No JVD or lymphadenopathy. LYMPHATIC: No adenopathy. CARDIOVASCULAR: Regular rate and rhythm without murmurs. RESPIRATORY: Breath sounds equal bilaterally. No accessory muscle use. GASTROINTESTINAL: Abdomen soft, non-tender, nondistended. EXTREMITIES: No cyanosis, or edema. MUSCULOSKELETAL: Adequate muscle tone. NEUROLOGICAL: No obvious focal deficit. Awake, alert, and oriented x3. PSYCHIATRIC: Appropriate mood and affect; insight and judgment normal. Assessment/Plan Problem List: (1) Lung cancer Status: Chronic Plan: --further treatment will be outpatient -- currently getting concurrent chemotherapy (cisplatin and Etoposide) and radiation treatments. --01/24-->completed cycle #3 (2) Pancytopenia Status: Acute Plan: --transfuse pRBC as needed to keep hgb>7 --transfuse platelets as needed to keep platelets>10 --Severe neutropenia: no fever. -->started on IV cefepime b/c of chills --Blood cultures show no growth --s/p Neulasta and started on Neupogen on 02/05/17 (3) Syncope Status: Acute Plan: --receiving IVF, monitor electrolytes --secondary to acute anemia and intravascular volume loss. --s/p transfusion pRBC --CT brain negative --troponins negative --do not believe the syncope is related to any cardiac or neurologic abnormality. Assessment 71y/o male with history of stage III small-cell lung cancer who presented with an episode of syncope. --presented to the emergency department after he experienced an episode of syncope-->was sitting on the toilet when he felt lightheaded and he fell down. unresponsive for two to three minutes, but then he became awake and alert and responded to conversations. History of BPH status post TURP. History of carotid artery stenosis status post CEA. Peripheral artery disease status post multiple stents and Bypasses. Bilateral subclavian stenosis. Hypertension Paroxysmal a. fib status post ablation Plan - WBC improving. - 1 unit of RBCs today - ANC > 500. Will stop IV cefepime. No evidence of infection Problem Qualifiers (1) Syncope: Qualified Code: R55 - Syncope, unspecified syncope type Danilo Michelle MD Feb 09, 2017 10:26
--- NOTE | 2017-02-09 13:04 | PD.ONC.PN ---
Subjective Subjective Remarks Afebrile overnight. Patient resting comfortably. Feels somewhat dizzy when getting up and walking around. No obvious bleeding. NO BM yet today. Objective Data Date Time Temp Pulse Resp B/P Pulse Ox O2 Delivery O2 Flow Rate FiO2 02/09/17 08:00 96.9 80 16 102/53 97 02/09/17 04:37 97.6 78 18 112/55 96 02/09/17 00:25 98.4 82 19 117/54 97 02/08/17 20:00 98.0 82 18 125/53 96 02/08/17 16:00 96.8 78 16 108/50 97 Result Diagram: 02/09/17 0515 02/09/1715 Laboratory Results Laboratory Tests Test 02/08/17 02/09/17 02/09/17 16:22 05:15 10:50 Platelet Count 33 TH/MM3 22 TH/MM3 White Blood Count 1.7 TH/MM3 Red Blood Count 2.63 MIL/MM3 Hemoglobin 7.7 GM/DL Hematocrit 21.7 % Mean Corpuscular Volume 82.3 FL Mean Corpuscular Hemoglobin 29.4 PG Mean Corpuscular Hemoglobin 35.7 % Concent Red Cell Distribution Width 18.5 % Mean Platelet Volume 7.5 FL Neutrophils (%) (Auto) 64.7 % Lymphocytes (%) (Auto) 25.5 % Monocytes (%) (Auto) 9.2 % Eosinophils (%) (Auto) 0.3 % Basophils (%) (Auto) 0.3 % Neutrophils # (Auto) 1.1 TH/MM3 Lymphocytes # (Auto) 0.4 TH/MM3 Monocytes # (Auto) 0.2 TH/MM3 Eosinophils # (Auto) 0.0 TH/MM3 Basophils # (Auto) 0.0 TH/MM3 CBC Comment AUTO DIFF Differential Total Cells 100 Counted Neutrophils % (Manual) 58 % Band Neutrophils % 10 % Lymphocytes % 23 % Monocytes % 9 % Neutrophils # (Manual) 1.2 TH/MM3 Differential Comment FINAL DIFF MANUAL Dohle Bodies PRESENT Platelet Estimate LOW Platelet Morphology Comment NORMAL Ovalocytes 1+ Sodium Level 139 MEQ/L Potassium Level 4.4 MEQ/L Chloride Level 106 MEQ/L Carbon Dioxide Level 25.2 MEQ/L Anion Gap 8 MEQ/L Blood Urea Nitrogen 16 MG/DL Creatinine 0.63 MG/DL Estimat Glomerular Filtration 125 ML/MIN Rate Random Glucose 101 MG/DL Calcium Level 8.7 MG/DL Magnesium Level 1.4 MG/DL Blood Type A POSITIVE Antibody Screen NEGATIVE Crossmatch Leukocyte-Reduced Red Blood Cells Blood Bank Comment Administered Medications Medications (Trade) Dose Ordered Sig/Arron Route PRN Reason Start Time Stop Time Status Last Admin Dose Admin Sodium Chloride (NS Flush) 2 ml UNSCH PRN IV FLUSH FLUSH AFTER USING IV ACCESS 01/31/17 08:15 02/04/17 03:40 Sodium Chloride (NS Flush) 2 ml BID IV FLUSH 01/31/17 09:00 02/09/17 09:39 Ondansetron HCl (Zofran Inj) 4 mg Q6H PRN IVP NAUSEA OR VOMITING 01/31/17 08:15 02/05/17 16:41 Zolpidem Tartrate (Ambien) 5 mg HS PRN PO INSOMNIA 01/31/17 08:15 02/03/17 22:25 Acetaminophen (Tylenol) 650 mg Q6H PRN PO PAIN SCALE 3 TO 5 01/31/17 08:15 02/05/17 21:34 Oxycodone/ Acetaminophen (Percocet 5-325 Mg) 1 tab Q6H PRN PO PAIN SCALE 6 TO 8 01/31/17 08:15 02/01/17 20:20 Atorvastatin Calcium (Lipitor) 40 mg HS PO 01/31/17 21:00 02/08/17 20:40 Bumetanide (Bumetanide) 1 mg DAILY PO 01/31/17 09:00 Hold 02/02/17 09:27 Tamsulosin HCl (Flomax) 0.8 mg HS PO 01/31/17 21:00 02/08/17 20:40 Tiotropium [place] (Spiriva Inh) 18 mcg DAILY INH 01/31/17 10:00 02/09/17 09:38 Fluocinolone Acetonide (Synalar 0.01% Cream) 1 applic BID TOPICAL 01/31/17 10:00 02/09/17 09:39 Docusate Sodium (Colace) 100 mg DAILY PO 01/31/17 09:00 02/09/17 09:38 Potassium Chloride (KCl) 20 meq DAILY PO 02/01/17 09:00 02/09/17 09:38 Sotalol HCl (Betapace) 80 mg BID PO 02/03/17 21:00 02/08/17 20:39 Loratadine 10 mg 10 mg DAILY PO 02/04/17 09:00 02/09/17 09:38 Filgrastim/ Dextrose (Neupogen Inj/ D5W Inj) 50 ml @ 100 mls/hr DAILY@14 IV 02/05/17 14:00 02/08/17 16:07 Magnesium Oxide (Mag-Ox) 400 mg Q12HR PO 02/05/17 09:00 02/09/17 09:38 Magnesium Hydroxide (Milk Of Sybil [place]) 30 ml DAILY PO 02/08/17 09:00 02/09/17 09:37 Acetaminophen (Tylenol) 650 mg UNSCH PRN PO PRIOR TO BLOOD PRODUCTS 02/08/17 09:15 02/08/17 10:49 Diphenhydramine HCl (Benadryl) 25 mg UNSCH PRN PO PRIOR TO BLOOD PRODUCTS 02/08/17 09:15 02/08/17 10:49 Objective Remarks GENERAL: Elderly male, lying in bed in nad. SKIN: Warm and dry. HEAD: Normocephalic. EYES: No injection or drainage. NECK: Supple, trachea midline. CARDIOVASCULAR: Regular rate and rhythm RESPIRATORY: Breath sounds equal bilaterally. No accessory muscle use. GASTROINTESTINAL: Abdomen soft, non-tender, nondistended. EXTREMITIES: No cyanosis, or edema. NEUROLOGICAL: awake and alert, normal speech. moving all extremities. Assessment/Plan Problem List: (1) Lung cancer Status: Chronic Plan: --further treatment will be outpatient -- currently getting concurrent chemotherapy (cisplatin and Etoposide) and radiation treatments. --01/24-->completed cycle #3 (2) Pancytopenia Status: Acute Plan: --transfuse pRBC as needed to keep hgb>7 --transfuse platelets as needed to keep platelets>10 --Blood cultures show no growth --s/p Neulasta and started on Neupogen on 02/05/17 (3) Syncope Status: Acute Plan: --receiving IVF, monitor electrolytes --secondary to acute anemia and intravascular volume loss. --s/p transfusion pRBC --CT brain negative --troponins negative --do not believe the syncope is related to any cardiac or neurologic abnormality. Assessment 71y/o male with history of stage III small-cell lung cancer who presented with an episode of syncope. --presented to the emergency department after he experienced an episode of syncope-->was sitting on the toilet when he felt lightheaded and he fell down. unresponsive for two to three minutes, but then he became awake and alert and responded to conversations. History of BPH status post TURP. History of carotid artery stenosis status post CEA. Peripheral artery disease status post multiple stents and Bypasses. Bilateral subclavian stenosis. Hypertension Paroxysmal a. fib status post ablation Plan 1. give 1 unit pRBC 2. d/c neutropenic precautions 3. monitor CBC Attending Statement The exam, history, and the medical decision-making described in the above note were completed with the assistance of the mid-level provider. I reviewed and agree with the findings presented. I attest that I had a [id number] encounter with the patient on the same day, and personally performed and documented my assessment and findings in the medical record. WBC continues to rise. ANC > 500 IV Cefepime stopped No fevers PRBC transfusion today Problem Qualifiers (1) Syncope: Qualified Code: R55 - Syncope, unspecified syncope type Shamika May Feb 09, 2017 13:04 Danilo Michelle MD Feb 09, 2017 23:48
[2017-02-09] MEDS: ACETAMINOPHEN 325 MG TAB PO PRN (14:17)
[2017-02-09] MEDS: diphenhydrAMINE HCL 25 MG CAP PO PRN (14:17)
[2017-02-09] MEDS: FILGRASTIM INJ 480 MCG in DEXTROSE 5% IN WATER INJ 25 ML IV SCH ×2 (14:17)
[2017-02-09] MEDS: TAMSULOSIN HCL 0.4 MG CAP PO SCH (21:37)
[2017-02-09] MEDS: ATORVASTATIN 40 MG TAB PO SCH (21:37)
[2017-02-10] VITALS (7 sets, daily range): BP systolic 97–115; BP diastolic 44–56; PULSE 75–85; RESP 18–20; TEMP 97.1–98.6; O2SAT 95–98
[2017-02-10 06:05] LABS: AUTOMATED NEUTROPHIL # 2.6 TH/MM3 (1.8-7.7); BASOPHIL % 0.2 % (0.0-2.0); EOSINOPHIL % 0.2 % (0.0-4.0); HEMATOCRIT 25.8 % (39.0-51.0); LYMPH % 16.3 % (9.0-44.0); LYMPHOCYTE # 0.6 TH/MM3 (1.0-4.8); MEAN CELL VOLUME 80.4 FL (80.0-100.0); MEAN CORPUSCULAR HEMOGLOBIN 28.3 PG (27.0-34.0); MEAN CORPUSCULAR HGB CONC 35.1 % (32.0-36.0); MONO % 11.7 % (0.0-8.0); NEUT % 71.6 % (16.0-70.0); RED BLOOD COUNT 3.21 MIL/MM3 (4.50-5.90); RED CELL DISTRIBUTION WIDTH 19.8 % (11.6-17.2); WHITE BLOOD COUNT 3.7 TH/MM3 (4.0-11.0)
[2017-02-10 06:14] LABS: HEMO FLAGS AUTO DIFF
[2017-02-10 06:17] LABS: PLATELET COUNT 18 TH/MM3 (150-450)
[2017-02-10] MEDS: MEGESTROL ACETATE SUSP 400 MG/10 ML CUP PO SCH (07:59)
[2017-02-10] MEDS: SOTALOL HCL 80 MG TAB PO SCH ×2 (07:59→20:41)
[2017-02-10] MEDS: FLUOCINOLONE ACETONIDE 0.01% CR 15 GM TUBE TOPICAL SCH ×2 (07:59→20:44)
[2017-02-10] MEDS: MAGNESIUM OXIDE 400 MG TAB PO SCH ×2 (08:05→20:41)
[2017-02-10] MEDS: MAGNESIUM HYDROXIDE SUSP 30 ML CUP PO SCH (08:05)
[2017-02-10] MEDS: LORATADINE 10 MG TAB PO SCH (08:06)
[2017-02-10] MEDS: TIOTROPIUM BROMIDE 18 MCG INH INH SCH (08:06)
[2017-02-10] MEDS: DOCUSATE SODIUM 100 MG CAP PO SCH (08:06)
[2017-02-10] MEDS: POTASSIUM CHLORIDE 10 MEQ CONTROLLED RELEASE TAB PO SCH (08:06)
[2017-02-10] MEDS: SODIUM CHLORIDE 0.9% FLUSH 10 ML FLUSH IV FLUSH SCH ×2 (08:06→20:40)
--- NOTE | 2017-02-10 09:24 | PD.ONC.PN ---
Subjective Subjective Remarks Afebrile overnight. Patient feeling very well today. he states he feels stronger every day. He noticed a scant amount of swelling in his legs which he states he takes a water pill for at home, but has not been taking since he had the chemotherapy. Objective Data Date Time Temp Pulse Resp B/P Pulse Ox O2 Delivery O2 Flow Rate FiO2 02/10/17 04:00 98.6 75 19 114/50 97 02/10/17 00:00 97.1 82 19 112/50 98 02/09/17 20:00 97.9 77 18 109/48 98 02/09/17 18:01 97.2 73 16 116/52 97 02/09/17 15:20 98.1 89 16 103/57 95 02/09/17 14:54 98.9 81 16 101/46 96 02/09/17 12:45 97.2 83 16 109/53 98 02/10/17 02/10/17 02/10/17 07:00 15:00 23:00 Intake Total 240 ml Output Total 700 ml Balance -460 ml Result Diagram: 02/10/17 0532 02/09/17 0515 Laboratory Results Laboratory Tests Test 02/09/17 02/10/17 10:50 05:32 Blood Type A POSITIVE Antibody Screen NEGATIVE Crossmatch Leukocyte-Reduced Red Blood Cells Blood Bank Comment White Blood Count 3.7 TH/MM3 Red Blood Count 3.21 MIL/MM3 Hemoglobin 9.1 GM/DL Hematocrit 25.8 % Mean Corpuscular Volume 80.4 FL Mean Corpuscular Hemoglobin 28.3 PG Mean Corpuscular Hemoglobin 35.1 % Concent Red Cell Distribution Width 19.8 % Platelet Count 18 TH/MM3 Mean Platelet Volume 8.5 FL Neutrophils (%) (Auto) 71.6 % Lymphocytes (%) (Auto) 16.3 % Monocytes (%) (Auto) 11.7 % Eosinophils (%) (Auto) 0.2 % Basophils (%) (Auto) 0.2 % Neutrophils # (Auto) 2.6 TH/MM3 Lymphocytes # (Auto) 0.6 TH/MM3 Monocytes # (Auto) 0.4 TH/MM3 Eosinophils # (Auto) 0.0 TH/MM3 Basophils # (Auto) 0.0 TH/MM3 CBC Comment AUTO DIFF Magnesium Level 1.6 MG/DL Culture Results Microbiology Date/Time Procedure Status Source Growth 02/09/17 14:10 Stool Occult Blood (STAN) - Final Complete Stool Stool HEMOCCULT NEGATIVE Administered Medications Medications (Trade) Dose Ordered Sig/Arron Route PRN Reason Start Time Stop Time Status Last Admin Dose Admin Sodium Chloride (NS Flush) 2 ml UNSCH PRN IV FLUSH FLUSH AFTER USING IV ACCESS 01/31/17 08:15 02/04/17 03:40 Sodium Chloride (NS Flush) 2 ml BID IV FLUSH 01/31/17 09:00 02/10/17 08:06 Ondansetron HCl (Zofran Inj) 4 mg Q6H PRN IVP NAUSEA OR VOMITING 01/31/17 08:15 02/05/17 16:41 Zolpidem Tartrate (Ambien) 5 mg HS PRN PO INSOMNIA 01/31/17 08:15 02/03/17 22:25 Acetaminophen (Tylenol) 650 mg Q6H PRN PO PAIN SCALE 3 TO 5 01/31/17 08:15 02/05/17 21:34 Oxycodone/ Acetaminophen (Percocet 5-325 Mg) 1 tab Q6H PRN PO PAIN SCALE 6 TO 8 01/31/17 08:15 02/01/17 20:20 Atorvastatin Calcium (Lipitor) 40 mg HS PO 01/31/17 21:00 02/09/17 21:37 Bumetanide (Bumetanide) 1 mg DAILY PO 01/31/17 09:00 Hold 02/02/17 09:27 Tamsulosin HCl (Flomax) 0.8 mg HS PO 01/31/17 21:00 02/09/17 21:37 Tiotropium [place] (Spiriva Inh) 18 mcg DAILY INH 01/31/17 10:00 02/10/17 08:06 Fluocinolone Acetonide (Synalar 0.01% Cream) 1 applic BID TOPICAL 01/31/17 10:00 02/10/17 07:59 Docusate Sodium (Colace) 100 mg DAILY PO 01/31/17 09:00 02/10/17 08:06 Potassium Chloride (KCl) 20 meq DAILY PO 02/01/17 09:00 02/10/17 08:06 Sotalol HCl (Betapace) 80 mg BID PO 02/03/17 21:00 02/09/17 21:38 Loratadine (Claritin) 10 mg DAILY PO 02/04/17 09:00 02/10/17 08:06 Magnesium Oxide (Mag-Ox) 400 mg Q12HR PO 02/05/17 09:00 02/10/17 08:05 Magnesium Hydroxide (Milk Of Magnkamryn Liq) 30 ml DAILY PO 02/08/17 09:00 02/10/17 08:05 Acetaminophen (Tylenol) 650 mg UNSCH PRN PO PRIOR TO BLOOD PRODUCTS 02/08/17 09:15 02/09/17 14:17 Diphenhydramine HCl 25 mg 25 mg UNSCH PRN PO PRIOR TO BLOOD PRODUCTS 02/08/17 09:15 02/09/17 14:17 Filgrastim/ Dextrose (Neupogen Inj/ D5W Inj) 26.6 ml @ 53.2 mls/hr DAILY@14 IV 02/09/17 14:00 02/09/17 14:17 Objective Remarks GENERAL: Elderly male, sitting up in chair next to bed in [facility] SKIN: Warm and dry. HEAD: Normocephalic. EYES: No injection or drainage. NECK: Supple, trachea midline. CARDIOVASCULAR: Regular rate and rhythm RESPIRATORY: Breath sounds equal bilaterally. No accessory muscle use. GASTROINTESTINAL: Abdomen soft, non-tender, nondistended. EXTREMITIES: No cyanosis. trace edema, bilateral ankles NEUROLOGICAL: awake and alert, normal speech. moving all extremities. Assessment/Plan Problem List: (1) Lung cancer Status: Chronic Plan: --further treatment will be outpatient -- currently getting concurrent chemotherapy (cisplatin and Etoposide) and radiation treatments. --01/24-->completed cycle #3 (2) Pancytopenia Status: Acute Plan: --transfuse pRBC as needed to keep hgb>7 --transfuse platelets as needed to keep platelets>10 --Blood cultures show no growth --s/p Neulasta and started on Neupogen on 02/05/17 (3) Syncope Status: Acute Plan: --receiving IVF, monitor electrolytes --secondary to acute anemia and intravascular volume loss. --s/p transfusion pRBC --CT brain negative --troponins negative --do not believe the syncope is related to any cardiac or neurologic abnormality. Assessment 71y/o male with history of stage III small-cell lung cancer who presented with an episode of syncope. --presented to the emergency department after he experienced an episode of syncope-->was sitting on the toilet when he felt lightheaded and he fell down. unresponsive for two to three minutes, but then he became awake and alert and responded to conversations. History of BPH status post TURP. History of carotid artery stenosis status post CEA. Peripheral artery disease status post multiple stents and Bypasses. Bilateral subclavian stenosis. Hypertension Paroxysmal a. fib status post ablation Plan 1. monitor CBC--patient could go home and be transfused as outpatient until his counts recover. However, he states he would like to stay in the hospital until his counts start to trend upward again. 2. no transfusion today 3. stop Neupogen tomorrow once WBC>5K Attending Statement The exam, history, and the medical decision-making described in the above note were completed with the assistance of the mid-level provider. I reviewed and agree with the findings presented. I attest that I had a [id number] encounter with the patient on the same day, and personally performed and documented my assessment and findings in the medical record. Will transfuse 1 unit of platelets Iron study show high serum levels due to recent transfusion Hb adequate today OK to d/c in AM after platelet transfusion if no new issues. Labs in [place] on Saturday and --CBC Follow-up in clinic in 1 week d/w rn Problem Qualifiers (1) Syncope: Qualified Code: R55 - Syncope, unspecified syncope type Shamika May Feb 10, 2017 09:24 Danilo Michelle MD Feb 10, 2017 22:39
[2017-02-10 09:27] LABS: BANDS 27 % (0-6); DOHLE BODIES PRESENT (NONE SEEN); NEUTROPHIL # MANUAL DIFF 2.7 TH/MM3 (1.8-7.7); PLATELET ESTIMATE SMEAR RARE (NORMAL); PLATELET MORPHOLOGY NORMAL (NORMAL); POLYS (SEG NEUTROPHILS) 45 % (16-70); SCAN/DIFF FINAL DIFF MANUAL; WBC DIFF SAMPLE 100
--- NOTE | 2017-02-10 10:12 | HHI.FPPN ---
Subjective Remarks Sitting up in chair, no complaints this morning. Has a good appetite. In a good mood. No complaints of pain. Normal bowel movements per report. Objective Vitals Vital Signs Date Time Temp Pulse Resp B/P Pulse Ox O2 Delivery O2 Flow Rate FiO2 02/10/17 04:00 98.6 75 19 114/50 97 02/10/17 00:00 97.1 82 19 112/50 98 02/09/17 20:00 97.9 77 18 109/48 98 02/09/17 18:01 97.2 73 16 116/52 97 02/09/17 15:20 98.1 89 16 103/57 95 02/09/17 14:54 98.9 81 16 101/46 96 02/09/17 12:45 97.2 83 16 109/53 98 I/O 02/09/17 02/09/17 02/09/17 02/10/17 02/10/17 02/10/17 07:00 15:00 23:00 07:00 15:00 23:00 Intake Total 550 ml 720 ml 480 ml 240 ml Output Total 1260 ml 1200 ml 650 ml 700 ml Balance -710 ml -480 ml -170 ml -460 ml Intake Oral 550 ml 720 ml 480 ml 240 ml Output Urine Total 1260 ml 1200 ml 650 ml 700 ml # Voids 5 # Bowel Movements 0 1 1 Result Diagram: 02/10/17 0532 02/09/17 0515 Objective Remarks GEN: Sitting up in chair, comfortable, NAD SKIN: No rashes or lesions. HEENT: hair loss from chemo, no conjunctivitis, no nasal discharge. RESP: CTAB, no crackles or wheezes CV: NRRR, 2/6 systolic flow murmur RUSB Extremity: Trace edema. Moves all extremities without difficulty. A/P Assessment and Plan 71-year-old male with past medical history of stage III small cell lung cancer currently receiving chemotherapy, presented to emergency department after syncope, found to have severe pancytopenia Discharge Planning Pending improvement in blood counts Problem List: (1) Pancytopenia Status: Acute Plan: On chemotherapy and presenting with severe pancytopenia with severe neutropenia. Likely myelosuppression from chemotherapy. Today: WBC 3.7, hgb 9.1 , hct 25.8, plt 18. ANC is up to 2664. Received 1 PRBC yesterday. - Oncology consulted, appreciate recommendations - Cefepime for prophylactic management discontinued. - Transfusion criteria: Plt < 10, Hgb < 7.0 or active bleeding (2) Lung cancer Status: Chronic Plan: Currently managed with chemotherapy and radiation - Management per heme-oncology as an outpatient (3) Coronary artery disease Status: Chronic Plan: Stable - Hold ASA/Plavix for low platelets/hemoglobin - Continue home statin (4) Peripheral artery disease Status: Chronic Plan: Symptoms stable - Hold ASA/Plavix given low platelets and hgb - Continue home statin (5) COPD (chronic obstructive pulmonary disease) Status: Chronic Plan: Continue home tiotropium Albuterol PRN (6) Hypertension Status: Chronic Plan: BP normal currently - Continue sotalol 80 mg PO BID (7) Atrial fibrillation, currently in sinus rhythm Status: Chronic Plan: History of atrial fibrillation - Due to slightly low BPs and HR in good control, decreased dose of sotalol to 80 mg BID (8) FEN/PPX Status: Acute Plan: Fluids: PO Elecs: Monitor periodically and replete as needed Diet: Regular basic DVT: Pharmacologic ppx contraindicated; SCDs sdw Dr. Gamez Problem Qualifiers (1) Coronary artery disease: Qualified Code: I25.118 - Coronary artery disease of [place] artery of [place] heart with stable angina pectoris (2) COPD (chronic obstructive pulmonary disease): Qualified Code: J44.9 - Chronic obstructive pulmonary disease, unspecified COPD type (3) Hypertension: Qualified Code: I10 - Essential hypertension Adithya Reina MD R2 Feb 10, 2017 10:12
[2017-02-10] MEDS: FILGRASTIM INJ 480 MCG in DEXTROSE 5% IN WATER INJ 25 ML IV SCH ×2 (14:06)
[2017-02-10] MEDS: ATORVASTATIN 40 MG TAB PO SCH (20:41)
[2017-02-10] MEDS: TAMSULOSIN HCL 0.4 MG CAP PO SCH (20:41)
[2017-02-11] VITALS: BP 122/52; PULSE 85; RESP 18; TEMP 98; O2SAT 99
[2017-02-11 04:00] VITALS: BP 102/44; PULSE 78; RESP 18; TEMP 97.8; O2SAT 98
[2017-02-11 05:44] LABS: HEMATOCRIT 26.1 % (39.0-51.0); MEAN CELL VOLUME 81.7 FL (80.0-100.0); MEAN CORPUSCULAR HEMOGLOBIN 27.8 PG (27.0-34.0); RED CELL DISTRIBUTION WIDTH 19.9 % (11.6-17.2); WHITE BLOOD COUNT 5.6 TH/MM3 (4.0-11.0)
[2017-02-11 05:48] LABS: HEMO FLAGS AUTO DIFF; PLATELET COUNT 16 TH/MM3 (150-450)
[2017-02-11 05:53] LABS: BICARBONATE 26.9 MEQ/L (21.0-32.0); MAGNESIUM 1.6 MG/DL (1.5-2.5); POTASSIUM 4.5 MEQ/L (3.5-5.1)
[2017-02-11] MEDS: diphenhydrAMINE HCL 25 MG CAP PO PRN (05:59)
[2017-02-11] MEDS: ACETAMINOPHEN 325 MG TAB PO PRN (06:00)
[2017-02-11 06:47] VITALS: BP 104/53; PULSE 78; RESP 16; TEMP 97.4; O2SAT 95
[2017-02-11 07:05] VITALS: BP 93/44; PULSE 76; RESP 16; TEMP 97.6; O2SAT 96
[2017-02-11 07:15] LABS: BANDS 24 % (0-6); METAMYELOCYTES 4 % (0-1); MYELOCYTES 3 % (0-0); NEUTROPHIL # MANUAL DIFF 4.3 TH/MM3 (1.8-7.7); POLYS (SEG NEUTROPHILS) 44 % (16-70); PROMYELOCYTES 1 % (0-0); WBC DIFF SAMPLE 100
[2017-02-11 07:16] LABS: OVALOCYTES 1+ (NORMAL); PLATELET ESTIMATE SMEAR RARE (NORMAL); PLATELET MORPHOLOGY NORMAL (NORMAL); SCAN/DIFF FINAL DIFF MANUAL
[2017-02-11 08:00] VITALS: BP 102/52; PULSE 76; RESP 18; TEMP 97.4; O2SAT 96
[2017-02-11] MEDS: MAGNESIUM OXIDE 400 MG TAB PO SCH (08:49)
[2017-02-11] MEDS: DOCUSATE SODIUM 100 MG CAP PO SCH (08:49)
[2017-02-11] MEDS: LORATADINE 10 MG TAB PO SCH (08:49)
[2017-02-11] MEDS: POTASSIUM CHLORIDE 10 MEQ CONTROLLED RELEASE TAB PO SCH (08:49)
[2017-02-11] MEDS: SODIUM CHLORIDE 0.9% FLUSH 10 ML FLUSH IV FLUSH SCH (08:50)
[2017-02-11] MEDS: SOTALOL HCL 80 MG TAB PO SCH (08:50)
[2017-02-11] MEDS: MAGNESIUM HYDROXIDE SUSP 30 ML CUP PO SCH (08:51)
[2017-02-11] MEDS: MEGESTROL ACETATE SUSP 400 MG/10 ML CUP PO SCH (08:53)
[2017-02-11] MEDS: FLUOCINOLONE ACETONIDE 0.01% CR 15 GM TUBE TOPICAL SCH (08:53)
--- NOTE | 2017-02-11 11:01 | HHI.FF ---
Face to Face Verification Diagnosis: (1) Lung cancer (2) COPD (chronic obstructive pulmonary disease) (3) Pancytopenia (4) Peripheral artery disease (5) Coronary artery disease Physical Therapy Order: Evaluate and Treat Home Health Nursing Order: Medical education Signs/symptoms of disease process I have seen patient Charles Venegas on 02/11/17. My clinical findings support the need for the requested home health care services because: Ltd mobility - disease progression Patient has SOB Deconditioned w/ increased weakness I certify that my clinical findings support that this patient is homebound because: Hx COPD- exertion dyspnea/weakness Bandar Treadwell MD R1 Feb 11, 2017 11:01
[2017-02-11] MEDS ORDERED: SOTA80 PO (11:02)
--- NOTE | 2017-02-11 11:28 | HHI.FPPN ---
Subjective Remarks No acute events overnight. Still feels slightly weak but overall better. No CP/ SOB, N/V, abdominal pain, swelling. (Bandar Treadwell MD R1) Objective Vitals Vital Signs Date Time Temp Pulse Resp B/P Pulse Ox O2 Delivery O2 Flow Rate FiO2 02/11/17 08:00 97.4 76 18 102/52 96 02/11/17 07:05 97.6 76 16 93/44 96 02/11/17 06:47 97.4 78 16 104/53 95 02/11/17 04:00 97.8 78 18 102/44 98 02/11/17 00:00 98.0 85 18 122/52 99 02/10/17 20:00 97.9 81 18 110/54 95 02/10/17 15:50 97.4 85 20 115/56 96 02/10/17 13:58 77 115/54 02/10/17 11:50 97.4 79 20 97/44 96 I/O 02/10/17 02/10/17 02/10/17 02/11/17 02/11/17 02/11/17 07:00 15:00 23:00 07:00 15:00 23:00 Intake Total 240 ml 980 ml 480 ml 240 ml Output Total 700 ml 300 ml 150 ml 450 ml Balance -460 ml 680 ml 330 ml -210 ml Intake Oral 240 ml 980 ml 480 ml 240 ml Output Urine Total 700 ml 300 ml 150 ml 450 ml # Bowel Movements 2 (Bandar Treadwell MD R1) Result Diagram: 02/11/17 0510 02/11/17 0510 Objective Remarks GEN: Sitting up in chair, comfortable, NAD SKIN: No rashes or lesions. HEENT: hair loss from chemo, no conjunctivitis, no nasal discharge. RESP: CTAB, no crackles or wheezes CV: NRRR, soft blowing 2/6 systolic flow murmur RUSB Extremity: Trace edema. Moves all extremities without difficulty (Bandar Treadwell MD R1) A/P Assessment and Plan 71-year-old male with past medical history of stage III small cell lung cancer currently receiving chemotherapy, presented to emergency department after syncope, found to have severe pancytopenia Discharge Planning Home today with outpatient monitoring of blood counts (Bandar Treadwell MD R1) Attending Attestation Patient seen and examined, discussed with Dr Treadwell. I agree with assessment and management as documented and discussed with me. Pt resting comfortably when I enter room. No complaints/concerns from nursing. Discharge home today, with outpatient CBC follow up. (Lia Gamez MD) Problem List: (1) Pancytopenia Status: Acute Plan: On chemotherapy and presenting with severe pancytopenia with severe neutropenia. Likely myelosuppression from chemotherapy. Today: WBC 3.7, hgb 9.1 , hct 25.8, plt 18. ANC is up to 2664. Received 1 PRBC yesterday. - Oncology consulted, appreciate recommendations - stable for discharge with follow up CBCs if patient and comfortable; per patient, they were nervous about follow up but if monitoring would be done and transfusion could be arranged out of hospital, he would prefer to be home. - Heme/onc to arrange CBC monitoring - Transfusion criteria: Plt < 10, Hgb < 7.0 or active bleeding (2) Lung cancer Status: Chronic Plan: Currently managed with chemotherapy and radiation - Management per heme-oncology as an outpatient (3) Coronary artery disease Status: Chronic Plan: Stable - Hold ASA/Plavix for low platelets/hemoglobin; resume as outpatient once H/H and Plt recover - Continue home statin (4) Peripheral artery disease Status: Chronic Plan: Symptoms stable - Hold ASA/Plavix as above - Continue home statin (5) COPD (chronic obstructive pulmonary disease) Status: Chronic Plan: Continue home tiotropium Albuterol PRN (6) Hypertension Status: Chronic Plan: BP normal currently - Continue sotalol 80 mg PO BID (7) Atrial fibrillation, currently in sinus rhythm Status: Chronic Plan: History of atrial fibrillation - Due to slightly low BPs and HR in good control, decreased dose of sotalol to 80 mg BID - f/u with major case detective (within [place] hospital system) (8) FEN/PPX Status: Acute Plan: Fluids: PO Elecs: Monitor periodically and replete as needed Diet: Regular basic DVT: Pharmacologic ppx contraindicated; SCDs dw Dr. Gamez (Bandar Treadwell MD R1) Problem Qualifiers (1) Coronary artery disease: Qualified Code: I25.118 - Coronary artery disease of [place] artery of [place] heart with stable angina pectoris (2) COPD (chronic obstructive pulmonary disease): Qualified Code: J44.9 - Chronic obstructive pulmonary disease, unspecified COPD type (3) Hypertension: Qualified Code: I10 - Essential hypertension Bandar Treadwell MD R1 Feb 11, 2017 11:12 Lia Gamez MD Feb 11, 2017 14:26
[2017-02-11] MEDS: TIOTROPIUM BROMIDE 18 MCG INH INH SCH (11:58)
--- NOTE | 2017-02-11 12:07 | PD.ONC.PN ---
Subjective Subjective Remarks Afebrile overnight. Patient reports he is comfortable with going home today. Denies bleeding. feels improved. Objective Data Date Time Temp Pulse Resp B/P Pulse Ox O2 Delivery O2 Flow Rate FiO2 02/11/17 08:00 97.4 76 18 102/52 96 02/11/17 07:05 97.6 76 16 93/44 96 02/11/17 06:47 97.4 78 16 104/53 95 02/11/17 04:00 97.8 78 18 102/44 98 02/11/17 00:00 98.0 85 18 122/52 99 02/10/17 20:00 97.9 81 18 110/54 95 02/10/17 15:50 97.4 85 20 115/56 96 02/10/17 13:58 77 115/54 02/11/17 02/11/17 02/11/17 07:00 15:00 23:00 Intake Total 240 ml Output Total 450 ml Balance -210 ml Result Diagram: 02/11/17 0510 02/11/17 0510 Laboratory Results Laboratory Tests Test 02/11/17 02/11/17 00:19 05:10 Blood Bank Comment White Blood Count 5.6 TH/MM3 Red Blood Count 3.20 MIL/MM3 Hemoglobin 8.9 GM/DL Hematocrit 26.1 % Mean Corpuscular Volume 81.7 FL Mean Corpuscular Hemoglobin 27.8 PG Mean Corpuscular Hemoglobin 34.0 % Concent Red Cell Distribution Width 19.9 % Platelet Count 16 TH/MM3 Mean Platelet Volume 9.0 FL Neutrophils (%) (Auto) % Lymphocytes (%) (Auto) % Monocytes (%) (Auto) % Eosinophils (%) (Auto) % Basophils (%) (Auto) % Neutrophils # (Auto) TH/MM3 Lymphocytes # (Auto) TH/MM3 Monocytes # (Auto) TH/MM3 Eosinophils # (Auto) TH/MM3 Basophils # (Auto) TH/MM3 CBC Comment AUTO DIFF Differential Total Cells 100 Counted Neutrophils % (Manual) 44 % Band Neutrophils % 24 % Lymphocytes % 19 % Monocytes % 5 % Neutrophils # (Manual) 4.3 TH/MM3 Metamyelocytes 4 % Myelocytes 3 % Promyelocytes 1 % Differential Comment FINAL DIFF MANUAL Platelet Estimate RARE Platelet Morphology Comment NORMAL Ovalocytes 1+ Sodium Level 140 MEQ/L Potassium Level 4.5 MEQ/L Chloride Level 105 MEQ/L Carbon Dioxide Level 26.9 MEQ/L Anion Gap 8 MEQ/L Blood Urea Nitrogen 18 MG/DL Creatinine 0.78 MG/DL Estimat Glomerular Filtration 98 ML/MIN Rate Random Glucose 100 MG/DL Calcium Level 9.0 MG/DL Magnesium Level 1.6 MG/DL Culture Results Microbiology Date/Time Procedure Status Source Growth 02/09/17 14:10 Stool Occult Blood (STAN) - Final Complete Stool Stool HEMOCCULT NEGATIVE Administered Medications Medications (Trade) Dose Ordered Sig/Arron Route PRN Reason Start Time Stop Time Status Last Admin Dose Admin Sodium Chloride (NS Flush) 2 ml UNSCH PRN IV FLUSH FLUSH AFTER USING IV ACCESS 01/31/17 08:15 02/04/17 03:40 Sodium Chloride (NS Flush) 2 ml BID IV FLUSH 01/31/17 09:00 02/11/17 08:50 Ondansetron HCl (Zofran Inj) 4 mg Q6H PRN IVP NAUSEA OR VOMITING 01/31/17 08:15 02/05/17 16:41 Zolpidem Tartrate (Ambien) 5 mg HS PRN PO INSOMNIA 01/31/17 08:15 02/03/17 22:25 Acetaminophen (Tylenol) 650 mg Q6H PRN PO PAIN SCALE 3 TO 5 01/31/17 08:15 02/05/17 21:34 Oxycodone/ Acetaminophen (Percocet 5-325 Mg) 1 tab Q6H PRN PO PAIN SCALE 6 TO 8 01/31/17 08:15 02/01/17 20:20 Atorvastatin Calcium (Lipitor) 40 mg HS PO 01/31/17 21:00 02/10/17 20:41 Bumetanide (Bumetanide) 1 mg DAILY PO 01/31/17 09:00 Hold 02/02/17 09:27 Tamsulosin HCl (Flomax) 0.8 mg HS PO 01/31/17 21:00 02/10/17 20:41 Tiotropium [place] (Spiriva Inh) 18 mcg DAILY INH 01/31/17 10:00 02/11/17 11:58 Fluocinolone Acetonide (Synalar 0.01% Cream) 1 applic BID TOPICAL 01/31/17 10:00 02/11/17 08:53 Docusate Sodium (Colace) 100 mg DAILY PO 01/31/17 09:00 02/11/17 08:49 Potassium Chloride (KCl) 20 meq DAILY PO 02/01/17 09:00 02/11/17 08:49 Sotalol HCl (Betapace) 80 mg BID PO 02/03/17 21:00 02/10/17 20:41 Loratadine (Claritin) 10 mg DAILY PO 02/04/17 09:00 02/11/17 08:49 Magnesium Oxide (Mag-Ox) 400 mg Q12HR PO 02/05/17 09:00 02/11/17 08:49 Magnesium Hydroxide (Milk Of [place]bil [place]) 30 ml DAILY PO 02/08/17 09:00 02/11/17 08:51 Acetaminophen (Tylenol) 650 mg UNSCH PRN PO PRIOR TO BLOOD PRODUCTS 02/08/17 09:15 02/11/17 06:00 Diphenhydramine HCl (Benadryl) 25 mg UNSCH PRN PO PRIOR TO BLOOD PRODUCTS 02/08/17 09:15 02/11/17 05:59 Objective Remarks GENERAL: Elderly male, lying in bed in nad. SKIN: Warm and dry. HEAD: Normocephalic. EYES: No injection or drainage. NECK: Supple, trachea midline. CARDIOVASCULAR: Regular rate and rhythm RESPIRATORY: Breath sounds equal bilaterally. No accessory muscle use. GASTROINTESTINAL: Abdomen soft, non-tender, nondistended. EXTREMITIES: No cyanosis. trace edema, bilateral ankles NEUROLOGICAL: aox3. normal speech. moving extremities. Assessment/Plan Problem List: (1) Lung cancer Status: Chronic Plan: --further treatment will be outpatient -- currently getting concurrent chemotherapy (cisplatin and Etoposide) and radiation treatments. --01/24-->completed cycle #3, next cycle was planned for 02/13. (2) Pancytopenia Status: Acute Plan: --transfuse pRBC as needed to keep hgb>7 --transfuse platelets as needed to keep platelets>10 --Blood cultures show no growth --s/p Neulasta and started on Neupogen on 02/05/17 (3) Syncope Status: Acute Plan: --receiving IVF, monitor electrolytes --secondary to acute anemia and intravascular volume loss. --s/p transfusion pRBC --CT brain negative --troponins negative --do not believe the syncope is related to any cardiac or neurologic abnormality. Assessment 71y/o male with history of stage III small-cell lung cancer who presented with an episode of syncope. --presented to the emergency department after he experienced an episode of syncope-->was sitting on the toilet when he felt lightheaded and he fell down. unresponsive for two to three minutes, but then he became awake and alert and responded to conversations. History of BPH status post TURP. History of carotid artery stenosis status post CEA. Peripheral artery disease status post multiple stents and Bypasses. Bilateral subclavian stenosis. Hypertension Paroxysmal a. fib status post ablation Plan 1. stop Neupogen 2. clear for discharge. will have CBC every Saturday and in [place] until recovery. Attending Statement The exam, history, and the medical decision-making described in the above note were completed with the assistance of the mid-level provider. I reviewed and agree with the findings presented. I attest that I had a [id number] encounter with the patient on the same day, and personally performed and documented my assessment and findings in the medical record. Problem Qualifiers (1) Syncope: Qualified Code: R55 - Syncope, unspecified syncope type Shamika May Feb 11, 2017 12:07 Danilo Michelle MD Feb 11, 2017 22:59
--- NOTE | 2017-02-11 13:49 | HHI.DS ---
Discharge Summary Admission Date Jan 31, 2017 at 07:17 Discharge Date: Feb 11, 2017 Admitting Diagnosis Pancytopenia (1) Pancytopenia Diagnosis: Principal Plan: On chemotherapy and presenting with severe pancytopenia with severe neutropenia. Likely myelosuppression from chemotherapy. Today: WBC 3.7, hgb 9.1 , hct 25.8, plt 18. ANC is up to 2664. Received 1 PRBC yesterday. - Oncology consulted, appreciate recommendations - stable for discharge with follow up CBCs if patient and comfortable; per patient, they were nervous about follow up but if monitoring would be done and transfusion could be arranged out of hospital, he would prefer to be home. - Heme/onc to arrange CBC monitoring - Transfusion criteria: Plt < 10, Hgb < 7.0 or active bleeding (2) Lung cancer Diagnosis: Secondary Plan: Currently managed with chemotherapy and radiation - Management per heme-oncology as an outpatient (3) Coronary artery disease Diagnosis: Secondary Plan: Stable - Hold ASA/Plavix for low platelets/hemoglobin; resume as outpatient once H/H and Plt recover - Continue home statin (4) Peripheral artery disease Diagnosis: Secondary Plan: Symptoms stable - Hold ASA/Plavix as above - Continue home statin (5) COPD (chronic obstructive pulmonary disease) Diagnosis: Secondary Plan: Continue home tiotropium Albuterol PRN (6) Hypertension Diagnosis: Secondary Plan: BP normal currently - Continue sotalol 80 mg PO BID (7) Atrial fibrillation, currently in sinus rhythm Diagnosis: Secondary Plan: History of atrial fibrillation - Due to slightly low BPs and HR in good control, decreased dose of sotalol to 80 mg BID - f/u with retort operator (within [place] hospital system) Consultants Oncology - Dr. Deepak Michelle, Leah COLUNGA Brief History 71-year-old with past medical history of peripheral vascular disease, stage III small cell lung cancer currently being treated with chemotherapy, atrial fibrillation status post ablation presenting with syncope. This morning, he was sitting on the toilet and on trying to stand up felt a little bit lightheaded and passed out, falling forward and bumping his head. According to his , he was unconscious for about 2-3 minutes after which time he became awake and alert and responded to commands. He denies any chest pain, palpitations, shortness of breath prior to or following the episode. He denies any focal weakness or confusion during or after the episode. His did not note any seizure-like activity or tongue biting, but she did say that he lost bowel/ bladder continence on passing out. His current chemotherapy regimen includes cisplatin and radiation therapy. He also receives Neulasta. His last dose of chemotherapy was about 7 days ago. Of note, he was recently seen in the [facility] medicine clinic on 01/25 for feelings of malaise, congestion, runny nose. At that time he was treated with doxycycline. His congestion symptoms have resolved but his fatigue continued to worsen up until this syncopal episode. Regarding his cardiac history, most recent echocardiogram was done February 2016 and showed an ejection fraction of 60%. He also had a cardiac catheterization with stenting in 2016. CBC/BMP: 02/11/17 0510 02/11/17 0510 Significant Findings Laboratory Tests Test 02/08/17 02/09/17 02/10/17 02/11/17 16:22 05:15 05:32 05:10 Platelet Count 33 TH/MM3 22 TH/MM3 18 TH/MM3 16 TH/MM3 (150-450) (150-450) (150-450) (150-450) White Blood Count 1.7 TH/MM3 3.7 TH/MM3 (4.0-11.0) (4.0-11.0) Red Blood Count 2.63 MIL/MM3 3.21 MIL/MM3 3.20 MIL/MM3 (4.50-5.90) (4.50-5.90) (4.50-5.90) Hemoglobin 7.7 GM/DL 9.1 GM/DL 8.9 GM/DL (13.0-17.0) (13.0-17.0) (13.0-17.0) Hematocrit 21.7 % 25.8 % 26.1 % (39.0-51.0) (39.0-51.0) (39.0-51.0) Red Cell Distribution Width 18.5 % 19.8 % 19.9 % (11.6-17.2) (11.6-17.2) (11.6-17.2) Monocytes (%) (Auto) 9.2 % (0.0-8.0) 11.7 % (0.0-8.0) Neutrophils # (Auto) 1.1 TH/MM3 (1.8-7.7) Lymphocytes # (Auto) 0.4 TH/MM3 0.6 TH/MM3 (1.0-4.8) (1.0-4.8) Band Neutrophils % 10 % (0-6) 27 % (0-6) 24 % (0-6) Monocytes % 9 % (0-8) 9 % (0-8) Neutrophils # (Manual) 1.2 TH/MM3 (1.8-7.7) Dohle Bodies PRESENT (NONE PRESENT (NONE SEEN) SEEN) Platelet Estimate LOW (NORMAL) RARE (NORMAL) RARE (NORMAL) Ovalocytes 1+ (NORMAL) 1+ (NORMAL) Magnesium Level 1.4 MG/DL (1.5-2.5) Neutrophils (%) (Auto) 71.6 % (16.0-70.0) Metamyelocytes 4 % (0-1) Myelocytes 3 % (0-0) Promyelocytes 1 % (0-0) Imaging Last Impressions Head CT 01/31/17 0000 Signed Impressions: Service Date/Time: January 06:07 - CONCLUSION: 1. No acute intracranial abnormality. 2. 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 Thomas Díaz Jr., MD Hand X-Ray 01/31/17 0000 Signed Impressions: Service Date/Time: January 06:18 - CONCLUSION: 1. Dorsal soft tissue swelling. Thomas Díaz Jr., MD Chest X-Ray 01/31/17 0000 Signed Impressions: Service Date/Time: January 05:47 - CONCLUSION: No acute disease. Thomas Díaz Jr., MD PE at Discharge GEN: Sitting up in chair, comfortable, NAD SKIN: No rashes or lesions. HEENT: hair loss from chemo, no conjunctivitis, no nasal discharge. RESP: CTAB, no crackles or wheezes CV: NRRR, soft blowing 2/6 systolic flow murmur RUSB Extremity: Trace edema. Moves all extremities without difficulty Hospital Course Admitted for syncopal event, found to have pancytopenia (neutropenia, anemia, thrombocytopenia) due to recent chemotherapy with cisplatin. Head CT negative for acute process. Soft murmur on cardiac exam likely due to anemia, Echo february 2016 within normal limits. No indication of carotid stenosis. Heme/onc consulted and started Neupogen for neutropenia. Mr. Venegas required several transfusions of RBC and platelets totaling 6 units PRBC and 4 units Plt. Treated with IV cefepime for 9 days (until ANC corrected > 500). On discharge, ANC continuing to up-trend, Hgb stable around 9. His Plt count continues to decrease between Plt transfusions. Heme/onc cleared for discharge with outpatient monitoring of Plt count and outpatient transfusion as needed. Due to syncopal event and mild hypotension on admission, beta-jasmeet dose was decreased from 120 to 80 mg BID. He will follow up this change with his regular retort operator. Pt Condition on Discharge: Stable Discharge Disposition: Disch w/ Home Health Serv Discharge Instructions DIET: Follow Instructions for: As Tolerated, No Restrictions Activities you can perform: Regular-No Restrictions Follow up Referrals: Oncology - 1 Week with Danilo Michelle MD PCP Follow-up - 1 Week New Orders: CBC NO DIFF - Next Day New Medications: Sotalol (Sorine) 80 Mg Tab 80 MG PO BID #60 TAB Continued Medications: Atorvastatin (Atorvastatin) 40 Mg Tab 40 MG PO HS Cholesterol Management #30 Ref 0 TAB Bumetanide (Bumex) 1 Mg Tab 1 MG PO DAILY Ref 0 TAB Docusate Sodium (Stool Softener) 100 Mg Cap 1 CAP PO DAILY Multiple Vitamins W/ Minerals (Multivitamin Adults 50+) 1 Tab Tab Nitroglycerin SL (Nitrostat SL) 0.4 Mg Subl 0.4 MG SL DIRECTED 1 tablet under the tongue as needed for chest pain. Repeat every 5 minutes for a total of 3 DOSES or call 911 if NO relief. PRN CHEST PAIN #100 Ref 0 TAB.SL Nutritional Supplements (Equate) 1 Liq Liq Oxycodone-Acetaminophen (Percocet) 5-325 mg Tab 1 TAB PO Q4H PRN PAIN Ref 0 TAB Potassium Chloride ER (Potassium Chloride ER) 20 Meq Tab 20 MEQ PO DAILY Electrolyte Replacement #30 Ref 0 TAB Tamsulosin (Flomax) 0.4 Mg Cap 0.8 MG PO HS Manage Prostate Problems #120 Ref 6 CAP Tiotropium Inh (Spiriva [place]) 18 Mcg Cap 18 MCG INH DAILY 1 capsule = 18 mcg COPD #30 Ref 0 CAP Triamcinolone Topical (Triamcinolone Topical) 0.025 % Oint 1 APPLIC TOPICAL BID Inflammation Ref 0 GM Discontinued Medications: Aspirin (Aspir-) 81 Mg Tabdr Clopidogrel (Plavix) 75 Mg Tab 75 MG PO DAILY Blood Clot Prevention #30 Ref 0 TAB Sotalol (Sotalol) 120 Mg Tab 120 MG PO BID Regulate Heart Beat #60 Ref 0 TAB Bandar Treadwell MD R1 Feb 11, 2017 13:49
[2017-03-06] MEDS ORDERED: SOTA80 PO (07:18)
[2017-03-26] MEDS ORDERED: PLAV75TA29 PO (14:52)
== END 2017-02-11 13:11 | disposition home health service (06) | DRG 809 ==
LOC: NEPE 05:25 → NEDA 07:17 → HOCA 12:24
PROVIDERS: ADMIT Family Medicine; ATTEND Family Medicine
PROC: 30233R1 Transfusion of Nonautologous Platelets into Peripheral Vein, Percutaneous Approach (ICD-10-PCS; principal; 2017-01-31)
PROC: 30233N1 Transfusion of Nonautologous Red Blood Cells into Peripheral Vein, Percutaneous Approach (ICD-10-PCS; 2017-01-31)
DX: D61.810 Antineoplastic chemotherapy induced pancytopenia (principal); C34.90 Malignant neoplasm of unspecified part of unspecified bronchus or lung; I95.9 Hypotension, unspecified; I11.0 Hypertensive heart disease with heart failure; C77.9 Secondary and unspecified malignant neoplasm of lymph node, unspecified; I48.0 Paroxysmal atrial fibrillation; I50.9 Heart failure, unspecified; E86.0 Dehydration; T45.1X5A Adverse effect of antineoplastic and immunosuppressive drugs, initial encounter; J44.9 Chronic obstructive pulmonary disease, unspecified; R55 Syncope and collapse; I73.9 Peripheral vascular disease, unspecified; S60.212A Contusion of left wrist, initial encounter; E78.5 Hyperlipidemia, unspecified; G47.33 Obstructive sleep apnea (adult) (pediatric); I25.118 Atherosclerotic heart disease of native coronary artery with other forms of angina pectoris; E87.6 Hypokalemia; I70.8 Atherosclerosis of other arteries; K59.00 Constipation, unspecified; W18.12XA Fall from or off toilet with subsequent striking against object, initial encounter; Y92.002 Bathroom of unspecified non-institutional (private) residence as the place of occurrence of the external cause; Z80.0 Family history of malignant neoplasm of digestive organs; Z82.3 Family history of stroke; Z82.49 Family history of ischemic heart disease and other diseases of the circulatory system; Z87.891 Personal history of nicotine dependence; Z88.0 Allergy status to penicillin; Z88.5 Allergy status to narcotic agent; Z95.0 Presence of cardiac pacemaker; Z95.5 Presence of coronary angioplasty implant and graft
CPT/HCPCS: 36430; 70450; 71010; 73130; 80048; 80076; 82247; 82248; 82272; 82607; 82747; 83010; 83540; 83550; 83615; 83735; 84100; 84132; 84466; 84484; 85007; 85027; 85049; 85610; 85730; 86850; 86900; 86901; 86920; 86965; 87040; 93005; 96361; 96374; J0692; J1442; J2405; J3370; J3475; J3480; J7030; J7040; J7050; P9016; P9031; P9035

== ENCOUNTER → 2017-04-03 | Outpatient (CLI) | payer MEDICARE ==
[~2017-04-03] MED LIST changes: -ASPI1TAB7; -ASPI81TA81; -ATOR40TA49 PO; -AZIT500T2 PO; -BUME1TAB PO; -BUME1TAB26 PO; -CLOP75 PO; -METR0.7533 TOP; -METR0.756 TOPICAL; -NITR.4 SL; -PERC5TAB12 PO; -POTA1TAB17 PO; -SOTA120T PO; +SOTA80 PO; -TAB-TAB PO; -TRIA.1%T TOP
[2017-04-03 08:53] LABS: AUTOMATED NEUTROPHIL # 5.4 TH/MM3 (1.8-7.7); BASOPHIL % 0.6 % (0.0-2.0); EOSINOPHIL # 0.1 TH/MM3 (0-0.4); EOSINOPHIL % 2.2 % (0.0-4.0); HEMATOCRIT 27.4 % (39.0-51.0); LYMPH % 7.2 % (9.0-44.0); LYMPHOCYTE # 0.5 TH/MM3 (1.0-4.8); MEAN CELL VOLUME 92.9 FL (80.0-100.0); MEAN CORPUSCULAR HEMOGLOBIN 31.3 PG (27.0-34.0); MEAN CORPUSCULAR HGB CONC 33.7 % (32.0-36.0); MONO % 9.7 % (0.0-8.0); NEUT % 80.3 % (16.0-70.0); PLATELET COUNT 105 TH/MM3 (150-450); RED BLOOD COUNT 2.95 MIL/MM3 (4.50-5.90); RED CELL DISTRIBUTION WIDTH 29.4 % (11.6-17.2); WHITE BLOOD COUNT 6.8 TH/MM3 (4.0-11.0)
[2017-04-03 08:59] LABS: HEMO FLAGS AUTO DIFF
[2017-04-03 09:47] LABS: OVALOCYTES 1+ (NORMAL); PLATELET ESTIMATE SMEAR LOW (NORMAL); PLATELET MORPHOLOGY NORMAL (NORMAL); SCAN/DIFF AUTO DIFF CONFIRMED
== END ==
LOC: CLAB 08:16
PROVIDERS: ATTEND Family Medicine
DX: C34.90 Malignant neoplasm of unspecified part of unspecified bronchus or lung (principal)
CPT/HCPCS: 36415; 85025

== ENCOUNTER → 2017-05-16 | Outpatient (CLI) | payer MEDICARE ==
[2017-05-16 10:33] LABS: AUTOMATED NEUTROPHIL # 2.3 TH/MM3 (1.8-7.7); BASOPHIL % 0.5 % (0.0-2.0); EOSINOPHIL # 0.1 TH/MM3 (0-0.4); EOSINOPHIL % 2.9 % (0.0-4.0); HEMATOCRIT 25.7 % (39.0-51.0); LYMPH % 14.5 % (9.0-44.0); LYMPHOCYTE # 0.5 TH/MM3 (1.0-4.8); MEAN CELL VOLUME 105.7 FL (80.0-100.0); MEAN CORPUSCULAR HEMOGLOBIN 37.6 PG (27.0-34.0); MEAN CORPUSCULAR HGB CONC 35.6 % (32.0-36.0); MONO % 10.8 % (0.0-8.0); NEUT % 71.3 % (16.0-70.0); PLATELET COUNT 44 TH/MM3 (150-450); RED BLOOD COUNT 2.43 MIL/MM3 (4.50-5.90); RED CELL DISTRIBUTION WIDTH 23.6 % (11.6-17.2); WHITE BLOOD COUNT 3.3 TH/MM3 (4.0-11.0)
[2017-05-16 10:36] LABS: HEMO FLAGS AUTO DIFF
[2017-05-16 11:27] LABS: OVALOCYTES 2+ (NORMAL); SCAN/DIFF AUTO DIFF CONFIRMED
== END ==
LOC: CLAB 09:50
PROVIDERS: ATTEND Family Medicine
DX: C34.90 Malignant neoplasm of unspecified part of unspecified bronchus or lung (principal)
CPT/HCPCS: 36415; 85025; G0463; 99213